=== PATIENT | female | born 1990 | race Caucasian/White ===

== ENCOUNTER 2017-09-06 12:17 | Emergency (ER) | payer BC, OTHER ==
[2017-09-06 14:03] LABS: ALT 28 U/L (9-52); AST 28 U/L (14-36); Albumin 3.8 g/dL (3.5-5.0); Alkaline Phosphatase 61 U/L (38-126); Anion Gap 12 mmol/L; Basophils % (A) 0 %; Blood Urea Nitrogen 11 mg/dL (7-17); Calcium 8.9 mg/dL (8.4-10.2); Carbon Dioxide 22 mmol/L (22-30); Chloride 101 mmol/L (98-107); Eosinophils # (A) 0.1 k/uL (0-0.7); Eosinophils % (A) 1 %; Glucose 89 mg/dL (74-99); HCT 37.1 % (34.0-46.0); Lymphocytes # (A) 0.7 k/uL (1.0-4.8); Lymphocytes % (A) 9 %; MCH 27.3 pg (25.0-35.0); MCHC 35.1 g/dL (31.0-37.0); Mean Platelet Volume 6.6; Monocytes # (A) 0.3 k/uL (0-1.0); Monocytes % (A) 4 %; Neutrophils # (A) 6.4 k/uL (1.3-7.7); Neutrophils % (A) 84 %; Platelet Count 345 k/uL (150-450); Potassium 3.8 mmol/L (3.5-5.1); RBC 4.77 m/uL (3.80-5.40); RDW 13.6 % (11.5-15.5); Sodium 135 mmol/L (137-145); Total Bilirubin 0.5 mg/dL (0.2-1.3); Total Protein 7.1 g/dL (6.3-8.2); WBC 7.6 k/uL (3.8-10.6)
[2017-09-06 14:04] LABS: MCV 77.9 fL (80.0-100.0)
[2017-09-06] MEDS ORDERED: SODIUM CHLORIDE 0.9% 1,000 ML IV ONE (14:11)
[2017-09-06] MEDS ORDERED: ACETAMINOPHEN TAB 500 MG TAB PO STA (14:16)
--- NOTE | 2017-09-06 14:19 | ED ---
General Adult HPI - General Chief complaint: Dizziness Stated complaint: Dizzy, Nauseated Time Seen by Provider: 09/06/17 13:38 Source: patient Mode of arrival: wheelchair Limitations: no limitations - History of Present Illness Initial comments: 27-year-old 9 week female presenting with generalized body aches and nausea. Patient states his symptoms began yesterday evening. She states that she had subjective fevers and was unable to sleep secondary to her symptoms. She denies getting her flu shot this year. She denies any sick contacts. Denies any vaginal bleeding or discharge or abdominal pain. She isn't taking anything for her symptoms. Denies cough, CP, or shortness of breath - Related Data Home Medications Medication Instructions Recorded Confirmed Vgt-Bnms-Yeohz Acid 1 cap PO DAILY 09/06/17 09/06/17 [-U Capsule (formulary)] Previous Rx's Medication Instructions Recorded Cephalexin [Keflex] 500 mg PO Q12HR 7 Days #14 cap 09/06/17 L.acidoph,Paracasei, B.lactis 1 each PO DAILY #20 capsule 09/06/17 [Probiotic] Allergies Allergy/AdvReac Type Severity Reaction Status Date / Time amoxicillin trihydrate AdvReac Abdominal Verified 09/06/17 14:16 [From Augmentin] Pain potassium clavulanate AdvReac Abdominal Verified 09/06/17 14:16 [From Augmentin] Pain tegaderm Allergy Rash/Hives Uncoded 09/06/17 13:07 Review of Systems ROS Statement: Those systems with pertinent positive or pertinent negative responses have been documented in the HPI. Review of Systems Constitutional: Positive fever, chills Eyes: Denies change in vision, Denies pain Ears, nose, mouth, throat: Denies headaches, Denies sore throat Cardiovascular: Denies chest pain. Denies palpitations Respiratory: Denies shortness of breath, Denies cough Gastrointestinal: Denies abdominal pain. Admits to nausea. Denies vomiting or diarrhea. Genitourinary: Denies hematuria, Denies infections Musculoskeletal: Denies pain, Denies swelling. Positive myalgias Integumentary: Denies rash Neurological: Denies headache, focal weakness, focal numbness Psychiatric: Denies anxiety, Denies depression Hematologic/Lymphatic: Denies easy bleeding or bruising ROS Other: All systems not noted in ROS Statement are negative. Past Medical History Past Medical History: Fibromyalgia, GERD/Reflux Additional Past Medical History / Comment(s): Fibromyalgia, chronic pain, 2015 pancreatitis. History of Any Multi-Drug Resistant Organisms: None Reported Past Surgical History: Cholecystectomy Additional Past Surgical History / Comment(s): Dilation and Currettage Past Anesthesia/Blood Transfusion Reactions: No Reported Reaction Past Psychological History: No Psychological Hx Reported Smoking Status: Former smoker Past Alcohol Use History: None Reported Past Drug Use History: None Reported - Past Family History Father Family Medical History: Coronary Artery Disease (CAD) Additional Family Medical History / Comment(s): Hx CABG Mother Family Medical History: No Reported History General Exam - General Exam Comments Initial Comments: General: Awake, alert, No acute Distress HENT: Normocephalic. Atraumatic Eyes: PERRL. EOMI. No scleral icterus. No injected conjunctiva Neck: Full ROM Chest/Lungs: Clear to auscultation bilaterally. No wheezing, rhonchi, or rales Cardiac: Regular rate, rhythm. No murmurs or rubs Abdomen/GI: [Soft, nontender, nondistended. No rebound, guarding, or rigidity. Musculoskeletal: Full ROM Skin: Warm, dry, intact Neurologic: A/Ox3, no weakness, no sensory deficit, no abdnormal gait, no coordination deficit Limitations: no limitations Course Vital Signs 09/06/17 09/06/17 09/06/17 13:04 14:36 15:29 Temperature 100.3 F H 101.1 F H 99.0 F Pulse Rate 118 H 76 Respiratory 20 20 Rate Blood Pressure 96/57 93/46 O2 Sat by Pulse 100 99 Oximetry 09/06/17 15:39 Temperature Pulse Rate 98 Respiratory 20 Rate Blood Pressure 107/59 O2 Sat by Pulse Oximetry Medical Decision Making - Medical Decision Making 27-year-old 9 week female presenting with myalgias, subjective fever, nausea. Initial exam patient is awake, alert, no acute distress. She is tachycardic without hypotensive. She is febrile as well. Nontoxic-appearing on exam. Patient found to have UTI. She states her allergy to amoxicillin is abdominal cramping. Discussed taking Keflex with probiotics. She has no allergic reaction or anaphylactic reaction to the medication. Patient's tachycardia and fever have resolved. Her BP is 107/59. She feels improved. Unlikely sepsis at this time as patient has no leukocytosis and is nontoxic appearing. No further emergent workup indicated. The patient was given return to ED instructions. They were instructed to follow up with their primary care provider. Stable for discharge at this time. - Lab Data Result diagrams: 09/06/17 13:27 09/06/17 13:27 Lab Results 09/06/17 09/06/17 09/06/17 Range/Units 13: 13: 14:25 WBC 7.6 (3.8-10.6) k/uL RBC 4.77 (3.80-5.40) m/uL Hgb 13.0 (11.4-16.0) gm/dL Hct 37.1 (34.0-46.0) % MCV 77.9 L D (80.0-100.0) fL MCH 27.3 (25.0-35.0) pg MCHC 35.1 (31.0-37.0) g/dL RDW 13.6 (11.5-15.5) % Plt Count 345 (150-450) k/uL Neutrophils % 84 % Lymphocytes % 9 % Monocytes % 4 % Eosinophils % 1 % Basophils % 0 % Neutrophils # 6.4 (1.3-7.7) k/uL Lymphocytes # 0.7 L (1.0-4.8) k/uL Monocytes # 0.3 (0-1.0) k/uL Eosinophils # 0.1 (0-0.7) k/uL Basophils # 0.0 (0-0.2) k/uL Sodium 135 L (137-145) mmol/L Potassium 3.8 (3.5-5.1) mmol/L Chloride 101 (98-107) mmol/L Carbon Dioxide 22 (22-30) mmol/L Anion Gap 12 mmol/L BUN 11 (7-17) mg/dL Creatinine 0.45 L (0.52-1.04) mg/dL Est GFR (CKD-EPI)AfAm >90 (>60 ml/min/1.73 sqM) Est GFR (CKD-EPI)NonAf >90 (>60 ml/min/1.73 sqM) Glucose 89 (74-99) mg/dL Calcium 8.9 (8.4-10.2) mg/dL Total Bilirubin 0.5 (0.2-1.3) mg/dL AST 28 (14-36) U/L ALT 28 (9-52) U/L Alkaline Phosphatase 61 (38-126) U/L Total Protein 7.1 (6.3-8.2) g/dL Albumin 3.8 (3.5-5.0) g/dL Urine Color Yellow Urine Appearance Clear (Clear) Urine pH 6.0 (5.0-8.0) Ur Specific [place] 1.027 (1.001-1.035) Urine Protein Trace H (Negative) Urine Glucose (UA) Negative (Negative) Urine Ketones 2+ H (Negative) Urine Blood Negative (Negative) Urine Nitrite Negative (Negative) Urine Bilirubin Negative (Negative) Urine Urobilinogen <2.0 (<2.0) mg/dL Ur Leukocyte Esterase Moderate H (Negative) Urine RBC 1 (0-5) /hpf Urine WBC 23 H (0-5) /hpf Ur Squamous Epith Cells 6 H (0-4) /hpf Amorphous Sediment Occasional H (None) /hpf Urine Bacteria Rare H (None) /hpf Urine Mucus Few H (None) /hpf Influenza Type A RNA (Not Detectd) Influenza Type B (PCR) (Not Detectd) 09/06/17 Range/Units 14:25 WBC (3.8-10.6) k/uL RBC (3.80-5.40) m/uL Hgb (11.4-16.0) gm/dL Hct (34.0-46.0) % MCV (80.0-100.0) fL MCH (25.0-35.0) pg MCHC (31.0-37.0) g/dL RDW (11.5-15.5) % Plt Count (150-450) k/uL Neutrophils % % Lymphocytes % % Monocytes % % Eosinophils % % Basophils % % Neutrophils # (1.3-7.7) k/uL Lymphocytes # (1.0-4.8) k/uL Monocytes # (0-1.0) k/uL Eosinophils # (0-0.7) k/uL Basophils # (0-0.2) k/uL Sodium (137-145) mmol/L Potassium (3.5-5.1) mmol/L Chloride (98-107) mmol/L Carbon Dioxide (22-30) mmol/L Anion Gap mmol/L BUN (7-17) mg/dL Creatinine (0.52-1.04) mg/dL Est GFR (CKD-EPI)AfAm (>60 ml/min/1.73 sqM) Est GFR (CKD-EPI)NonAf (>60 ml/min/1.73 sqM) Glucose (74-99) mg/dL Calcium (8.4-10.2) mg/dL Total Bilirubin (0.2-1.3) mg/dL AST (14-36) U/L ALT (9-52) U/L Alkaline Phosphatase (38-126) U/L Total Protein (6.3-8.2) g/dL Albumin (3.5-5.0) g/dL Urine Color Urine Appearance (Clear) Urine pH (5.0-8.0) Ur Specific [place] (1.001-1.035) Urine Protein (Negative) Urine Glucose (UA) (Negative) Urine Ketones (Negative) Urine Blood (Negative) Urine Nitrite (Negative) Urine Bilirubin (Negative) Urine Urobilinogen (<2.0) mg/dL Ur Leukocyte Esterase (Negative) Urine RBC (0-5) /hpf Urine WBC (0-5) /hpf Ur Squamous Epith Cells (0-4) /hpf Amorphous Sediment (None) /hpf Urine Bacteria (None) /hpf Urine Mucus (None) /hpf Influenza Type A RNA Not Detected (Not Detectd) Influenza Type B (PCR) Not Detected (Not Detectd) Disposition Clinical Impression: UTI (urinary tract infection), Nausea, Febrile illness, acute Disposition: HOME SELF-CARE Condition: Good Instructions: Urinary Tract Infection in (ED), Nausea and Vomiting in (ED) Additional Instructions: Return to emergency department if unable to control fever with Tylenol at home, unable to tolerate foods and liquids, if you develop lower abdominal pain, vaginal bleeding, vaginal discharge. Use Benadryl 25 mg-50 mg every 8 hours as needed for nausea and vomiting. Prescriptions: Cephalexin [Keflex] 500 mg PO Q12HR 7 Days #14 cap L.acidoph,Paracasei, B.lactis [Probiotic] 1 each PO DAILY #20 capsule Referrals: Reuben Lobato DO [Primary Care Provider] - 1-2 days
[2017-09-06 14:53] LABS: Amorphous Sediment,Urine Occasional /hpf; Appearance,Urine Clear (Clear); Bacteria,Urine Rare /hpf; Bilirubin,Urine Negative (Negative); Blood,Urine Negative (Negative); Color,Urine Yellow; Glucose,Urine (UA) Negative (Negative); Ketones,Urine 2+ (Negative); Leukocyte Esterase,Urine Moderate (Negative); Mucus,Urine Few /hpf; Nitrite,Urine Negative (Negative); Protein,Urine Trace (Negative); RBC,Urine 1 /hpf (0-5); Specific Gravity,Urine 1.027 (1.001-1.035); Squamous Epithelial Cell,Urine 6 /hpf (0-4); Urobilinogen,Urine <2.0 mg/dL (<2.0); WBC,Urine 23 /hpf (0-5)
[2017-09-06] MEDS ORDERED: METOCLOPRAMIDE 5 MG/ML 2 ML VIAL IVP STA (15:12)
[2017-09-06] MEDS ORDERED: diphenhydrAMINE 50 MG/ML 1 ML VIAL IVP STA (15:12)
[2017-09-06 16:54] VITALS: BP 100/63; PULSE 92; RESP 18; TEMP 98.9
== END 2017-09-06 16:20 | disposition home or self-care (01) ==
LOC: EC 12:17
DX: O23.41 Unspecified infection of urinary tract in pregnancy, first trimester (principal); O99.89 Other specified diseases and conditions complicating pregnancy, childbirth and the puerperium; R50.9 Fever, unspecified; R11.0 Nausea; R00.0 Tachycardia, unspecified; Z3A.09 9 weeks gestation of pregnancy; Z87.891 Personal history of nicotine dependence; Z88.0 Allergy status to penicillin; Z88.8 Allergy status to other drugs, medicaments and biological substances
CPT/HCPCS: 36415; 80053; 85025; 81001; 87502; 99284; 96374; 96375; 96361 ×2; J1200; J2765

== ENCOUNTER → 2017-09-27 | Outpatient (CLI) | payer OTHER ==
[2017-09-27 15:12] LABS: HGB 11.6 gm/dL (11.4-16.0); MCH 26.2 pg (25.0-35.0); MCV 79.5 fL (80.0-100.0); Platelet Count 386 k/uL (150-450); RDW 14.1 % (11.5-15.5); WBC 7.6 k/uL (3.8-10.6)
[2017-09-27 15:22] LABS: Glucose 86 mg/dL (74-99)
--- NOTE | 2017-09-27 15:51 | US ---
EXAMINATION TYPE: Transabdominal DATE OF EXAM: 09/13/17 COMPARISON: NONE CLINICAL HISTORY: Z36 CONFIRM DD. Confirm dates, 6, para 5 EXAM PERFORMED: Transabdominal (TA) EXAM MEASUREMENTS: GESTATIONAL AGE / DATING Physician Established: (11 weeks/3 days) EDC: 04/15/2018 Dates by LMP: (11 weeks/3 days) EDC: 04/15/2018 Dates by First Scan: This is 1st scan Dates by Current Scan for: ( 8 weeks/1 days) EDC: 05/08/2018 MATERNAL ANATOMY Uterus: 13.3 x 5.5 x 6.1cm, anteverted Right Ovary: 2.9 x 1.7 x 1.4cm Left Ovary: 2.5 x 1.5 x 2.4cm Post CDS / Adnexa: wnl Presence of free fluid: no Presence of corpus luteal cyst: not seen at this time Presence of subchorionic bleed: no GESTATION / SURVEY CRL: 1.74cm (8 weeks/1 days) Yolk Sac (normal less than 6mm): not seen at this time IUP: Demise Date of LMP: 07/09/2017 Beta HcG (if available): Not available at time of exam Intrauterine gestation is seen as there is pole and gestational sac identified. No yolk sac is present. Gestational sac is noted irregular in appearance with lobulation and lack of surrounding dec idual reaction. pole is irregularly shaped measuring 17 mm on long axis. heart tones clementine ot be detected at this time. No free fluid is seen in pelvic cul-de-sac. Both ovaries are identified. No suspicious extraovarian adnexal lesion is seen. IMPRESSION: Findings strongly support diagnosis of intrauterine demise especially given physician establish ed date of conception.
[2017-09-27 16:15] LABS: Amorphous Sediment,Urine Rare /hpf; Appearance,Urine Cloudy (Clear); Bacteria,Urine Moderate /hpf; Bilirubin,Urine Negative (Negative); Blood,Urine Negative (Negative); Color,Urine Light Yellow; Glucose,Urine (UA) Negative (Negative); Ketones,Urine Negative (Negative); Leukocyte Esterase,Urine Moderate (Negative); Mucus,Urine Rare /hpf; Nitrite,Urine Negative (Negative); PH, Urine 6.5 (5.0-8.0); Protein,Urine Negative (Negative); RBC,Urine 5 /hpf (0-5); Specific Gravity,Urine 1.007 (1.001-1.035); Squamous Epithelial Cell,Urine 14 /hpf (0-4); Urobilinogen,Urine <2.0 mg/dL (<2.0); WBC,Urine 3 /hpf (0-5)
[2017-09-27 20:39] LABS: HIV AB P24 Non-Reactive (Non-Reactive); HIV P24 AG Non-Reactive (Non-Reactive)
[2017-09-28 16:07] LABS: C. trachomatis,PCR Negative (Neg,Equiv); Chlamydia trachomatis Source Urine; N. gonorrhoeae,PCR Negative (Neg,Equiv); Neisseria Source Urine
== END | disposition home or self-care (01) ==
LOC: RADUSWWP 14:39
PROVIDERS: ATTEND Obstetrics & Gynecology
DX: O36.4XX0 Maternal care for intrauterine death, not applicable or unspecified (principal); O26.811 Pregnancy related exhaustion and fatigue, first trimester
CPT/HCPCS: 36415; 76801; 81001; 82565; 82947; 85027; 86762; 86780; 86850; 86900; 86901; 87086; 87340; 87390; 87491; 87591

== ENCOUNTER 2017-10-05 00:37 | Emergency (ER) | payer OTHER ==
[2017-10-05 01:06] LABS: Basophils % (A) 0 %; Eosinophils # (A) 0.3 k/uL (0-0.7); Eosinophils % (A) 1 %; HCT 33.1 % (34.0-46.0); HGB 10.6 gm/dL (11.4-16.0); Lymphocytes % (A) 16 %; MCH 25.7 pg (25.0-35.0); MCHC 32.1 g/dL (31.0-37.0); Mean Platelet Volume 7.1; Monocytes # (A) 0.5 k/uL (0-1.0); Monocytes % (A) 3 %; Neutrophils # (A) 14.7 k/uL (1.3-7.7); Neutrophils % (A) 79 %; Platelet Count 278 k/uL (150-450); RBC 4.13 m/uL (3.80-5.40); RDW 14.2 % (11.5-15.5); WBC 18.6 k/uL (3.8-10.6)
[2017-10-05 01:14] LABS: INR 1.2 (<1.2); Partial Thromboplastin Time 24.6 sec (22.0-30.0); Prothrombin Time 11.6 sec (9.0-12.0)
--- NOTE | 2017-10-05 01:14 | ED ---
General Adult HPI - General Chief complaint: Vaginal Bleeding Stated complaint: POSS MISCARRIAGE Time Seen by Provider: 10/05/17 00:41 Source: patient, EMS, RN notes reviewed, old records reviewed Mode of arrival: EMS Limitations: no limitations - History of Present Illness Initial comments: 27-year-old female presenting with vaginal bleeding. Patient is . She has 11 weeks by LMP. She states that for the past 3 days she has had vaginal bleeding, just prior to arrival patient had increase in vaginal bleeding and passing large clots. Patient has had vaginal bleeding issues with previous pregnancies including retained placenta requiring D&C. Patient was told that her fetus was at 8 weeks gestation, she is 11 weeks by LMP. She has been having some mild lower abdominal cramping in addition to her bleeding. - Related Data Home Medications Medication Instructions Recorded Confirmed Vfp-Ezer-Aycie Acid 1 cap PO DAILY 09/06/17 09/06/17 [-U Capsule (formulary)] Previous Rx's Medication Instructions Recorded Cephalexin [Keflex] 500 mg PO Q12HR 7 Days #14 cap 09/06/17 L.acidoph,Paracasei, B.lactis 1 each PO DAILY #20 capsule 09/06/17 [Probiotic] Doxycycline Monohydrate [Monodox] 100 mg PO Q12HR #28 cap 10/05/17 metroNIDAZOLE [Flagyl] 500 mg PO TID #42 tab 10/05/17 Allergies Allergy/AdvReac Type Severity Reaction Status Date / Time amoxicillin trihydrate AdvReac Abdominal Verified 10/05/17 00:39 [From Augmentin] Pain potassium clavulanate AdvReac Abdominal Verified 10/05/17 00:39 [From Augmentin] Pain tegaderm Allergy Rash/Hives Uncoded 10/05/17 00:39 Review of Systems ROS Statement: Those systems with pertinent positive or pertinent negative responses have been documented in the HPI. ROS Other: All systems not noted in ROS Statement are negative. Past Medical History Past Medical History: Fibromyalgia, GERD/Reflux Additional Past Medical History / Comment(s): Fibromyalgia, chronic pain, 2015 pancreatitis. History of Any Multi-Drug Resistant Organisms: None Reported Past Surgical History: Cholecystectomy Additional Past Surgical History / Comment(s): Dilation and Currettage Past Anesthesia/Blood Transfusion Reactions: No Reported Reaction Past Psychological History: Anxiety Smoking Status: Former smoker Past Alcohol Use History: None Reported Past Drug Use History: None Reported - Past Family History Father Family Medical History: Coronary Artery Disease (CAD) Additional Family Medical History / Comment(s): Hx CABG Mother Family Medical History: No Reported History General Exam Limitations: no limitations General appearance: alert, in no apparent distress Head exam: Present: atraumatic, normocephalic Eye exam: Present: normal appearance, PERRL ENT exam: Present: normal exam Neck exam: Present: normal inspection. Absent: tenderness, meningismus Respiratory exam: Present: normal lung sounds bilaterally. Absent: respiratory distress, wheezes Cardiovascular Exam: Present: regular rate, normal rhythm GI/Abdominal exam: Present: soft, tenderness (Mild suprapubic tenderness). Absent: distended External exam: Present: normal external exam Speculum exam: Present: vaginal bleeding, tissue By manual exam: Present: cervical motion tenderness Extremities exam: Present: normal inspection, full ROM, normal capillary refill. Absent: pedal edema Neurological exam: Present: alert, oriented X3 Psychiatric exam: Present: normal affect, normal mood Skin exam: Present: warm, dry, intact. Absent: cyanosis, diaphoretic, pallor Course Vital Signs 10/05/17 10/05/17 10/05/17 00:39 01:25 02:25 Temperature 100.0 F H Pulse Rate 79 80 72 Respiratory 18 19 19 Rate Blood Pressure 114/62 110/59 99/57 O2 Sat by Pulse 99 100 99 Oximetry 10/05/17 02:49 Temperature 98.5 F Pulse Rate 82 Respiratory 16 Rate Blood Pressure 108/63 O2 Sat by Pulse Oximetry - Reevaluation(s) Reevaluation #1: 10/05/17 04:33 On reevaluation, patient's vaginal bleeding has significantly slowed. Medical Decision Making - Medical Decision Making 27-year-old female presenting with vaginal bleeding and miscarriage. Patient does pass products of conception during pelvic exam. Bleeding diminishes over the course of her ER stay. She is O+ blood type. Hemoglobin 10.6 from recent of 11.6. This is relatively stable hemoglobin. Laboratory studies reveal down trending hCG 330. White blood cell count significantly elevated at 18.6. Ultrasound is obtained, there is endometrial thickening and concern for retained blood clot and debris. Case is discussed with Dr. Arteaga due to the concern for endometritis and infection. She recommends outpatient antibiotics. Patient will be started on doxycycline and metronidazole. She will follow-up with [facility] in the next 1-2 days. - Lab Data Result diagrams: 10/05/17 00:45 10/05/17 00:45 Lab Results 10/05/17 10/05/17 10/05/17 Range/Units 00:45 00:45 00:45 WBC 18.6 H (3.8-10.6) k/uL RBC 4.13 (3.80-5.40) m/uL Hgb 10.6 L (11.4-16.0) gm/dL Hct 33.1 L (34.0-46.0) % MCV 80.0 (80.0-100.0) fL MCH 25.7 (25.0-35.0) pg MCHC 32.1 (31.0-37.0) g/dL RDW 14.2 (11.5-15.5) % Plt Count 278 (150-450) k/uL Neutrophils % 79 % Lymphocytes % 16 % Monocytes % 3 % Eosinophils % 1 % Basophils % 0 % Neutrophils # 14.7 H (1.3-7.7) k/uL Lymphocytes # 3.0 (1.0-4.8) k/uL Monocytes # 0.5 (0-1.0) k/uL Eosinophils # 0.3 (0-0.7) k/uL Basophils # 0.0 (0-0.2) k/uL PT 11.6 (9.0-12.0) sec INR 1.2 H (<1.2) APTT 24.6 (22.0-30.0) sec Sodium 143 (137-145) mmol/L Potassium 4.2 (3.5-5.1) mmol/L Chloride 108 H (98-107) mmol/L Carbon Dioxide 23 (22-30) mmol/L Anion Gap 12 mmol/L BUN 10 (7-17) mg/dL Creatinine 0.50 L (0.52-1.04) mg/dL Est GFR (CKD-EPI)AfAm >90 (>60 ml/min/1.73 sqM) Est GFR (CKD-EPI)NonAf >90 (>60 ml/min/1.73 sqM) Glucose 108 H (74-99) mg/dL Calcium 8.6 (8.4-10.2) mg/dL Total Bilirubin <0.1 L (0.2-1.3) mg/dL AST 12 L (14-36) U/L ALT 17 (9-52) U/L Alkaline Phosphatase 75 (38-126) U/L Total Protein 5.8 L (6.3-8.2) g/dL Albumin 3.3 L (3.5-5.0) g/dL HCG, Quant 330.4 mIU/mL Urine Color Urine Appearance (Clear) Urine pH (5.0-8.0) Ur Specific [place] (1.001-1.035) Urine Protein (Negative) Urine Glucose (UA) (Negative) Urine Ketones (Negative) Urine Blood (Negative) Urine Nitrite (Negative) Urine Bilirubin (Negative) Urine Urobilinogen (<2.0) mg/dL Ur Leukocyte Esterase (Negative) Blood Type Blood Type Recheck Antibody Screen Spec Expiration Date 10/05/17 10/05/17 Range/Units 00:45 04:00 WBC (3.8-10.6) k/uL RBC (3.80-5.40) m/uL Hgb (11.4-16.0) gm/dL Hct (34.0-46.0) % MCV (80.0-100.0) fL MCH (25.0-35.0) pg MCHC (31.0-37.0) g/dL RDW (11.5-15.5) % Plt Count (150-450) k/uL Neutrophils % % Lymphocytes % % Monocytes % % Eosinophils % % Basophils % % Neutrophils # (1.3-7.7) k/uL Lymphocytes # (1.0-4.8) k/uL Monocytes # (0-1.0) k/uL Eosinophils # (0-0.7) k/uL Basophils # (0-0.2) k/uL PT (9.0-12.0) sec INR (<1.2) APTT (22.0-30.0) sec Sodium (137-145) mmol/L Potassium (3.5-5.1) mmol/L Chloride (98-107) mmol/L Carbon Dioxide (22-30) mmol/L Anion Gap mmol/L BUN (7-17) mg/dL Creatinine (0.52-1.04) mg/dL Est GFR (CKD-EPI)AfAm (>60 ml/min/1.73 sqM) Est GFR (CKD-EPI)NonAf (>60 ml/min/1.73 sqM) Glucose (74-99) mg/dL Calcium (8.4-10.2) mg/dL Total Bilirubin (0.2-1.3) mg/dL AST (14-36) U/L ALT (9-52) U/L Alkaline Phosphatase (38-126) U/L Total Protein (6.3-8.2) g/dL Albumin (3.5-5.0) g/dL HCG, Quant mIU/mL Urine Color Light Yellow Urine Appearance Clear (Clear) Urine pH 6.0 (5.0-8.0) Ur Specific [place] 1.015 (1.001-1.035) Urine Protein Negative (Negative) Urine Glucose (UA) Negative (Negative) Urine Ketones Negative (Negative) Urine Blood Negative (Negative) Urine Nitrite Negative (Negative) Urine Bilirubin Negative (Negative) Urine Urobilinogen <2.0 (<2.0) mg/dL Ur Leukocyte Esterase Negative (Negative) Blood Type O Positive Blood Type Recheck No Antibody Screen NEGATIVE Spec Expiration Date 10/08/20172344 Disposition Clinical Impression: Miscarriage, Endometritis Disposition: HOME SELF-CARE Condition: Fair Instructions: Endometritis (ED), Miscarriage (ED) Prescriptions: Doxycycline Monohydrate [Monodox] 100 mg PO Q12HR #28 cap metroNIDAZOLE [Flagyl] 500 mg PO TID #42 tab Is patient prescribed a controlled substance at d/c from ED?: No Referrals: Reuben Lobato DO [Primary Care Provider] - 1-2 days Jim Osborn DO [Doctor of Osteopathic Medicine] - 1-2 days Time of Disposition: 04:36
[2017-10-05 01:16] LABS: ALT 17 U/L (9-52); AST 12 U/L (14-36); Albumin 3.3 g/dL (3.5-5.0); Alkaline Phosphatase 75 U/L (38-126); Anion Gap 12 mmol/L; Blood Urea Nitrogen 10 mg/dL (7-17); Calcium 8.6 mg/dL (8.4-10.2); Carbon Dioxide 23 mmol/L (22-30); Chloride 108 mmol/L (98-107); Glucose 108 mg/dL (74-99); Potassium 4.2 mmol/L (3.5-5.1); Sodium 143 mmol/L (137-145); Total Bilirubin <0.1 mg/dL (0.2-1.3); Total Protein 5.8 g/dL (6.3-8.2)
[2017-10-05 01:32] LABS: HCG,Quantitative Serum 330.4 mIU/mL
--- NOTE | 2017-10-05 02:30 | US ---
EXAMINATION TYPE: US transvaginal DATE OF EXAM: 10/05/2017 COMPARISON: NONE CLINICAL HISTORY: Pain. Bleeding mis carriage r/o retained products TECHNIQUE: Transvaginal (TV). EXAM MEASUREMENTS: Uterus: 10.7 x 5.1 x 5.9 cm 1. Uterus: Anteverted 2. Endometrium: Heterogenous in appearance ill defined borders. 3. Right Ovary: Obscured by overlying bowel gas 4. Left Ovary: Obscured by overlying bowel gas 5. Bilateral Adnexa: wnl 6. Posterior cul-de-sac: wnl IMPRESSION: No adnexal mass. There is heterogeneity in the endometrium that is consistent with retain ed blood clot and debris. Margins are indistinct. This could measure up to 2 cm in thickness.
[2017-10-05] MEDS ORDERED: SODIUM CHLORIDE 0.9% 1,000 ML IV ONE (02:56)
[2017-10-05 04:10] LABS: Appearance,Urine Clear (Clear); Bilirubin,Urine Negative (Negative); Blood,Urine Negative (Negative); Color,Urine Light Yellow; Glucose,Urine (UA) Negative (Negative); Ketones,Urine Negative (Negative); Leukocyte Esterase,Urine Negative (Negative); Nitrite,Urine Negative (Negative); Protein,Urine Negative (Negative); Specific Gravity,Urine 1.015 (1.001-1.035); Urobilinogen,Urine <2.0 mg/dL (<2.0)
[2017-10-05] MEDS ORDERED: cefTRIAXone IN SWFI 1,000 MG/10 ML SYRINGE IVP STA (04:33)
[2017-10-05] MEDS ORDERED: metroNIDAZOLE 500 MG TAB PO STA (04:39)
[2017-10-05] MEDS ORDERED: DOXYCYCLINE MONOHYDRATE 100 MG CAPSULE PO STA (04:39)
[2017-10-05 05:25] VITALS: BP 102/62; PULSE 72; RESP 18; TEMP 98
== END 2017-10-05 05:24 | disposition home or self-care (01) ==
LOC: EC 00:37
DX: O03.9 Complete or unspecified spontaneous abortion without complication (principal); O23.591 Infection of other part of genital tract in pregnancy, first trimester; O99.111 Other diseases of the blood and blood-forming organs and certain disorders involving the immune mechanism complicating pregnancy, first trimester; D72.829 Elevated white blood cell count, unspecified; Z87.891 Personal history of nicotine dependence; Z3A.11 11 weeks gestation of pregnancy; Z90.49 Acquired absence of other specified parts of digestive tract; Z88.0 Allergy status to penicillin; Z91.09 Other allergy status, other than to drugs and biological substances; Z79.899 Other long term (current) drug therapy
CPT/HCPCS: 99285; 96374; 96361; 36415; 93005; 86900; 86901; 88305; 80053; 85025; 85610; 85730; 86850; 81003; 84702; 87086; 76830; J0696

== ENCOUNTER → 2017-11-09 | Outpatient (CLI) | payer OTHER | END | disposition home or self-care (01) | LOC: LABWHC1 10:51 | PROVIDERS: ATTEND Obstetrics & Gynecology | DX: Z34.80 Encounter for supervision of other normal pregnancy, unspecified trimester (principal); Z3A.00 Weeks of gestation of pregnancy not specified | CPT/HCPCS: 36415; 84702 ==

== ENCOUNTER 2018-02-09 13:19 | Emergency (ER) | payer OTHER ==
[2018-02-09 13:42] VITALS: BP 100/63; PULSE 90; RESP 18; TEMP 98.1
--- NOTE | 2018-02-09 13:53 | ED ---
General Adult HPI - General Chief complaint: Extremity Injury, Lower Stated complaint: ankle injury Time Seen by Provider: 02/09/18 13:44 Source: patient, RN notes reviewed Mode of arrival: wheelchair Limitations: no limitations - History of Present Illness Initial comments: Patient is a 28-year-old female presenting to the emergency room today with chief complaint of an injury to the left ankle that occurred approximate half an hour ago. She states that she was trying to get into her car when she rolled her left ankle. Does admit to pain over the lateral aspect. Patient denies any other injury or trauma. Patient denies any recent fever, chills, shortness of breath, chest pain, back pain, abdominal pain, nausea or vomiting, headaches or visual changes, or any other complaints. - Related Data Home Medications Medication Instructions Recorded Confirmed Ygr-Bgmj-Sibsi Acid 1 cap PO DAILY 09/06/17 02/09/18 [-U Capsule (formulary)] Previous Rx's Medication Instructions Recorded L.acidoph,Paracasei, B.lactis 1 each PO DAILY #20 capsule 09/06/17 [Probiotic] Doxycycline Monohydrate [Monodox] 100 mg PO Q12HR #28 cap 10/05/17 Ibuprofen [Motrin] 600 mg PO Q6HR PRN #40 day 02/09/18 Allergies Allergy/AdvReac Type Severity Reaction Status Date / Time amoxicillin trihydrate AdvReac Abdominal Verified 02/09/18 13:42 [From Augmentin] Pain potassium clavulanate AdvReac Abdominal Verified 02/09/18 13:42 [From Augmentin] Pain tegaderm Allergy Rash/Hives Uncoded 02/09/18 13:42 Review of Systems ROS Statement: Those systems with pertinent positive or pertinent negative responses have been documented in the HPI. ROS Other: All systems not noted in ROS Statement are negative. Past Medical History Past Medical History: Fibromyalgia, GERD/Reflux Additional Past Medical History / Comment(s): Fibromyalgia, chronic pain, 2015 pancreatitis. History of Any Multi-Drug Resistant Organisms: None Reported Past Surgical History: Cholecystectomy Additional Past Surgical History / Comment(s): Dilation and Currettage Past Anesthesia/Blood Transfusion Reactions: No Reported Reaction Past Psychological History: Anxiety Smoking Status: Former smoker Past Alcohol Use History: None Reported Past Drug Use History: None Reported - Past Family History Father Family Medical History: Coronary Artery Disease (CAD) Additional Family Medical History / Comment(s): Hx CABG Mother Family Medical History: No Reported History General Exam - General Exam Comments Initial Comments: General: The patient is awake and alert, in no distress, and does not appear acutely ill. Neck: The neck is supple, there is no tenderness or JVD. Musculoskeletal: Patient does have moderate swelling to the lateral aspect of left ankle. Shows limited range of motion with both plantar and dorsiflexion. Patient mild tenderness over the third and fourth proximal metatarsals. Mildly tender over the left fibular head. Sensation is intact. Pedal pulse 2+. Neurological: A&O x 3. CN II-XII intact, There are no obvious motor or sensory deficits. Coordination appears grossly intact. Speech is normal. Skin: Skin is warm and dry and no rashes or lesions are noted. Psychiatric: Normal mood and affect. Limitations: no limitations Course Vital Signs 02/09/18 13:40 Temperature 98.1 F Pulse Rate 90 Respiratory 18 Rate Blood Pressure 100/63 O2 Sat by Pulse 100 Oximetry Medical Decision Making - Medical Decision Making Patient's x-rays reviewed and are negative for any acute fracture dislocation. Patient given Aircast splint here in the emergency room. Will be given crutches to use with weightbearing as tolerated. Patient advised to continue to ice elevate the affected area use ibuprofen for pain. Advised follow-up in 7 -10 days if symptoms persist for repeat x-ray. Disposition Clinical Impression: Ankle sprain Disposition: HOME SELF-CARE Instructions: Ankle Sprain (ED) Additional Instructions: Please continue to ice elevate the affected area at least 4 times a day for 20 minutes at a time. Please use Tylenol/ibuprofen for pain. Please follow-up in 7-10 days for repeat x-rays if symptoms persist. Please return to emergency room for any other concerns. Prescriptions: Ibuprofen [Motrin] 600 mg PO Q6HR PRN #40 day PRN Reason: Pain Is patient prescribed a controlled substance at d/c from ED?: No Referrals: Reuben Lobato DO [Primary Care Provider] - 1-2 days Destin Diaz MD [Medical Doctor] - 1-2 days Time of Disposition: 14:41
--- NOTE | 2018-02-09 14:27 | XR ---
EXAMINATION TYPE: XR ankle complete LT DATE OF EXAM: 02/09/2018 COMPARISON: NONE HISTORY: Pain TECHNIQUE: 3 views of the left ankle are submitted for evaluation. FINDINGS: There is no evidence for fracture or dislocation. Ankle mortise is intact. Soft tissues swe lling noted. IMPRESSION: 1. No evidence for acute fracture.
--- NOTE | 2018-02-09 14:32 | XR ---
EXAMINATION TYPE: XR foot complete LT DATE OF EXAM: 02/09/2018 CLINICAL HISTORY: pain TECHNIQUE: Frontal, lateral and oblique images of the left foot are obtained. COMPARISON: None. FINDINGS: There is no acute fracture/dislocation evident. The joint spaces appear within normal juares its. Lateral soft tissue swelling noted. Radiopaque density overlies the soft tissues at the level of the metatarsal phalangeal joint. Correlate for foreign body. IMPRESSION: There is no acute fracture or dislocation. Soft tissue injury. See above. ICD 10 NO FRACTURE, INITIAL EVALUATION
--- NOTE | 2018-02-09 14:32 | XR ---
EXAMINATION TYPE: XR tibia fibula LT DATE OF EXAM: 02/09/2018 CLINICAL HISTORY: pain TECHNIQUE: AP and lateral images of the left tibia and fibula are obtained. COMPARISON: None. FINDINGS: There is no acute fracture/dislocation evident. The joint spaces appear within normal juares its. The overlying soft tissue appears unremarkable. IMPRESSION: There is no acute fracture or dislocation seen. ICD 10 NO FRACTURE, INITIAL EVALUATION
== END 2018-02-09 14:52 | disposition home or self-care (01) ==
LOC: EC 13:19
DX: S93.402A Sprain of unspecified ligament of left ankle, initial encounter (principal); Z87.891 Personal history of nicotine dependence; Z88.0 Allergy status to penicillin; Z91.048 Other nonmedicinal substance allergy status; X50.1XXA Overexertion from prolonged static or awkward postures, initial encounter; Y93.89 Activity, other specified
CPT/HCPCS: 73590; 73610; 73630; 99283; 29515; L4350

== ENCOUNTER 2018-06-04 23:50 | Emergency (ER) | payer OTHER ==
[2018-06-04 23:56] VITALS: BP 119/78; PULSE 98; RESP 16; TEMP 98.5
--- NOTE | 2018-06-05 01:51 | XR ---
EXAMINATION TYPE: XR foot complete RT DATE OF EXAM: 06/05/2018 COMPARISON: NONE HISTORY: Laceration TECHNIQUE: 3 views FINDINGS: I see no fracture nor dislocation. Joint spaces are normal. There is no sign of foreign bod y. Metatarsals are intact. There is 1 mm calcification adjacent to the base of the proximal phalanx o f the little toe that could be from old injury. IMPRESSION: Negative right foot exam.
[2018-06-05] MEDS ORDERED: DIPH,PERTUS(ACELL)TETVAC-LF 0.5 ML VIAL IM ONE (02:07)
--- NOTE | 2018-06-05 02:20 | ED ---
General Adult HPI - General Chief complaint: Wound/Laceration Stated complaint: R foot laceration Time Seen by Provider: 06/05/18 01:29 Source: patient, RN notes reviewed Mode of arrival: ambulatory Limitations: no limitations - History of Present Illness Initial comments: 28-year-old female presents to the emergency department for a chief complaint of laceration to the bottom of the right foot occurring about one hour prior to arrival. Patient states the cookie cutter was plastic. Patient denies wearing shoes at the time of this incident. Patient did not walk on the foot after this occurred. She denies any other injuries. Patient is not up-to-date on tetanus. Patient has no other complaints at this time including shortness of breath, chest pain, abdominal pain, nausea or vomiting, headache, or visual changes. - Related Data Home Medications Medication Instructions Recorded Confirmed Mrs-Bnew-Ajdyn Acid 1 cap PO DAILY 09/06/17 02/09/18 [-U Capsule (formulary)] Previous Rx's Medication Instructions Recorded L.acidoph,Paracasei, B.lactis 1 each PO DAILY #20 capsule 09/06/17 [Probiotic] Doxycycline Monohydrate [Monodox] 100 mg PO Q12HR #28 cap 10/05/17 Ibuprofen [Motrin] 600 mg PO Q6HR PRN #40 day 02/09/18 Allergies Allergy/AdvReac Type Severity Reaction Status Date / Time amoxicillin trihydrate AdvReac Abdominal Verified 06/04/18 23:56 [From Augmentin] Pain potassium clavulanate AdvReac Abdominal Verified 06/04/18 23:56 [From Augmentin] Pain tegaderm Allergy Rash/Hives Uncoded 06/04/18 23:56 Review of Systems ROS Statement: Those systems with pertinent positive or pertinent negative responses have been documented in the HPI. ROS Other: All systems not noted in ROS Statement are negative. Past Medical History Past Medical History: Fibromyalgia, GERD/Reflux Additional Past Medical History / Comment(s): Fibromyalgia, chronic pain, 2015 pancreatitis. History of Any Multi-Drug Resistant Organisms: None Reported Past Surgical History: Cholecystectomy Additional Past Surgical History / Comment(s): Dilation and Currettage Past Anesthesia/Blood Transfusion Reactions: No Reported Reaction Past Psychological History: Anxiety Smoking Status: Former smoker Past Alcohol Use History: None Reported Past Drug Use History: None Reported - Past Family History Father Family Medical History: Coronary Artery Disease (CAD) Additional Family Medical History / Comment(s): Hx CABG Mother Family Medical History: No Reported History General Exam Limitations: no limitations General appearance: alert, in no apparent distress Head exam: Present: atraumatic, normocephalic, normal inspection Eye exam: Present: normal appearance, PERRL, EOMI. Absent: scleral icterus, conjunctival injection, periorbital swelling ENT exam: Present: normal exam, mucous membranes moist Neck exam: Present: normal inspection, full ROM. Absent: tenderness, meningismus, lymphadenopathy Respiratory exam: Present: normal lung sounds bilaterally. Absent: respiratory distress, wheezes, rales, rhonchi, stridor Cardiovascular Exam: Present: regular rate, normal rhythm, normal heart sounds. Absent: systolic murmur, diastolic murmur, rubs, gallop, clicks Extremities exam: Present: full ROM (Full range of motion of all digits in the right lower extremity), normal capillary refill (Capillary refill less than 2 seconds and DP pulse 2+ in the right lower extremity), other (Patient does have a 3 cm flap-like laceration noted to the plantar aspect of the right foot over the fourth and fifth metacarpal heads. No foreign bodies evident. No evidence of infection.) Course Vital Signs 06/04/18 23:53 Temperature 98.5 F Pulse Rate 98 Respiratory 16 Rate Blood Pressure 119/78 O2 Sat by Pulse 100 Oximetry Procedures - Laceration Laceration #1 Consent Obtained: verbal consent Indication: laceration Site: foot Size (cm): 3 Description: flap Depth: simple, single layer Anesthetic Used: lidocaine 1% Anesthesia Technique: local infiltration Amount (mls): 5 Pre-repair: wound explored, irrigated extensively (Irrigated extensively with pressure saline irrigation), deep structures intact Type of Sutures: other (Ethilon) Size of Sutures: 5-0 Number of Sutures: 8 Technique: simple, interrupted Patient Tolerated Procedure: well, no complications Medical Decision Making - Medical Decision Making 28-year-old female presents for laceration on the plantar aspect of the right foot. Patient stepped on a [employer] cutter. Patient was given tetanus while in the emergency department. X-ray shows a negative right foot exam. 1 mm calcification adjacent to the base of the proximal phalanx of the little toe that could be from old injury. No tenderness in this area at this time. Laceration is 3 cm and flap-like in nature. This was irrigated thoroughly and sutured with 8 simple interrupted sutures. No foreign bodies or signs of infection noted. Patient was not wearing shoes, no puncture wound, no need for antibiotic at this time. Discussed follow-up with primary care in 1-2 days for wound recheck. Discussed returning to the emergency Department if she has any signs of infection or worsening symptoms. Discussed returning in 7-10 days to have sutures removed. Patient aware to monitor for healing as this is a flap- like wound. Disposition Clinical Impression: Laceration Disposition: HOME SELF-CARE Condition: Good Instructions: Care For Your Stitches (ED), Laceration (ED) Additional Instructions: Please follow up with primary care in 1-2 days. Monitor for signs of infection such as burning or streaking redness and return if these occur. Keep the area clean. Take Motrin or Tylenol for pain. Return to the emergency department if you have any worsening symptoms. Return in 7-10 days to have sutures removed. Is patient prescribed a controlled substance at d/c from ED?: No Referrals: Reuben Lobato DO [Primary Care Provider] - 1-2 days Time of Disposition: 02:20
== END 2018-06-05 03:05 | disposition home or self-care (01) ==
LOC: EC 23:50
DX: S91.311A Laceration without foreign body, right foot, initial encounter (principal); Z87.891 Personal history of nicotine dependence; Z88.0 Allergy status to penicillin; Z88.8 Allergy status to other drugs, medicaments and biological substances; Z23 Encounter for immunization; W22.8XXA Striking against or struck by other objects, initial encounter
CPT/HCPCS: 12002; 90471; 90715; 99283

== ENCOUNTER → 2018-08-15 | Outpatient (CLI) | payer OTHER ==
[2018-08-15 14:05] LABS: HCT 36.4 % (34.0-46.0); HGB 11.7 gm/dL (11.4-16.0); MCH 25.8 pg (25.0-35.0); MCHC 32.2 g/dL (31.0-37.0); MCV 80.2 fL (80.0-100.0); Mean Platelet Volume 6.4; Platelet Count 381 k/uL (150-450); RBC 4.54 m/uL (3.80-5.40); RDW 15.5 % (11.5-15.5); WBC 11.5 k/uL (3.8-10.6)
[2018-08-15 14:17] LABS: Glucose 89 mg/dL (74-99)
--- NOTE | 2018-08-16 03:25 | US ---
EXAMINATION TYPE: Ultrasound OB <= 14 week fetus DATE OF EXAM: 08/15/2018 1:18 PM COMPARISON: NONE CLINICAL HISTORY: 28-year-old female [id number] Comfirm dates. EXAM PERFORMED: Transabdominal (TA) FINDINGS: EXAM MEASUREMENTS: GESTATIONAL AGE / DATING Physician Established: Not yet established Dates by LMP: (9 weeks/2 days) EDC: 03/18/19 Dates by First Scan: No previous this is first scan Dates by Current Scan for: (9 weeks/1 days) EDC: 03/19/19 MATERNAL ANATOMY Uterus: 9.6 x 6.4 x 6.4cm Right Ovary: 2.9 x 2.8 x 2.0cm Left Ovary: 2.8 x 1.4 x 1.5cm Post CDS / Adnexa: wnl Presence of free fluid: no Presence of corpus luteal cyst: yes, right ovary = 1.6 x 1.9 x 1.8cm GESTATION / SURVEY CRL: 2.5cm (9 weeks/1 days) Yolk Sac (normal less than 6mm): 0.4cm Heart Rate: 175 bpm Rhythm: Normal IUP: Viable IUP Date of LMP: 06/11/18 Beta HcG (if available): Not available at this time Chlorobutadiene Scrubber Operator notes: Single viable IUP 9wks/1day with BALDEMAR of 03/19/19. Corpus luteum right ovary IMPRESSION: 1. Single live intrauterine with estimated gestational age of 9 weeks 2 days by LMP. Curren t ultrasound biometry is concordant (9 weeks 1 day by crown-rump length). 2. heart rate at the upper limits of normal (175 BPM). Follow-up as indicated. 3. Otherwise, complete survey recommended at 18-20 weeks.
== END | disposition home or self-care (01) ==
LOC: RADUSWWP 13:00
PROVIDERS: ATTEND Obstetrics & Gynecology
DX: Z36.89 Encounter for other specified antenatal screening (principal); Z3A.09 9 weeks gestation of pregnancy; Z34.81 Encounter for supervision of other normal pregnancy, first trimester
CPT/HCPCS: 36415; 76801; 82565; 82947; 85027; 86762; 86780; 86850; 86900; 86901; 87340

== ENCOUNTER 2019-01-29 14:18 | Outpatient (CLI) | payer OTHER ==
[2019-01-29 14:25] LABS: Glucose,Whole Blood 79 mg/dL (75-99)
[2019-01-29 14:49] LABS: Appearance,Urine Clear (Clear); Bacteria,Urine Occasional /hpf; Bilirubin,Urine Negative (Negative); Blood,Urine Negative (Negative); Color,Urine Yellow; Glucose,Urine (UA) Negative (Negative); Ketones,Urine 1+ (Negative); Leukocyte Esterase,Urine Small (Negative); Mucus,Urine Occasional /hpf; Nitrite,Urine Negative (Negative); Protein,Urine Negative (Negative); RBC,Urine 1 /hpf (0-5); Specific Gravity,Urine 1.013 (1.001-1.035); Squamous Epithelial Cell,Urine 2 /hpf (0-4); Urobilinogen,Urine <2.0 mg/dL (<2.0); WBC,Urine 2 /hpf (0-5)
[2019-01-29 15:16] LABS: Anisocytosis Slight; HCT 32.5 % (34.0-46.0); HGB 10.9 gm/dL (11.4-16.0); MCH 27.7 pg (25.0-35.0); MCHC 33.5 g/dL (31.0-37.0); MCV 82.5 fL (80.0-100.0); Mean Platelet Volume 7.2; Platelet Count 287 k/uL (150-450); RBC 3.94 m/uL (3.80-5.40); RDW 16.4 % (11.5-15.5); WBC 6.2 k/uL (3.8-10.6)
[2019-01-29 15:32] LABS: ALT 115 U/L (9-52); AST 73 U/L (14-36); African American GFR (CKD) >90 (>60 ml/min/1.73 sqM); Albumin 3.1 g/dL (3.5-5.0); Alkaline Phosphatase 134 U/L (38-126); Anion Gap 9 mmol/L; Blood Urea Nitrogen 7 mg/dL (7-17); Calcium 8.8 mg/dL (8.4-10.2); Carbon Dioxide 22 mmol/L (22-30); Chloride 104 mmol/L (98-107); Glucose 75 mg/dL (74-99); Magnesium 1.4 mg/dL (1.6-2.3); Phosphorus 3.5 mg/dL (2.5-4.5); Potassium 3.7 mmol/L (3.5-5.1); Sodium 135 mmol/L (137-145); Total Bilirubin 0.7 mg/dL (0.2-1.3); Total Protein 6.1 g/dL (6.3-8.2)
[2019-01-29 15:40] LABS: Band Neutrophils % 1 %; Eosinophils # (M) 0.06 k/uL (0-0.7); Lymphocytes # (M) 2.48 k/uL (1.0-4.8); Monocytes # (M) 0.37 k/uL (0-1.0); Neutrophils % (M) 52 %; Nucleated Red Blood Cells 0 /100 WBC (0-0); Total Cells Counted 100
[2019-01-29 15:41] LABS: Large Platelets Present; Polychromasia Present; Toxic Granulation Present
[2019-01-29 15:50] VITALS: BP 113/66; PULSE 101; RESP 16; TEMP 96.7
--- NOTE | 2019-02-07 08:44 | P.MSEPDOC ---
Presenting Problems - Arrival Data Date of Arrival on Unit: 01/29/19 Time of Arrival on Unit: 14:25 Mode of Transport: Ambulatory - Complaint Comment: labs, blood glucose check Medical History - Information : 7 Para: 5 Number of Living Children: 5 - Gestational Age Gestational Age by BALDEMAR (wks/days): 33 Weeks and 1 Days - History Complications: GDM Review of Systems - Review of Systems Constitutional: No problems Breast: No problems ENT: No problems Cardiovascular: No problems Respiratory: No problems Gastrointestinal: No problems Genitourinary: No problems Musculoskeletal: No problems Neurological: No problems Skin: No problems Vital Signs - Temperature Temperature: 96.7 F Temperature Source: Temporal Artery Scan - Pulse Right Sitting Brachial Pulse Rate: 101 Pulse Assessment Method: Automatic Cuff - Respirations Respiratory Rate: 16 Oxygen Delivery Method: Room Air - Blood Pressure Right Arm Sitting Blood Pressure: 113/66 Blood Pressure Mean: 81 Blood Pressure Source: Automatic Cuff Medical Screen Scoring (Pre) - Cervical Exam Dilation: Exam Deferred Effacement: Exam Deferred - Uterine Contractions Frequency: N/A Duration: N/A Intensity: N/A - Maternal Vital Signs Maternal Temperature: N/A Maternal Blood Pressure: N/A Signs of Preeclampsia: N/A Maternal Respirations: N/A - Maternal Trauma Maternal Trauma: N/A - Assessment - Baby A Baseline FHR: 135 Heart Rate - NICHD Category: Category I (Normal) = 0 NST: Reactive Position: N/A Station: N/A - Total Score - Baby A Total Score - Baby A: 0 - Total Score - Baby B Total Score - Baby B: 0 - Total Score - Baby C Total Score - Baby C: 0 - Level of Risk - Baby A Level of Risk - Baby A: Low (0-5) - Level of Risk - Baby B Level of Risk - Baby B: Low (0-5) - Level of Risk - Baby C Level of Risk - Baby C: Low (0-5) Physician Notification (Pre) - Physician Notified Physician Notified Date: 01/29/19 Physician Notified Time: 15:49 Physician/Practitioner Notifed:: dr phillips Spoke With: dr phillips New Order Received: Yes - Notification Comment Comment: dc home. pt to call to be seen in the office this week for NST and bp check Disposition - Disposition OB Disposition: Discharge to home Discharge Date: 01/29/19 Discharge Time: 15:49 I agree with the RN Medical Screening Exam: Yes Risk & Benefit of care provided described in d/c instruction: Yes Diagnosis: GESTATIONAL DIABETES IN , INSULIN CONTROLLED
== END 2019-01-29 15:51 | disposition home or self-care (01) ==
LOC: FBPOP 14:18
PROVIDERS: ATTEND Obstetrics & Gynecology
DX: O24.414 Gestational diabetes mellitus in pregnancy, insulin controlled (principal); Z3A.33 33 weeks gestation of pregnancy
CPT/HCPCS: 59025; 80053; 82009; 83735; 84100; 85025; 81001; G0463; 99215

== ENCOUNTER 2019-02-06 15:02 | Outpatient (CLI) | payer OTHER ==
[2019-02-06 16:06] LABS: Total Bilirubin 0.6 mg/dL (0.2-1.3)
== END 2019-02-06 16:30 | disposition home or self-care (01) ==
LOC: FBPOP 15:02
PROVIDERS: ATTEND Obstetrics & Gynecology
DX: O24.419 Gestational diabetes mellitus in pregnancy, unspecified control (principal); O26.619 Liver and biliary tract disorders in pregnancy, unspecified trimester; K83.1 Obstruction of bile duct; Z3A.00 Weeks of gestation of pregnancy not specified
CPT/HCPCS: 59025; 82239; 82247; 84450; 84460

== ENCOUNTER 2019-02-23 19:43 | Outpatient (CLI) | payer OTHER ==
[2019-02-23 21:57] VITALS: BP 111/69; PULSE 84; RESP 15; TEMP 97.3
--- NOTE | 2019-02-24 07:39 | P.MSEPDOC ---
Presenting Problems - Arrival Data Date of Arrival on Unit: 02/23/19 Time of Arrival on Unit: 19:43 Mode of Transport: Ambulatory - Complaint OB-Reason for Admission/Chief Complaint: Possible Onset of Labor Comment: Pt states contractions started at 1700 but they are irregular Medical History - Information : 7 Para: 5 Term: 5 Number of Living Children: 5 - Gestational Age Gestational Age by BALDEMAR (wks/days): 36 Weeks and 5 Days - History Complications: GDM Review of Systems - Review of Systems Constitutional: No problems Breast: No problems ENT: No problems Cardiovascular: No problems Respiratory: No problems Gastrointestinal: No problems Genitourinary: No problems Musculoskeletal: No problems Neurological: No problems Skin: No problems Vital Signs - Temperature Temperature: 97.3 F Temperature Source: Temporal Artery Scan - Pulse Pulse Oximetery Pulse Rate: 84 Pulse Assessment Method: Pulse Oximetry - Respirations Respiratory Rate: 15 Oxygen Delivery Method: Room Air O2 Sat by Pulse Oximetry: 99 - Blood Pressure Right Arm Blood Pressure: 111/69 Blood Pressure Mean: 83 Blood Pressure Source: Automatic Cuff Medical Screen Scoring (Pre) - Cervical Exam Dilation: 4-7 cm = 2 Membranes: Intact - Uterine Contractions Frequency: > 5 minutes apart = 1 Duration: N/A Intensity: N/A - Maternal Vital Signs Maternal Temperature: N/A Maternal Blood Pressure: N/A Signs of Preeclampsia: N/A Maternal Respirations: N/A - Maternal Trauma Maternal Trauma: N/A - Assessment - Baby A Baseline FHR: 135 Heart Rate - NICHD Category: Category I (Normal) = 0 NST: Reactive Position: N/A Station: N/A - Total Score - Baby A Total Score - Baby A: 3 - Total Score - Baby B Total Score - Baby B: 3 - Total Score - Baby C Total Score - Baby C: 3 - Level of Risk - Baby A Level of Risk - Baby A: Low (0-5) - Level of Risk - Baby B Level of Risk - Baby B: Low (0-5) - Level of Risk - Baby C Level of Risk - Baby C: Low (0-5) Physician Notification (Pre) - Physician Notified Physician Notified Date: 02/23/19 Physician Notified Time: 21:35 New Order Received: Yes Disposition - Disposition OB Disposition: Discharge to home Discharge Date: 02/23/19 Discharge Time: 21:45 I agree with the RN Medical Screening Exam: Yes Risk & Benefit of care provided described in d/c instruction: Yes Diagnosis: FALSE LABOR BEFORE 37 COMPLETED WEEKS OF GEST, THIRD TRI
== END 2019-02-23 21:45 | disposition home or self-care (01) ==
LOC: FBPOP 19:43
PROVIDERS: ATTEND Obstetrics & Gynecology
DX: O47.03 False labor before 37 completed weeks of gestation, third trimester (principal); Z3A.36 36 weeks gestation of pregnancy
CPT/HCPCS: 59025; G0463; 99213

== ENCOUNTER 2019-02-28 15:14 | Outpatient (CLI) | payer OTHER ==
[2019-02-28 15:51] LABS: Appearance,Urine Cloudy (Clear); Bacteria,Urine Rare /hpf; Bilirubin,Urine Negative (Negative); Blood,Urine Trace (Negative); Color,Urine Yellow; Glucose,Urine (UA) Negative (Negative); Ketones,Urine 1+ (Negative); Leukocyte Esterase,Urine Large (Negative); Mucus,Urine Few /hpf; Nitrite,Urine Negative (Negative); Protein,Urine Trace (Negative); RBC,Urine 1 /hpf (0-5); Specific Gravity,Urine 1.027 (1.001-1.035); Squamous Epithelial Cell,Urine 4 /hpf (0-4); WBC,Urine 32 /hpf (0-5)
[2019-02-28 15:53] LABS: Creatinine,Urine Random 196.3 mg/dL
[2019-02-28 16:03] LABS: Anisocytosis Slight; Basophils % (A) 0 %; Eosinophils # (A) 0.1 k/uL (0-0.7); Eosinophils % (A) 2 %; HCT 32.9 % (34.0-46.0); HGB 11.3 gm/dL (11.4-16.0); Lymphocytes # (A) 2.5 k/uL (1.0-4.8); Lymphocytes % (A) 36 %; MCH 27.9 pg (25.0-35.0); MCHC 34.2 g/dL (31.0-37.0); MCV 81.5 fL (80.0-100.0); Mean Platelet Volume 8.1; Monocytes # (A) 0.2 k/uL (0-1.0); Monocytes % (A) 3 %; Neutrophils # (A) 3.9 k/uL (1.3-7.7); Neutrophils % (A) 57 %; Platelet Count 273 k/uL (150-450); RBC 4.04 m/uL (3.80-5.40); RDW 16.8 % (11.5-15.5); WBC 6.8 k/uL (3.8-10.6)
[2019-02-28 16:11] LABS: ALT 185 U/L (9-52); AST 87 U/L (14-36); African American GFR (CKD) >90 (>60 ml/min/1.73 sqM); Blood Urea Nitrogen 8 mg/dL (7-17)
[2019-02-28 16:32] LABS: LDH 553 U/L (313-618)
[2019-02-28 16:53] VITALS: BP 109/60; PULSE 85; RESP 16; TEMP 97.2
--- NOTE | 2019-02-28 16:54 | US ---
EXAMINATION TYPE: US OB BPP wo non-stress DATE OF EXAM: 02/28/2019 COMPARISON: NONE CLINICAL HISTORY: Elevated Liver Enzymes. Gestational Diabetes; patient stated movement is note d regularly near patient's umbilicus EXAM PERFORMED: Transabdominal (TA) BPP PARAMETERS: PRESENTATION: cephalic LIE: Longitudinal?? HEART RATE: 154 bpm RHYTHM: Normal BERT: 14.1 DIAPHRAGM IMAGED: yes BPP SCORIN. Breathin (1 episode of breathing of 30 second duration in 30 minutes of scanning time) 2. Movement: 2 (at least 3 discrete body movements in 30 minutes) 3. Tone: 2 (1 episode of active flexion/extension of limb) 4. BERT: 2 (BERT index > 5cm) TOTAL SCORE: 8 / 8 Impression Biophysical profile score is normal.
--- NOTE | 2019-03-08 10:39 | P.MSEPDOC ---
Presenting Problems - Arrival Data Date of Arrival on Unit: 02/28/19 Time of Arrival on Unit: 15:14 Mode of Transport: Ambulatory - Complaint OB-Reason for Admission/Chief Complaint: PIH Comment: Pt sent for BPP and PIH work up Medical History - Information : 7 Para: 5 Term: 4 : 0 Abortions: Spontaneous or Elective: 0 Number of Living Children: 4 - Gestational Age Gestational Age by BALDEMAR (wks/days): 37 Weeks and 3 Days Review of Systems - Review of Systems Constitutional: No problems Breast: No problems ENT: No problems Cardiovascular: No problems Respiratory: No problems Gastrointestinal: No problems Genitourinary: No problems Musculoskeletal: No problems Neurological: No problems Skin: No problems Vital Signs - Temperature Temperature: 97.2 F Temperature Source: Temporal Artery Scan - Pulse Bilateral Sitting Brachial Pulse Rate: 85 - Respirations Respiratory Rate: 16 - Blood Pressure Right Arm Sitting Blood Pressure: 109/60 Blood Pressure Mean: 76 Blood Pressure Source: Automatic Cuff Medical Screen Scoring (Pre) - Cervical Exam Dilation: Exam Deferred Effacement: Exam Deferred Membranes: Intact - Uterine Contractions Frequency: N/A Duration: N/A Intensity: N/A - Maternal Vital Signs Maternal Temperature: N/A Maternal Blood Pressure: N/A Signs of Preeclampsia: N/A Maternal Respirations: N/A - Maternal Trauma Maternal Trauma: N/A - Assessment - Baby A Baseline FHR: 130 Heart Rate - NICHD Category: Category I (Normal) = 0 NST: Reactive Position: N/A Station: N/A - Total Score - Baby A Total Score - Baby A: 0 - Total Score - Baby B Total Score - Baby B: 0 - Total Score - Baby C Total Score - Baby C: 0 - Level of Risk - Baby A Level of Risk - Baby A: Low (0-5) - Level of Risk - Baby B Level of Risk - Baby B: Low (0-5) - Level of Risk - Baby C Level of Risk - Baby C: Low (0-5) Physician Notification (Pre) - Physician Notified Physician Notified Date: 02/28/19 Physician Notified Time: 16:45 Physician/Practitioner Notifed:: Anurag Spoke With: Anurag - Notification Comment Comment: Spmichi c\Dr. Osborn, reviewed lab results, serial BP, report from Ab US pt had earlier today and BPP 01/18. States to d/c home; to follow up with him in the office on Tuesday and to return to [facility] triage on Tuesday for an NST. Disposition - Disposition OB Disposition: Discharge to home, Written follow up instructions reviewed Discharge Date: 02/28/19 Discharge Time: 16:50 I agree with the RN Medical Screening Exam: Yes Risk & Benefit of care provided described in d/c instruction: Yes Diagnosis: GESTATIONAL DIABETES IN , INSULIN CONTROLLED
== END 2019-02-28 16:50 | disposition home or self-care (01) ==
LOC: FBPOP 15:14
PROVIDERS: ATTEND Obstetrics & Gynecology
DX: O24.414 Gestational diabetes mellitus in pregnancy, insulin controlled (principal); Z3A.37 37 weeks gestation of pregnancy
CPT/HCPCS: 76819; 81001; 82565; 82570; 83615; 84156; 84450; 84460; 84520; 84550; 85025

== ENCOUNTER → 2019-02-28 | Outpatient (CLI) | payer OTHER ==
--- NOTE | 2019-02-28 15:25 | US ---
EXAMINATION TYPE: US abdomen complete DATE OF EXAM: 02/28/2019 COMPARISON: CT 07/12/2017 CLINICAL HISTORY: R10.84 Abd pain, R74.8 Elevated LFTS. EXAM MEASUREMENTS: Liver Length: 13.9 cm Gallbladder Wall: Surgically absent CBD: not seen Spleen: 11.7 cm Right Kidney: 11.3 x 5.6 x 4.8 cm Left Kidney: 11.7 x 5.6 x 4.7 cm Patient 37 weeks , technically difficult limited study. Fetus is not evaluated during this ex amination. Some portions were evident during the exam Pancreas: Obscured by bowel gas and uterine size Liver: Limited views due to obstetrical state. Hepatic size appears normal Gallbladder: Surgically absent Evidence for sonographic Seals's sign: no CBD: not visualized due to advanced Spleen: wnl Right Kidney: Minimal right hydronephrosis. No masses seen as visualized, limited views Left Kidney: No hydronephrosis or masses seen as visualized, limited views Upper IVC: wnl Abd Aorta: Obscured by overlying bowel gas IMPRESSION: 1. Minimal right hydronephrosis. 2. Examination limited due to patient's gravid state
== END | disposition home or self-care (01) ==
LOC: RADUSWWP 09:25
PROVIDERS: ATTEND Obstetrics & Gynecology
DX: N13.30 Unspecified hydronephrosis (principal); Z88.0 Allergy status to penicillin
CPT/HCPCS: 76700

== ENCOUNTER 2019-03-03 09:19 | Outpatient (CLI) | payer OTHER ==
[2019-03-03 10:50] VITALS: BP 111/58; PULSE 86; RESP 16; TEMP 98.1
== END 2019-03-03 09:50 | disposition home or self-care (01) ==
LOC: FBPOP 09:19
PROVIDERS: ATTEND Obstetrics & Gynecology
DX: O24.419 Gestational diabetes mellitus in pregnancy, unspecified control (principal)
CPT/HCPCS: 59025; G0463; 99213

== ENCOUNTER 2019-03-05 14:02 | Inpatient (IN) | payer OTHER ==
[2019-03-05 14:20] LABS: Glucose,Whole Blood 79 mg/dL (75-99)
[2019-03-05] MEDS: LACTATED RINGERS 1,000 ML IV SCH ×2 (14:22→21:26)
[2019-03-05] MEDS ORDERED: CITRIC ACID-SODIUM CITRATE 15 ML CUP PO ONE (14:25)
[2019-03-05] MEDS ORDERED: CLINDAMYCIN 600 MG in DEXTROSE 5% IN WATER 50 ML IVPB STA ×2 (14:35)
[2019-03-05 14:46] LABS: Basophils # (A) 0.1 k/uL (0-0.2); Basophils % (A) 1 %; Eosinophils # (A) 0.1 k/uL (0-0.7); Eosinophils % (A) 1 %; HCT 35.6 % (34.0-46.0); Lymphocytes # (A) 2.9 k/uL (1.0-4.8); Lymphocytes % (A) 32 %; MCH 28.5 pg (25.0-35.0); MCHC 33.7 g/dL (31.0-37.0); MCV 84.4 fL (80.0-100.0); Mean Platelet Volume 7.8; Monocytes # (A) 0.3 k/uL (0-1.0); Monocytes % (A) 3 %; Neutrophils # (A) 5.5 k/uL (1.3-7.7); Neutrophils % (A) 61 %; Platelet Count 274 k/uL (150-450); RBC 4.21 m/uL (3.80-5.40); RDW 15.6 % (11.5-15.5)
[2019-03-05 14:59] VITALS: BMI 33.1
[2019-03-05 16:08] LABS: INR 1.1 (<1.2); Partial Thromboplastin Time 27.8 sec (22.0-30.0); Prothrombin Time 11.6 sec (9.0-12.0)
[2019-03-05] MEDS ORDERED: fentaNYL (PF) 50 MCG/ML 2 ML AMP ONE (16:44)
[2019-03-05] MEDS ORDERED: OXYTOCIN 10 UNIT/ML 1 ML VIAL ONE (16:44)
[2019-03-05] MEDS ORDERED: PHENYLEPHRINE-0.9% NACL SYG 1 MG/10 ML SYRINGE ONE (16:44)
[2019-03-05] MEDS ORDERED: ONDANSETRON 4 MG/2 ML VIAL ONE (16:44)
[2019-03-05] MEDS ORDERED: KETOROLAC 30 MG/ML 1 ML VIAL ONE (16:44)
[2019-03-05] MEDS ORDERED: MORPHINE SULFATE (PF) 0.3 MG/0.3 ML SYR ONE (16:44)
[2019-03-05] MEDS ORDERED: DEXAMETHASONE SOD PHOS (MDV) 100 MG/10 ML VIAL ONE (16:44)
[2019-03-05] MEDS ORDERED: diphenhydrAMINE 50 MG/ML 1 ML VIAL IVP PRN ×2 (17:30)
[2019-03-05] MEDS ORDERED: NALOXONE 0.4 MG/ML 1 ML VIAL IV PRN ×2 (17:30→17:44)
[2019-03-05] MEDS ORDERED: diphenhydrAMINE 50 MG CAP PO PRN (17:30)
[2019-03-05] MEDS ORDERED: LACTATED RINGERS 1,000 ML IV SCH (17:30)
[2019-03-05] MEDS ORDERED: KETOROLAC 30 MG/ML 1 ML VIAL IVP PRN (17:30)
[2019-03-05] MEDS ORDERED: ACETAMINOPHEN TAB 325 MG TAB PO PRN (17:30)
[2019-03-05] MEDS ORDERED: METOCLOPRAMIDE 5 MG/ML 2 ML VIAL IVP PRN (17:30)
[2019-03-05] MEDS ORDERED: ONDANSETRON 4 MG/2 ML VIAL IVP PRN (17:30)
[2019-03-05] MEDS ORDERED: diphenhydrAMINE 25 MG CAP PO PRN (17:30)
[2019-03-05] MEDS ORDERED: ZOLPIDEM 5 MG TAB PO PRN (17:30)
--- NOTE | 2019-03-05 17:36 | P.HPOB ---
History of Present Illness H&P Date: 03/05/19 Chief Complaint: Intrauterine at term: Elevated liver labs: Gestat ional diabetes Nohemi is a 29-year-old female who's Precis course has been, complicated by gestational diabetes as well as unknown elevation of liver enzymes. This is been going on now for several weeks and she was seen in conjunction with maternal- medicine for both her gestational diabetes and elevated liver enzymes. We were unable to find a cause for her elevated liver enzymes will consult medicine and general surgery she saw a general surgeon for cholecystectomy while she's in hospital I did discuss with her a gastric neurologist she would prefer to see her general surgeon and if he would like to defer this out and that that spine. Her liver enzymes have been slowly rising and she relates that today the pain is significantly worse in her epigastrium. Blood pressures were all find there is no other signs or symptoms of preeclampsia. Her preeclamptic labs have been normal including some run less than week ago. She does have a history of shoulder dystocia was relatively si gnificant last time as well as multiple pregnancies with retained placenta. She is therefore opting for section for same. She is also having family planning done at the same time. Risks/benefits/alternatives to this procedure were reviewed in. Good detail and all questions were answered for both she and her prior to proceeding to the operating room. A category 1 tracing is noted prior to proceeding to the operating room Past Medical History Past Medical History: Fibromyalgia, GERD/Reflux Additional Past Medical History / Comment(s): Fibromyalgia, chronic pain, 2015 pancreatitis. History of Any Multi-Drug Resistant Organisms: None Reported Past Surgical History: Cholecystectomy Additional Past Surgical History / Comment(s): Dilation and Currettage Past Anesthesia/Blood Transfusion Reactions: No Reported Reaction Past Psychological History: Anxiety Additional Psychological History / Comment(s): Pt resides with her spouse and 5 children under the age of 12 yrs. Pt does not drive, family takes her to [place]. Smoking Status: Former smoker Past Alcohol Use History: None Reported Additional Past Alcohol Use History / Comment(s): Pt started smoking in 2003 and quit in 2014. Past Drug Use History: None Reported - Past Family History Father Family Medical History: Coronary Artery Disease (CAD) Additional Family Medical History / Comment(s): Hx CABG, father 2016 Mother Family Medical History: No Reported History Medications and Allergies Home Medications Medication Instructions Recorded Confirmed Type Pvc-Rnrh-Hbvok Acid 1 cap PO DAILY 09/06/17 03/05/19 History [-U Capsule (formulary)] Insulin NPH [HumuLIN N] 12 unit SQ HS 02/06/19 03/05/19 History RX: metFORMIN HCL 1,000 mg PO BID 02/06/19 03/05/19 History Allergies Allergy/AdvReac Type Severity Reaction Status Date / Time amoxicillin trihydrate AdvReac Abdominal Verified 02/28/19 15:25 [From Augmentin] Pain potassium clavulanate AdvReac Abdominal Verified 02/28/19 15:25 [From Augmentin] Pain tegaderm AdvReac Rash/Hives Uncoded 02/28/19 15:25 Exam Osteopathic Statement: *. No significant issues noted on an osteopathic structural exam other than those noted in the History and Physical/Consult. Vital Signs Temp Pulse Resp BP Pulse Ox 03/05/19 14:53 97.7 F 97 17 121/77 100 Intake and Output 03/05/19 03/05/19 03/05/19 06:59 14:59 22:59 Other: Weight 74.389 kg - OBG Physical Exam Breast: both: normal (no masses) Abdomen: bowel sounds normal, no diffuse tenderness, no bruit present, no guarding noted, no hepatomegaly, no splenomegaly, no mass Vulva: both: normal Vagina: normal moisture, no discharge Cervix: no lesion, no discharge Uterus: normal size, normal contour Adnexa: both: normal Anus/Rectum: normal perianal skin, no rectal mass, no hemorrhoids, heme negative Results Result Diagrams: 03/05/19 14:31 Abnormal Lab Results - Last 24 Hours (Table) 03/05/19 Range/Units 14:31 RDW 15.6 H (11.5-15.5) %
--- NOTE | 2019-03-05 17:39 | P.OP ---
Date of Procedure: 03/05/19 Preoperative Diagnosis: Intrauterine at term: Gestational diabetes: Elevated liver enzymes: Family planning: History of shoulder dystocia Postoperative Diagnosis: Same Procedure(s) Performed: Primary low transverse section with bilateral tubal occlusion Fililya quintanilla Anesthesia: spinal Surgeon: Jim Osborn Seo Consultant #1: Aileen Mg Estimated Blood Loss (ml): 500 IV fluids (ml): 600 Urine output (ml): 75 Pathology: other (Placenta) Condition: stable Disposition: floor Operative Findings: Male scores of 8 and 9 at one and 5 respectively and weight of 6 lbs. 15 oz. Description of Procedure: Nohemi was taken to the operating suite where a spinal anesthetic was found be adequate. She was prepped and draped in normal sterile fashion placed in the dorsal supine position with position with leftward tilt. Initially a Pfannenstiel skin incision was made and this incision was then carried through to underlying layer of the fascia was second knife. Fascia was then nicked in the midline and this opening was extended laterally with Car scissors. Superior and inferior aspect of this incision were then grasped tented up and bluntly and sharply dissected off the rectus muscles. Rectus muscles were then divided the midline and sharp dissection through the peritoneum was done. Once this was accomplished the opening was extended superiorly and inferiorly with good visualization of both bowel bladder. Bladder blade was then placed and vesicouterine peritoneum identified. It was entered sharply with Metzenbaum scissors and this opening was extended across face uterus with Metzenbaum scissors and bladder was only dissected out of the operative field. Knife was then used to incise uterus. This opening was fully developed with hemostat and then extended bluntly. Head was then atraumatically delivered and mouth and nares were bulb suctioned. Shoulders were then delivered without difficulty followed by the remainder the baby. Umbilical cord was clamped cut usual fashion an nursery personnel was present to assume care. Placenta was then delivered intact and Pitocin was added to the IV. Uterus was then exteriorized cleared of clots and debris and closed in 2 layers with 0 Vicryl suture. Once excellent hemostasis was obtained blood and debris was suctioned from the posterior cul-de-sac and uterus was reinserted into the abdomen. Peritoneal layer was then closed with 3-0 Vicryl and the fascia was then closed with 0 Vicryl suture. One layer of 3-0 Vicryl placed in deep subcuticular tissues to reapproximate the skin and close space. Skin was then closed with 3-0 Vicryl subcuticularly. Sponge, lap, needle counts all correct 2. Patient was then taken to the recovery room in stable and satisfactory condition.
[2019-03-05] MEDS ORDERED: MORPHINE SULFATE 2 MG/ML SYRINGE IVP PRN (17:44)
[2019-03-06 01:01] LABS: Hemoglobin A1C 4.8 % (4.0-6.0)
[2019-03-06] MEDS: SENNOSIDES-DOCUSATE SODIUM 1 EACH TAB PO SCH ×3 (01:48→19:37)
[2019-03-06 07:56] LABS: ALT 145 U/L (9-52); AST 78 U/L (14-36)
[2019-03-06 08:22] LABS: Anisocytosis Slight; Basophils # (A) 0.1 k/uL (0-0.2); Basophils % (A) 0 %; Eosinophils % (A) 0 %; HGB 10.4 gm/dL (11.4-16.0); Lymphocytes # (A) 2.7 k/uL (1.0-4.8); Lymphocytes % (A) 19 %; MCH 28.2 pg (25.0-35.0); MCHC 34.6 g/dL (31.0-37.0); MCV 81.4 fL (80.0-100.0); Mean Platelet Volume 7.9; Monocytes # (A) 0.5 k/uL (0-1.0); Monocytes % (A) 4 %; Neutrophils # (A) 10.6 k/uL (1.3-7.7); Neutrophils % (A) 76 %; Platelet Count 288 k/uL (150-450); RBC 3.69 m/uL (3.80-5.40); RDW 16.7 % (11.5-15.5)
--- NOTE | 2019-03-06 09:02 | P.PNOBGPC ---
Subjective - Subjective Principal diagnosis: Post op day 1 Interval history: Nohemi is doing very well this morning. Vital signs are stable and afebrile. Heart regular, lungs clear, extremities without pain. Abdomen soft incision is intact. We'll plan increased ambulation today and showering if she desires. Review of labs reveals a decrease in her liver enzymes. Continue current care Patient reports: Reports appetite normal, Reports voiding normally, Reports pain well controlled, Reports ambulating normally Sims: doing well Objective - Vital Signs Latest vital signs: Vital Signs Temp Pulse Resp BP Pulse Ox 03/06/19 08:15 98.4 F 72 18 132/74 96 03/06/19 06:00 16 97 03/06/19 04:00 98.8 F 107 H 16 115/60 96 03/06/19 02:00 97 03/06/19 00:00 98.7 F 107 H 14 113/66 97 03/05/19 22:44 97 03/05/19 22:00 16 03/05/19 20:44 16 03/05/19 19:40 97.9 F 69 16 117/69 98 03/05/19 19:11 96.8 F L 80 16 117/72 100 03/05/19 18:41 81 16 109/66 98 03/05/19 18:25 73 16 98/62 99 03/05/19 18:11 80 16 127/56 96 03/05/19 17:55 84 16 127/72 96 03/05/19 17:41 98.3 F 83 16 108/66 98 03/05/19 14:53 97.7 F 97 17 121/77 100 Intake and Output 03/05/19 03/06/19 03/06/19 22:59 06:59 14:59 Output Total 600 Balance -600 Output: Urine 600 Uretheral (Merritt) 200 Other: Voiding Method Indwelling Catheter # Voids 0 - Exam Lungs: bilateral: normal Chest: Normal S1, Normal S2 Extremities: Present: normal Abdomen: Present: normal appearance, soft. Absent: distention, tenderness Incision: Present: normal, dry, intact Uterus: Present: normal, firm - Labs Labs: Abnormal Lab Results - Last 24 Hours (Table) 03/05/19 03/06/19 03/06/19 Range/Units 14:31 06:48 06:48 WBC 14.0 H (3.8-10.6) k/uL RBC 3.69 L (3.80-5.40) m/uL Hgb 10.4 L (11.4-16.0) gm/dL Hct 30.0 L (34.0-46.0) % RDW 15.6 H 16.7 H (11.5-15.5) % Neutrophils # 10.6 H (1.3-7.7) k/uL AST 78 H (14-36) U/L ALT 145 H (9-52) U/L
--- NOTE | 2019-03-06 13:27 | P.PN ---
Progress Note - Text 03/06 630 29-year-old female status post with spinal Duramorph for postop pain control. Patient was seen and evaluated this morning for pain control, she has a VAS of1, minimal complaints of nausea vomiting and pruritus. Patient to follow-up with her regular doctor for postop pain management
[2019-03-06] MEDS: IBUPROFEN 600 MG TAB PO PRN ×2 (14:20→19:37)
--- NOTE | 2019-03-06 22:54 | P.CONS ---
History of Present Illness - Reason for Consult Consult date: 03/06/19 Elevated liver enzymes Requesting physician: Jim Osborn - Chief Complaint with tubal ligation - History of Present Illness 29-year-old female with a medical history significant for gestational diabetes who is postop day one after with tubal ligation. Was placed to gastroenterology for elevated liver enzymes. The patient reports elevated liver enzymes for approximately one month. She states that ultrasound of the liver was ordered for evaluation, for was inconclusive secondary to . Patient denies any change in medications and was on metformin and insulin for gestational diabetes. She reports to prior blood transfusions in 2013 after delivery and 2008 after T intensity. No history of elevated liver enzymes or liver disease. No family history of intrinsic liver disease. No history of drinking or alcohol history and . No history of IV drug use. Denies any use of Tylenol. Patient does report right upper quadrant abdominal pain during her which would occur for hours at a time described as dull and achy. The pain would occur after eating or with her up from her sleep. Review of Systems REVIEW OF SYSTEMS: CONSTITUTIONAL: Denies any fevers, chills, weight change or fatigue. CARDIOVASCULAR: Denies any chest pain, palpitations high or low blood pressures RESPIRATORY: Denies any shortness of breath, hemoptysis or cough. GENITOURINARY: No dysuria or hematuria. MUSCULOSKELETAL: No weakness reported. SKIN: Denies any new rashes or lesions, jaundice or pallor. PSYCHIATRIC: Denies any depression or anxiety. NEUROLOGY: Denies headache, denies any new focal deficits. EARS/NOSE/THROAT: No recent hearing change, congestion, nasal discharge or sore throat. EYES: No pain in eyes, discharge or change in vision. GASTROINTESTINAL: As per HPI. Past Medical History Past Medical History: Fibromyalgia, GERD/Reflux Additional Past Medical History / Comment(s): Fibromyalgia, chronic pain, 2015 pancreatitis. History of Any Multi-Drug Resistant Organisms: None Reported Past Surgical History: Cholecystectomy Additional Past Surgical History / Comment(s): Dilation and [place] Past Anesthesia/Blood Transfusion Reactions: No Reported Reaction Past Psychological History: Anxiety Additional Psychological History / Comment(s): Pt resides with her spouse and 5 children under the age of 12 yrs. Pt does not drive, family takes her to [employer]. Smoking Status: Former smoker Past Alcohol Use History: None Reported Additional Past Alcohol Use History / Comment(s): Pt started smoking in 2003 and quit in 2014. Past Drug Use History: None Reported - Past Family History Father Family Medical History: Coronary Artery Disease (CAD) Additional Family Medical History / Comment(s): Hx CABG, father 2016 Mother Family Medical History: No Reported History Medications and Allergies Home Medications Medication Instructions Recorded Confirmed Type Gxq-Ciwi-Rdenw Acid 1 cap PO DAILY 09/06/17 03/05/19 History [-U Capsule (formulary)] Insulin NPH [HumuLIN N] 12 unit SQ HS 02/06/19 03/05/19 History metFORMIN HCL 1,000 mg PO BID 02/06/19 03/05/19 History Allergies Allergy/AdvReac Type Severity Reaction Status Date / Time amoxicillin trihydrate AdvReac Abdominal Verified 02/28/19 15:25 [From Augmentin] Pain potassium clavulanate AdvReac Abdominal Verified 02/28/19 15:25 [From Augmentin] Pain tegaderm AdvReac Rash/Hives Uncoded 02/28/19 15:25 Physical Exam Vitals: Vital Signs Temp Pulse Resp BP Pulse Ox 03/06/19 16:00 98.5 F 72 18 97/63 98 03/06/19 14:00 16 98 03/06/19 12:00 16 03/06/19 10:00 16 99 03/06/19 08:15 98.4 F 72 18 132/74 96 03/06/19 06:00 16 97 03/06/19 04:00 98.8 F 107 H 16 115/60 96 03/06/19 02:00 97 03/06/19 00:00 98.7 F 107 H 14 113/66 97 03/05/19 22:44 97 Intake and Output 03/06/19 03/06/19 03/06/19 06:59 14:59 22:59 Output Total 600 450 350 Balance -600 -450 -350 Output: Urine 600 450 350 Uretheral (Merritt) 200 Other: Voiding Method Indwelling Catheter # Voids 1 1 On physical examination, patient appears comfortable in no apparent distress. HEAD: Normocephalic, atraumatic. EYES: No scleral icterus. No conjunctival injection. MOUTH: No lesions, tongue midline. NECK: Trachea midline, no gross abnormalities. CHEST: Clear to auscultation with no wheezing or rhonchi appreciated. HEART: Regular rate and rhythm. ABDOMEN: Soft, appropriately tender. Bowel sounds are positive. No organomegaly. No guarding or rigidity. EXTREMITIES: No pedal edema. SKIN: No rashes, no jaundice. NEUROLOGIC: Alert and oriented x3. No focal deficits. Results CBC & Chem 7: 03/06/19 06:48 Labs: Abnormal Lab Results - Last 24 Hours (Table) 03/06/19 03/06/19 Range/Units 06:48 06:48 WBC 14.0 H (3.8-10.6) k/uL RBC 3.69 L (3.80-5.40) m/uL Hgb 10.4 L (11.4-16.0) gm/dL Hct 30.0 L (34.0-46.0) % RDW 16.7 H (11.5-15.5) % Neutrophils # 10.6 H (1.3-7.7) k/uL AST 78 H (14-36) U/L ALT 145 H (9-52) U/L Assessment and Plan (1) Elevated liver enzymes Narrative/Plan: 29-year-old female who is after with tubal ligation yesterday. Consult placed for elevated liver enzymes. Patient significant risk factors, history of liver disease, or family history of intrinsic liver disease. Unknown etiology, with pattern predominantly hepatocellular with total bilirubin 0.6, alkaline phosphatase 134, AST 78 and MALT 145. Full serology will be ordered to rule out intrinsic liver disease, with suspicion for fatty liver in the setting of metabolic syndrome. Current Visit: Yes Status: Acute Code(s): R74.8 - ABNORMAL LEVELS OF OTHER SERUM ENZYMES SNOMED Code(s): 230347461 Plan: Supportive care Okay for diet Avoid hepatotoxic drugs Full liver serologies ordered Ultrasound abdomen ordered Okay for discharge from gastroenterology, with follow-up in the GI clinic in 2-3 weeks with repeat liver enzymes at that time Thank you for allowing us to speak in the care of the patient
[2019-03-07] MEDS: IBUPROFEN 600 MG TAB PO PRN ×3 (04:43→16:58)
[2019-03-07 06:38] LABS: Albumin 2.5 g/dL (3.5-5.0); Bilirubin, Delta 0.2 mg/dL (0.0-0.2); Bilirubin,Unconjugated 0.1 mg/dL (0.0-1.1); Total Bilirubin 0.3 mg/dL (0.2-1.3); Total Protein 5.2 g/dL (6.3-8.2)
--- NOTE | 2019-03-07 08:13 | P.DS ---
Providers Date of admission: 03/05/19 14:02 Expected date of discharge: 03/07/19 Attending physician: Jim Osborn Primary care physician: Stated None Hospital Course: Nohemi is doing very well postop day 2. She is involuting, voiding tolerating her diet. She voices no complaints. Ultrasound of her liver has been ordered and is pending. Liver enzymes have again declined. We'll await any further GI recommendation, but at this time she seems stable for discharge and the risk is requesting same. Discharge instructions were thoroughly reviewed and all questions were answered prior to her discharge. She is where to have no heavy lifting, limit stairs and driving, and pelvic rest. If prescribed for Vicoprofen was provided as that is left less liver toxicity then [place] should be and will therefore have her take one of these tablets every 6 hours as needed for pain for the next few days. Prescription for a breast pump was also provided. All the questions were answered for her. On physical exam heart was regular, lungs clear, extremities without pain. Abdomen is soft incision is clean dry and intact and she does have positive bowel sounds. Assessment postop day 2. Plan discharged home follow up with me in 1 week. She is aware and is reminded that at 6 weeks she should have a 2 her Glucola screening due to her history of gestational diabetes and risk for diabetes in the future Patient Condition at Discharge: Good Plan - Discharge Summary New Discharge Prescriptions: New HYDROcodone/IBUPROFEN 7.5-200 [Vicoprofen 7.5-200 mg] 1 tab PO Q6HR PRN 3 Days #12 tab PRN Reason: Pain No Action Coa-Znet-Cjhui Acid [-U Capsule (formulary)] 1 cap PO DAILY metFORMIN HCL 1,000 mg PO BID Insulin NPH [HumuLIN N] 12 unit SQ HS Discharge Medication List Gnw-Asqj-Bkmnm Acid [-U Capsule (formulary)] 1 cap PO DAILY 09/06/17 [History] Insulin NPH [HumuLIN N] 12 unit SQ HS 02/06/19 [History] metFORMIN HCL 1,000 mg PO BID 02/06/19 [History] HYDROcodone/IBUPROFEN 7.5-200 [Vicoprofen 7.5-200 mg] 1 tab PO Q6HR PRN 3 Days #12 tab 03/07/19 [Rx] Follow up Appointment(s)/Referral(s): Jim Osborn DO [Doctor of Osteopathic Medicine] - 1 Week Activity/Diet/Wound Care/Special Instructions: No heavy lifting, limit stairs and driving, and pelvic rest if any high temperatures, heavy bleeding, or severe pain call my office. She is not to take any extra Motrin with her Vicoprofen as they contain the same medication Discharge Disposition: HOME SELF-CARE
[2019-03-07] MEDS: SENNOSIDES-DOCUSATE SODIUM 1 EACH TAB PO SCH (10:18)
[2019-03-07 11:55] LABS: Ferritin 11.7 ng/mL (10.0-291.0); Iron Saturation 4.64 (12.00-45.00)
[2019-03-07 12:02] LABS: Hepatitis A Antibody IgM Non-Reactive (Non-Reactive); Hepatitis B Core IgM Non-Reactive (Non-Reactive); Hepatitis B Surface Antigen Non-Reactive (Non-Reactive); Hepatitis C IgG Antibody Non-Reactive (Non-Reactive)
[2019-03-07 12:07] LABS: Gliadin AB IgA, Deaminated NEGATIVE (NEGATIVE); Gliadin AB IgA, Unit 1.2 U/mL; Gliadin AB IgG, Deaminated NEGATIVE (NEGATIVE)
[2019-03-07 12:21] LABS: Protein, Total 4.6 g/dL (6.2-8.2)
[2019-03-07 12:35] LABS: Ceruloplasmin 42.3 mg/dL (20.0-60.0)
--- NOTE | 2019-03-07 15:48 | US ---
EXAMINATION TYPE: US abdomen complete DATE OF EXAM: 03/07/2019 COMPARISON: Ultrasound abdomen 1 week prior CLINICAL HISTORY: Abdominal pain. Elevated liver enzymes, cholecystectomy EXAM MEASUREMENTS: Liver Length: 18.0 cm Gallbladder Wall: Surgically absent CBD: 0.4 cm Spleen: 12.8 cm Right Kidney: 9.9 x 3.5 x 4.4 cm Left Kidney: 11.0 x 5.0 x 5.0 cm Pancreas: appears wnl Liver: wnl Gallbladder: Surgically absent Evidence for sonographic Seals's sign: no CBD: appears wnl Spleen: wnl Right Kidney: no evidence of hydronephrosis Left Kidney: no evidence of hydronephrosis Upper IVC: wnl Abd Aorta: wnl There is no ascites. Cortical medullary differentiation is maintained within the kidneys. IMPRESSION: Postop change.
[2019-03-07 16:37] VITALS: BP 115/67; PULSE 87; RESP 18; TEMP 98.2
[2019-03-08 11:56] LABS: Liver/Kidney Microsome Antibod 1.3 UNITS (<=20)
[2019-03-08 12:22] LABS: Albumin 2.34 g/dL (3.80-4.90); Gamma Globulin 0.68 g/dL (0.70-1.50)
== END 2019-03-07 17:14 | disposition home or self-care (01) | DRG 785 ==
LOC: 4FBP 14:02
PROVIDERS: ADMIT Obstetrics & Gynecology; ATTEND Obstetrics & Gynecology
PROC: 0UL70CZ Occlusion of Bilateral Fallopian Tubes with Extraluminal Device, Open Approach (ICD-10-PCS; 2019-03-05)
PROC: 10D00Z1 Extraction of Products of Conception, Low, Open Approach (ICD-10-PCS; principal; 2019-03-05 16:30)
DX: O24.424 Gestational diabetes mellitus in childbirth, insulin controlled (principal); O99.344 Other mental disorders complicating childbirth; F41.9 Anxiety disorder, unspecified; O99.62 Diseases of the digestive system complicating childbirth; K21.9 Gastro-esophageal reflux disease without esophagitis; M79.7 Fibromyalgia; Z37.0 Single live birth; Z82.49 Family history of ischemic heart disease and other diseases of the circulatory system; Z87.891 Personal history of nicotine dependence; O09.293 Supervision of pregnancy with other poor reproductive or obstetric history, third trimester; G89.29 Other chronic pain; Z88.0 Allergy status to penicillin; Z88.8 Allergy status to other drugs, medicaments and biological substances; R94.5 Abnormal results of liver function studies; Z30.2 Encounter for sterilization
CPT/HCPCS: 76700; 80074; 80076; 82103; 82390; 82728; 83036; 83516; 83540; 83550; 84165; 84450; 84460; 85025; 85610; 85730; 86038; 86376; 86850; 86900; 86901; 88307

== ENCOUNTER → 2019-08-17 | Outpatient (CLI) | payer OTHER ==
--- NOTE | 2019-08-17 20:20 | CT ---
EXAMINATION TYPE: CT abdomen pelvis w con DATE OF EXAM: 08/17/2019 COMPARISON: 07/12/2017 INDICATION: stomach pain nausea diarrhea for 1 week DLP: 1245 mGycm, Automated exposure control for dose reduction was used. CONTRAST: 100 mL of Isovue 300. Study performed with Oral Contrast TECHNIQUE: Axial images were obtained from above the diaphragm to the pubic rami in the axial plane a t 5 mm thick sections. Reconstructed images are reviewed on the computer in the coronal plane. FINDINGS: Limited CT sections are obtained the lung bases. The lung bases are clear. CT ABDOMEN: Liver: Normal Spleen: Normal Pancreas: Normal Adrenal glands: The adrenal glands are normal. Gallbladder: Surgically absent Kidneys: No masses are evident. No hydronephrosis is present. No cysts are present. Delayed images were obtained through the kidneys, which remain unremarkable. Aorta: Normal Inferior vena cava: Normal. CT PELVIS: Loops of bowel within the abdomen and pelvis are normal. There are loops of bowel which are incom pletely distended or lack oral contrast limiting their evaluation. Oral contrast extends to the colon . Appendix: Not identified. No suspicious tubular structure or inflammatory changes evident. Urinary bladder: Normal. Genitourinary structures: Uterus is normal. Adnexal regions appear within normal limits. A cyst is pr esent on the left ovary measuring 1.3 cm. Osseous structures: No suspicious lytic or sclerotic lesions. IMPRESSIONS: 1. No obstruction evident. 2. Small left ovarian cyst
== END | disposition home or self-care (01) ==
LOC: RADCTMAIN 13:30
PROVIDERS: ATTEND Family Medicine
DX: N83.202 Unspecified ovarian cyst, left side (principal); Z74.8 Other problems related to care provider dependency
CPT/HCPCS: 74177; Q9967

== ENCOUNTER 2020-11-25 06:41 | Day surgery (SDC) | payer OTHER ==
[2020-10-30 12:02] VITALS: BMI 32.5
[~2020-11-25 06:41] MED LIST: LACTATED RINGERS 1,000 ML IV SCH; LIDOCAINE 1% (10MG/ML) FOR IV START INTRADERMA PRN
[2020-11-25 07:18] VITALS: TEMP 97.1
[2020-11-25 07:32] LABS: Glucose,Whole Blood 103 mg/dL (75-99)
[2020-11-25] MEDS ORDERED: fentaNYL (PF) 50 MCG/ML 2 ML AMP ONE (07:38)
[2020-11-25] MEDS ORDERED: MIDAZOLAM 2 MG/2 ML VIAL ONE (07:38)
[2020-11-25] MEDS ORDERED: PROPOFOL 10 MG/ML 20 ML VIAL IV ONE (07:38)
[2020-11-25] MEDS ORDERED: LIDOCAINE 1% INJ 10MG/ML (20 ML MDV) ONE (07:38)
--- NOTE | 2020-11-25 08:15 | P.PCN ---
Date of Procedure: 11/25/20 Description of Procedure: BRIEF HISTORY: Patient is a 30-year-old female presenting for evaluation of IBS with diarrhea, abdominal pain, change in bowel habits. Patient has long-standing history of altered bowel function. She reports intermittent diarrhea and constipation. She reports abdominal pain and cramping. No prior colonoscopy. No family history of colon cancer or IBD. PROCEDURE PERFORMED: Colonoscopy with biopsy. PREOPERATIVE DIAGNOSIS: IBS with diarrhea, abdominal pain, change in bowel habits, no prior colonoscopy. ESTIMATED BLOOD LOSS: Minimal. IV sedation per Anesthesia. PROCEDURE: After informed consent was obtained, the patient, was brought into the endoscopy unit. IV sedation was administered by Anesthesia under continuous monitoring. Digital rectal examination was normal. Initially the Olympus CF-190 flexible video colonoscope was then inserted in the rectum, gradually advanced into the cecum without any difficulty. Careful examination was performed as the scope was gradually being withdrawn. Ileocecal valve and the appendiceal orifice were visualized and appeared normal. Prep was excellent. Mucosa of the cecum, ascending colon, transverse colon, descending colon, sigmoid colon, and rectum appeared normal and biopsies of the right left colon. The terminal ileum was intubated and appeared normal and biopsied. Retroflexion was performed in the rectum and no lesions were seen, low-grade internal hemorrhoids were noted. The patient tolerated the procedure well. IMPRESSION: Normal-appearing colon from rectum to cecum and normal-appearing terminal ileum with random biopsies taken of the right colon, left colon and terminal ileum. Internal hemorrhoids. RECOMMENDATIONS: Findings of this examination were discussed with the patient and her family. Okay to resume diet. Okay to resume medications. Await pathology from biopsies. Continue current medical regimen.
[2020-11-25 08:30] VITALS: BP 107/75; PULSE 67; RESP 16
== END 2020-11-25 09:14 | disposition home or self-care (01) ==
LOC: ORWHC2ENDO 06:41
PROVIDERS: ATTEND Internal Medicine
DX: K58.0 Irritable bowel syndrome with diarrhea (principal); R10.9 Unspecified abdominal pain; R73.03 Prediabetes; M79.7 Fibromyalgia; R19.4 Change in bowel habit; Z88.1 Allergy status to other antibiotic agents; Z88.0 Allergy status to penicillin; F31.9 Bipolar disorder, unspecified; Z88.8 Allergy status to other drugs, medicaments and biological substances; Z79.899 Other long term (current) drug therapy
CPT/HCPCS: 81025; 88305; 45380; J2250; J2001; J3010; J2704

== ENCOUNTER → 2020-12-15 | Outpatient (CLI) | payer OTHER ==
--- NOTE | 2020-12-15 14:14 | US ---
EXAMINATION TYPE: US pelvic complete DATE OF EXAM: 12/15/2020 COMPARISON: CT abdomen 08/17/2019 10/05/2024 ultrasound CLINICAL HISTORY: R10.2 pelvic pain, N93.8 Dysfunctional uterine ble. Pt states passing clots during menses TECHNIQUE: Transabdominal (TA). Transabdominal sonographic images of the pelvis were acquired. Date of LMP: 11/26/2020 EXAM MEASUREMENTS: Uterus: 9.0 x 4.3 x 5.3 cm Endometrial Stripe: 1.4 cm Right Ovary: 2.6 x 1.6 x 2.5 cm Left Ovary: 2.3 x 1.8 x 1.9 cm 1. Uterus: Anteverted Heterogeneous with visible scar 2. Endometrium: Upper limits of normal for cycle 3. Right Ovary: wnl 4. Left Ovary: wnl 5. Bilateral Adnexa: wnl 6. Posterior cul-de-sac: wnl IMPRESSION: 1. The endometrial stripe measures 1.4 cm, which is within normal limits for menstruating female.
== END | disposition home or self-care (01) ==
LOC: RADUSWWP 13:42
PROVIDERS: ATTEND Obstetrics & Gynecology
DX: N93.8 Other specified abnormal uterine and vaginal bleeding (principal); R10.2 Pelvic and perineal pain
CPT/HCPCS: 76856

== ENCOUNTER 2021-03-23 16:00 | Emergency (ER) | payer OTHER ==
[2021-03-23 17:39] VITALS: BP 110/78; PULSE 92; RESP 18; TEMP 98.2
--- NOTE | 2021-03-23 18:29 | XR ---
EXAMINATION TYPE: XR ankle complete LT DATE OF EXAM: 03/23/2021 COMPARISON: NONE HISTORY: Pain FINDINGS: Three views of the ankle demonstrate the ankle mortise to be intact and symmetric. The joint spaces are preserved. The osseous structures are intact. Extensive swelling laterally. IMPRESSION: 1. No definite acute fracture or dislocation, if symptoms persist follow-up study in 7 to 10 days wou ld be suggested. Soft tissue swelling laterally.
== END 2021-03-23 21:15 | disposition left against medical advice (07) ==
LOC: EC 16:00
DX: M25.572 Pain in left ankle and joints of left foot (principal)
CPT/HCPCS: 99499

== ENCOUNTER 2021-09-30 09:41 | Emergency (ER) | payer OTHER ==
[2021-09-30 09:47] VITALS: BP 106/61; PULSE 78; RESP 16; TEMP 98.3
[2021-09-30] MEDS ORDERED: HYDROcodone/APAP 5-325MG 1 EACH TAB PO STA (10:03)
[2021-09-30] MEDS ORDERED: CYCLOBENZAPRINE 5 MG TAB PO STA (10:03)
--- NOTE | 2021-09-30 10:27 | XR ---
EXAMINATION TYPE: XR lumbosacral spine min 4V DATE OF EXAM: 09/30/2021 CLINICAL HISTORY: pain COMPARISON: NONE TECHNIQUE: Frontal, lateral, and oblique images of the lumbar spine are obtained. FINDINGS: There are 5 lumbar type vertebral bodies identified. The lumbar spine shows satisfactory alignment without evidence of acute fracture or dislocation. Vertebral body heights are within normal limits. Disc spaces are well preserved. The overlying soft tissue appears unremarkable. IMPRESSION: No acute fracture or dislocation is seen in the lumbar spine.ICD 10 NO FRACTURE, INITIAL EVALUATION
[2021-09-30] MEDS ORDERED: ACET/COD 300 MG/30 MG STARTER PACK 6 TAB BTL PO STA (11:21)
--- NOTE | 2021-09-30 11:22 | ED ---
Back Pain HPI - General Chief Complaint: Back Pain/Injury Stated Complaint: back pain Time Seen by Provider: 09/30/21 09:51 Source: patient, RN notes reviewed Mode of arrival: ambulatory Limitations: no limitations - History of Present Illness Initial Comments: This a 31-year-old female presents emergency Department complaining of low back pain 2 weeks. Patient states that she had no known injury but states started having low back pain areas on her left leg to her knee. She states is very painful to move denies any bowel, bladder incontinence or retention. Patient has no saddle anesthesia. Patient states she has no history of back surgery no abdominal pain. Patient offers no other complaints. - Related Data Home Medications Medication Instructions Recorded Confirmed FLUoxetine HCL [PROzac] 40 mg PO 1200 10/30/20 11/25/20 Fish Oil(Dose Unknown) 1 tab PO DAILY 10/30/20 11/25/20 [place] Carbonate [[place] 450 mg PO 199910/30/20 11/25/20 Carbonate ER] Atomoxetine HCl [Strattera] 10 mg PO QAM 11/24/20 11/25/20 Ergocalciferol [Vitamin D2 (1250 1,250 mcg PO WE 11/24/20 11/25/20 Mcg = 13667 Iu)] Previous Rx's Medication Instructions Recorded Cyclobenzaprine [Flexeril] 10 mg PO TID PRN #15 tab 09/30/21 predniSONE 50 mg PO DAILY #5 tab 09/30/21 Allergies Allergy/AdvReac Type Severity Reaction Status Date / Time wheat Allergy Abdominal Verified 09/30/21 09:42 Pain/hives amoxicillin trihydrate AdvReac Abdominal Verified 09/30/21 09:42 [From Augmentin] Pain eszopiclone [From Lunesta] AdvReac Confusion Verified 09/30/21 09:42 potassium clavulanate AdvReac Abdominal Verified 09/30/21 09:42 [From Augmentin] Pain tegaderm AdvReac Rash/Hives Uncoded 09/30/21 09:42 Review of Systems ROS Statement: Those systems with pertinent positive or pertinent negative responses have been documented in the HPI. ROS Other: All systems not noted in ROS Statement are negative. Past Medical History Past Medical History: Fibromyalgia, GERD/Reflux, Skin Disorder Additional Past Medical History / Comment(s): hx bowel obstruction(self resolved) pancreatitis. migraines, hx gestational diabetic, nausea/constipation/diarrhea/severe stomach cramps, "food sensitivities", eczema-dry skin, "borderline diabetic"-diet control, elevated triglycerides, frequent UTI's History of Any Multi-Drug Resistant Organisms: None Reported Past Surgical History: Section, Cholecystectomy Additional Past Surgical History / Comment(s): Dilation and Currettage Past Anesthesia/Blood Transfusion Reactions: Motion Sickness Past Psychological History: Bipolar Smoking Status: Former smoker, Vaper Past Alcohol Use History: None Reported Past Drug Use History: None Reported - Past Family History Father Additional Family Medical History / Comment(s): Hx CABG, father 2016 Mother Family Medical History: No Reported History General Exam Limitations: no limitations General appearance: alert, in no apparent distress Head exam: Present: atraumatic, normocephalic, normal inspection Neck exam: Present: normal inspection. Absent: tenderness, meningismus, lymphadenopathy Respiratory exam: Present: normal lung sounds bilaterally. Absent: respiratory distress, wheezes, rales, rhonchi, stridor Cardiovascular Exam: Present: regular rate, normal rhythm, normal heart sounds. Absent: systolic murmur, diastolic murmur, rubs, gallop, clicks GI/Abdominal exam: Present: soft, normal bowel sounds. Absent: distended, tenderness, guarding, rebound, rigid Extremities exam: Present: other (Lower extremity strength equal bilaterally neurovascular intact, normal color and warmth) Back exam: Present: tenderness, paraspinal tenderness. Absent: full ROM, vertebral tenderness Neurological exam: Present: alert, oriented X3, reflexes normal. Absent: motor sensory deficit Skin exam: Present: warm, dry, intact, normal color. Absent: rash Course Vital Signs 09/30/21 09:43 Temperature 98.3 F Pulse Rate 78 Respiratory 16 Rate Blood Pressure 106/61 O2 Sat by Pulse 100 Oximetry Medical Decision Making - Medical Decision Making 31-year-old presented for low back pain. Patient has no red flag symptoms. Patient we started on prednisone, pain relief will be follow-up with on-call orthopedics return parameters were discussed. Disposition Clinical Impression: Lumbar radiculopathy Disposition: HOME SELF-CARE Condition: Stable Instructions (If sedation given, give patient instructions): Acute Low Back Pain (ED) Additional Instructions: Please return to the Emergency Department if symptoms worsen or any other concerns. Prescriptions: Cyclobenzaprine [Flexeril] 10 mg PO TID PRN #15 tab PRN Reason: Muscle Spasm predniSONE 50 mg PO DAILY #5 tab Is patient prescribed a controlled substance at d/c from ED?: No Referrals: Chyna Beltran DO [Primary Care Provider] - 1-2 days Levi Logan DO [Doctor of Osteopathic Medicine] - 1-2 days Time of Disposition: 11:21
== END 2021-09-30 11:33 | disposition home or self-care (01) ==
LOC: EC 09:41
DX: M54.16 Radiculopathy, lumbar region (principal); Z87.891 Personal history of nicotine dependence; Z91.018 Allergy to other foods; Z88.0 Allergy status to penicillin; Z88.8 Allergy status to other drugs, medicaments and biological substances; Z91.048 Other nonmedicinal substance allergy status
CPT/HCPCS: 72110; 99283

== ENCOUNTER 2022-02-12 21:37 | Emergency (ER) | payer OTHER ==
[2022-02-12 22:02] VITALS: BP 117/74; PULSE 71; RESP 18; TEMP 98
[2022-02-13] MEDS ORDERED: GELATIN SPONGE,ABSORB (SMALL) 1 EACH SPONGE TOPICAL STA (01:26)
[2022-02-13] MEDS ORDERED: DIPH,PERTUS(ACELL)TETVAC-LF 0.5 ML VIAL IM ONE (01:26)
--- NOTE | 2022-02-13 01:38 | ED ---
Wound/Laceration HPI - General Chief Complaint: Wound/Laceration Stated Complaint: IHS-L finger lac Time Seen by Provider: 02/13/22 01:12 Source: patient, RN notes reviewed Mode of arrival: ambulatory - History of Present Illness Initial Comments: This is a 32-year-old female who presents to the emergency department for a laceration to the left middle finger. States that at work, she accidentally cut the tip with a knife. She is worried about the bleeding but states that it is very superficial. Unsure when her last tetanus vaccine was. Denies any fevers, chills, sore throat, cough, dyspnea, chest pain, palpitations, abdominal pain, nausea, vomiting, diarrhea, back pain, or headaches. Location: other (left middle finger) Place: work Patient Tetanus UTD: No Context: accidental Treatments Prior to Arrival: bandage - Related Data Home Medications Medication Instructions Recorded Confirmed FLUoxetine HCL [PROzac] 40 mg PO 1200 10/30/20 11/25/20 Fish Oil(Dose Unknown) 1 tab PO DAILY 10/30/20 11/25/20 [place] Carbonate [[place] 450 mg PO 199910/30/20 11/25/20 Carbonate ER] Atomoxetine HCl [Strattera] 10 mg PO QAM 11/24/20 11/25/20 Ergocalciferol [Vitamin D2 (1250 1,250 mcg PO WE 11/24/20 11/25/20 Mcg = 36483 Iu)] Previous Rx's Medication Instructions Recorded Cyclobenzaprine [Flexeril] 10 mg PO TID PRN #15 tab 09/30/21 predniSONE 50 mg PO DAILY #5 tab 09/30/21 Allergies Allergy/AdvReac Type Severity Reaction Status Date / Time wheat Allergy Abdominal Verified 02/12/22 22:03 Pain/hives amoxicillin trihydrate AdvReac Abdominal Verified 02/12/22 22:03 [From Augmentin] Pain eszopiclone [From Lunesta] AdvReac Confusion Verified 02/12/22 22:03 potassium clavulanate AdvReac Abdominal Verified 02/12/22 22:03 [From Augmentin] Pain tegaderm AdvReac Rash/Hives Uncoded 09/30/21 09:42 Review of Systems ROS Statement: Those systems with pertinent positive or pertinent negative responses have been documented in the HPI. ROS Other: All systems not noted in ROS Statement are negative. Past Medical History Past Medical History: Fibromyalgia, GERD/Reflux, Skin Disorder Additional Past Medical History / Comment(s): hx bowel obstruction(self resolved) pancreatitis. migraines, hx gestational diabetic, nausea/constipation/diarrhea/severe stomach cramps, "food sensitivities", eczema-dry skin, "borderline diabetic"-diet control, elevated triglycerides, frequent UTI's History of Any Multi-Drug Resistant Organisms: None Reported Past Surgical History: Section, Cholecystectomy Additional Past Surgical History / Comment(s): Dilation and Currettage Past Anesthesia/Blood Transfusion Reactions: Motion Sickness Past Psychological History: Bipolar Smoking Status: Former smoker, Vaper Past Alcohol Use History: None Reported Past Drug Use History: None Reported - Past Family History Father Additional Family Medical History / Comment(s): Hx CABG, father 2016 Mother Family Medical History: No Reported History General Exam General appearance: alert, in no apparent distress Head exam: Present: atraumatic, normocephalic, normal inspection Respiratory exam: Present: normal lung sounds bilaterally. Absent: respiratory distress, wheezes, rales, rhonchi, stridor Cardiovascular Exam: Present: regular rate, normal rhythm, normal heart sounds. Absent: systolic murmur, diastolic murmur, rubs, gallop, clicks Neurological exam: Present: alert, oriented X3, CN II-XII intact Psychiatric exam: Present: normal affect, normal mood Skin exam: Present: other (Skin tear to the left middle finger bed. No penetration into the dermis. Minor active bleeding.) Course Vital Signs 02/12/22 21:59 Temperature 98.0 F Pulse Rate 71 Respiratory 18 Rate Blood Pressure 117/74 O2 Sat by Pulse 95 Oximetry Medical Decision Making - Medical Decision Making This is a 32-year-old female who presents emergency department for an injury to the left middle finger. This is a very superficial skin tear. This was covered with Gelfoam to help with hemostasis and bandaged. Patient's tetanus status was updated. Advised ibuprofen and Tylenol as needed for pain relief. Return precautions reviewed in depth, the patient is instructed to return to the emergency department with any new, worsening, or concerning symptoms. Patient verbalized understanding. This case was discussed in detail with the attending ED physician. Presentation, findings, and treatment plan discussed in detail as well. Disposition Clinical Impression: Skin tear Disposition: HOME SELF-CARE Instructions (If sedation given, give patient instructions): Skin Tear (ED) Additional Instructions: Return to the emergency department with any new, worsening, or concerning symptoms. Keep the area clean and covered at work. Take ibuprofen and Tylenol as needed for pain relief. Is patient prescribed a controlled substance at d/c from ED?: No Referrals: Chyna Beltran DO [Primary Care Provider] - 1-2 days
== END 2022-02-13 02:28 | disposition home or self-care (01) ==
LOC: EC 21:37
DX: S61.213A Laceration without foreign body of left middle finger without damage to nail, initial encounter (principal); K21.9 Gastro-esophageal reflux disease without esophagitis; Z87.891 Personal history of nicotine dependence; Z79.899 Other long term (current) drug therapy; Z91.018 Allergy to other foods; Z88.0 Allergy status to penicillin; Z88.8 Allergy status to other drugs, medicaments and biological substances; Z23 Encounter for immunization; Y99.0 Civilian activity done for income or pay; Y92.69 Other specified industrial and construction area as the place of occurrence of the external cause; W26.0XXA Contact with knife, initial encounter
CPT/HCPCS: 90471; 90715; 99282

== ENCOUNTER 2022-03-09 11:32 | Emergency (ER) | payer OTHER ==
--- NOTE | 2022-03-09 12:59 | XR ---
EXAMINATION TYPE: XR chest 2V DATE OF EXAM: 03/09/2022 COMPARISON: 06/27/2011 HISTORY: Chest pain TECHNIQUE: Single frontal view of the chest is obtained. FINDINGS: There is no focal air space opacity, pleural effusion, or pneumothorax seen. The cardiac silhouette size is within normal limits. The osseous structures are intact. IMPRESSION: 1. No acute process.
[2022-03-09 13:56] LABS: Basophils % (A) 0 %; Eosinophils # (A) 0.3 k/uL (0-0.7); Eosinophils % (A) 4 %; HCT 35.4 % (34.0-46.0); Lymphocytes # (A) 2.4 k/uL (1.0-4.8); Lymphocytes % (A) 32 %; MCH 27.8 pg (25.0-35.0); MCHC 33.8 g/dL (31.0-37.0); MCV 82.3 fL (80.0-100.0); Mean Platelet Volume 7.8; Monocytes # (A) 0.3 k/uL (0-1.0); Monocytes % (A) 4 %; Neutrophils # (A) 4.3 k/uL (1.3-7.7); Neutrophils % (A) 57 %; Platelet Count 324 k/uL (150-450); RDW 13.8 % (11.5-15.5); WBC 7.5 k/uL (3.8-10.6)
[2022-03-09 14:05] LABS: ALT 26 U/L (4-34); AST 24 U/L (14-36); African American GFR (CKD) >90 (>60 ml/min/1.73 sqM); Albumin 4.3 g/dL (3.5-5.0); Alkaline Phosphatase 81 U/L (38-126); Anion Gap 14 mmol/L; Blood Urea Nitrogen 7 mg/dL (7-17); Calcium 9.2 mg/dL (8.4-10.2); Carbon Dioxide 20 mmol/L (22-30); Chloride 105 mmol/L (98-107); Glucose 117 mg/dL (74-99); Non-African American GFR(CKD) >90 (>60 ml/min/1.73 sqM); Potassium 3.8 mmol/L (3.5-5.1); Sodium 139 mmol/L (137-145); Total Bilirubin <0.1 mg/dL (0.2-1.3)
[2022-03-09 14:22] LABS: Partial Thromboplastin Time 29.4 sec (22.0-30.0); Prothrombin Time 11.3 sec (9.0-12.0)
--- NOTE | 2022-03-09 16:00 | ED ---
Syncope HPI - General Chief Complaint: Syncope Stated Complaint: syncopal episode Time Seen by Provider: 03/09/22 14:53 Source: patient Mode of arrival: ambulatory Limitations: no limitations - History of Present Illness Initial Comments: This patient is a 32-year-old woman who presents here to have evaluation after syncopal episode. The patient states that she was at the neurology clinic and that she was having an EEG performed. She states that when the flashing lights started she passed out. Patient does not believe she at any tonic-clonic move ments. She was not told that she had a seizure by the neurologist there. She was sent over for further evaluation. The patient states that she feels back to baseline. She denies any injury or pain. MD Complaint: loss of consciousness Onset/Timin -: hour(s) Prodromal Symptoms: lightheaded -: second(s) Witnessed: yes - by bystander Injuries Sustained Associated with Event: None Current Symptoms: back to baseline History: seizure disorder Context: other Treatments Prior to Arrival: none - Related Data Home Medications Medication Instructions Recorded Confirmed FLUoxetine HCL [PROzac] 40 mg PO 1200 10/30/20 11/25/20 Fish Oil(Dose Unknown) 1 tab PO DAILY 10/30/20 11/25/20 [place] Carbonate [[place] 450 mg PO 199910/30/20 11/25/20 Carbonate ER] Atomoxetine HCl [Strattera] 10 mg PO QAM 11/24/20 11/25/20 Ergocalciferol [Vitamin D2 (1250 1,250 mcg PO WE 11/24/20 11/25/20 Mcg = 65462 Iu)] Previous Rx's Medication Instructions Recorded Cyclobenzaprine [Flexeril] 10 mg PO TID PRN #15 tab 09/30/21 predniSONE 50 mg PO DAILY #5 tab 09/30/21 Allergies Allergy/AdvReac Type Severity Reaction Status Date / Time wheat Allergy Abdominal Verified 03/09/22 12:25 Pain/hives amoxicillin trihydrate AdvReac Abdominal Verified 03/09/22 12:25 [From Augmentin] Pain eszopiclone [From Lunesta] AdvReac Confusion Verified 03/09/22 12:25 potassium clavulanate AdvReac Abdominal Verified 03/09/22 12:25 [From Augmentin] Pain tegaderm AdvReac Rash/Hives Uncoded 03/09/22 12:25 Review of Systems ROS Statement: Those systems with pertinent positive or pertinent negative responses have been documented in the HPI. ROS Other: All systems not noted in ROS Statement are negative. Constitutional: Denies: fever, chills, weakness Eyes: Denies: vision change Respiratory: Denies: cough, dyspnea Cardiovascular: Reports: syncope. Denies: chest pain, palpitations, edema Gastrointestinal: Denies: abdominal pain, nausea, vomiting, diarrhea Genitourinary: Denies: dysuria Musculoskeletal: Denies: back pain Skin: Denies: rash Neurological: Denies: headache, weakness, numbness, confusion Past Medical History Past Medical History: Fibromyalgia, GERD/Reflux, Skin Disorder Additional Past Medical History / Comment(s): hx bowel obstruction(self resolved) pancreatitis. migraines, hx gestational diabetic, nausea/constipation/diarrhea/severe stomach cramps, "food sensitivities", eczema-dry skin, "borderline diabetic"-diet control, elevated triglycerides, frequent UTI's History of Any Multi-Drug Resistant Organisms: None Reported Past Surgical History: Section, Cholecystectomy Additional Past Surgical History / Comment(s): Dilation and Currettage Past Anesthesia/Blood Transfusion Reactions: Motion Sickness Past Psychological History: Bipolar Smoking Status: Former smoker, Vaper Past Alcohol Use History: None Reported Past Drug Use History: None Reported - Past Family History Father Additional Family Medical History / Comment(s): Hx CABG, father 2016 Mother Family Medical History: No Reported History General Exam Limitations: no limitations General appearance: alert, in no apparent distress Head exam: Present: atraumatic, normocephalic Eye exam: Present: normal appearance. Absent: scleral icterus, conjunctival injection ENT exam: Present: normal oropharynx Neck exam: Present: normal inspection, full ROM Respiratory exam: Present: normal lung sounds bilaterally. Absent: respiratory distress, wheezes, rales, rhonchi, stridor Cardiovascular Exam: Present: regular rate, normal rhythm, normal heart sounds. Absent: systolic murmur, diastolic murmur, rubs, gallop GI/Abdominal exam: Present: soft. Absent: distended, tenderness, guarding, rebound, rigid, mass Extremities exam: Present: normal inspection, normal capillary refill. Absent: pedal edema, calf tenderness Back exam: Present: normal inspection. Absent: CVA tenderness (R), CVA tenderness (L) Neurological exam: Present: alert, oriented X3, CN II-XII intact. Absent: motor sensory deficit Skin exam: Present: warm, dry, intact, normal color. Absent: rash Course Vital Signs 03/09/22 03/09/22 03/09/22 12:21 16:26 17:49 Temperature 98.2 F 98.0 F 98.1 F Pulse Rate 100 91 100 Respiratory 20 17 18 Rate Blood Pressure 114/76 114/77 112/75 O2 Sat by Pulse 98 97 98 Oximetry EKG Findings - EKG Results: EKG: interpreted by REILLYD, sinus rhythm, normal axis, normal QRS, normal ST/T, no acute changes EKG shows: tachycardia (Rate 101 bpm) Medical Decision Making - Medical Decision Making Patient is 32-year-old woman presenting after what sounds like brief syncopal episode during the full extent She did for an EEG. Her workup here is unremarkable. I discussed case with her neurologist who will see her back in clinic to complete the EEG. Patient reminded no driving until she is cleared - Lab Data Result diagrams: 03/09/22 13:24 03/09/22 13:24 Lab Results 03/09/22 03/09/22 03/09/22 Range/Units 13:24 13:24 13:24 WBC 7.5 (3.8-10.6) k/uL RBC 4.30 (3.80-5.40) m/uL Hgb 12.0 (11.4-16.0) gm/dL Hct 35.4 (34.0-46.0) % MCV 82.3 (80.0-100.0) fL MCH 27.8 (25.0-35.0) pg MCHC 33.8 (31.0-37.0) g/dL RDW 13.8 (11.5-15.5) % Plt Count 324 (150-450) k/uL MPV 7.8 Neutrophils % 57 % Lymphocytes % 32 % Monocytes % 4 % Eosinophils % 4 % Basophils % 0 % Neutrophils # 4.3 (1.3-7.7) k/uL Lymphocytes # 2.4 (1.0-4.8) k/uL Monocytes # 0.3 (0-1.0) k/uL Eosinophils # 0.3 (0-0.7) k/uL Basophils # 0.0 (0-0.2) k/uL PT 11.3 (9.0-12.0) sec INR 1.0 (<1.2) APTT 29.4 (22.0-30.0) sec Sodium 139 (137-145) mmol/L Potassium 3.8 (3.5-5.1) mmol/L Chloride 105 (98-107) mmol/L Carbon Dioxide 20 L (22-30) mmol/L Anion Gap 14 mmol/L BUN 7 (7-17) mg/dL Creatinine 0.58 (0.52-1.04) mg/dL Est GFR (CKD-EPI)AfAm >90 (>60 ml/min/1.73 sqM) Est GFR (CKD-EPI)NonAf >90 (>60 ml/min/1.73 sqM) Glucose 117 H (74-99) mg/dL Calcium 9.2 (8.4-10.2) mg/dL Total Bilirubin <0.1 L (0.2-1.3) mg/dL AST 24 (14-36) U/L ALT 26 (4-34) U/L Alkaline Phosphatase 81 (38-126) U/L Troponin I (0.000-0.034) ng/mL Total Protein 7.0 (6.3-8.2) g/dL Albumin 4.3 (3.5-5.0) g/dL 03/09/22 Range/Units 13:24 WBC (3.8-10.6) k/uL RBC (3.80-5.40) m/uL Hgb (11.4-16.0) gm/dL Hct (34.0-46.0) % MCV (80.0-100.0) fL MCH (25.0-35.0) pg MCHC (31.0-37.0) g/dL RDW (11.5-15.5) % Plt Count (150-450) k/uL MPV Neutrophils % % Lymphocytes % % Monocytes % % Eosinophils % % Basophils % % Neutrophils # (1.3-7.7) k/uL Lymphocytes # (1.0-4.8) k/uL Monocytes # (0-1.0) k/uL Eosinophils # (0-0.7) k/uL Basophils # (0-0.2) k/uL PT (9.0-12.0) sec INR (<1.2) APTT (22.0-30.0) sec Sodium (137-145) mmol/L Potassium (3.5-5.1) mmol/L Chloride (98-107) mmol/L Carbon Dioxide (22-30) mmol/L Anion Gap mmol/L BUN (7-17) mg/dL Creatinine (0.52-1.04) mg/dL Est GFR (CKD-EPI)AfAm (>60 ml/min/1.73 sqM) Est GFR (CKD-EPI)NonAf (>60 ml/min/1.73 sqM) Glucose (74-99) mg/dL Calcium (8.4-10.2) mg/dL Total Bilirubin (0.2-1.3) mg/dL AST (14-36) U/L ALT (4-34) U/L Alkaline Phosphatase (38-126) U/L Troponin I <0.012 (0.000-0.034) ng/mL Total Protein (6.3-8.2) g/dL Albumin (3.5-5.0) g/dL Disposition Clinical Impression: Syncope Disposition: HOME SELF-CARE Condition: Good Instructions (If sedation given, give patient instructions): Syncope (DC) Is patient prescribed a controlled substance at d/c from ED?: No Referrals: Chyna Beltran DO [Primary Care Provider] - 1-2 days
--- NOTE | 2022-03-09 16:53 | CT ---
EXAMINATION TYPE: CT brain wo con DATE OF EXAM: 03/09/2022 COMPARISON: 06/27/2011 HISTORY: syncope CT DLP: 1098.4 mGycm Automated exposure control for dose reduction was used. Images of the brain obtained with no contrast. Ventricles have normal size. There is no mass effect or midline shift. No sign of intracranial hemorr lonny. The calvarium is intact. There is normal aeration of the mastoid sinuses. Skull base is intact. IMPRESSION: Normal unenhanced head CT scan. No change.
[2022-03-09 17:50] VITALS: BP 112/75; PULSE 100; RESP 18; TEMP 98.1
== END 2022-03-09 17:50 | disposition home or self-care (01) ==
LOC: EC 11:32
DX: R55 Syncope and collapse (principal); Z87.891 Personal history of nicotine dependence; Z91.018 Allergy to other foods; Z88.0 Allergy status to penicillin; Z88.8 Allergy status to other drugs, medicaments and biological substances; Z88.1 Allergy status to other antibiotic agents; Z88.9 Allergy status to unspecified drugs, medicaments and biological substances
CPT/HCPCS: 36415; 70450; 71046; 80053; 84484; 85025; 85610; 85730; 93005; 99284

== ENCOUNTER → 2022-09-15 | Outpatient (CLI) | payer OTHER | END | disposition home or self-care (01) | LOC: LABPAT 11:32 | PROVIDERS: ATTEND Orthopaedic Surgery | DX: Z01.812 Encounter for preprocedural laboratory examination (principal); Z22.322 Carrier or suspected carrier of Methicillin resistant Staphylococcus aureus; M51.26 Other intervertebral disc displacement, lumbar region | CPT/HCPCS: 87070 ==

== ENCOUNTER 2022-09-24 10:01 | Day surgery (SDC) | payer OTHER ==
[2022-09-17 10:11] VITALS: BMI 32.3
--- NOTE | 2022-09-24 07:55 | P.HPOR ---
History of Present Illness H&P Date: 09/15/22 .D:Date: 09/15/22 : 03:43pm .T:Title: [facility] Date of :[birth year] R14 Allergies: Age: 32 year Height: 4'11" Weight: 218 lbs BMI: 44.03 kg/m2 Occupation: [employer]: 5 CHIEF COMPLAINT: 1 week pre operative appointment DOI: Chronic Duration of current treatment regiment: 11 months HISTORY: Xrays No xrays taken in office Trauma or injury No Work-Related No Pain description aching, sharp. Location posterior radiating to right lower extremity Activity Modification No Hand Dominance right DOI: Chronic TREATMENTS COMPLETED: 6 weeks of PT completed? Month and Year of last PT date? Yes, September - Jan 2022 No changes in symptoms Physician directed home exercise completed? yes Medications yes List: motrin and gabapentin Alternative interventions Chiropractic: No Massage therapy: No R.I.C.E: yes Brace: No Injections Yes How many? n/a in 2010 Did they help? yes for a short time RFA: No SUBJECTIVE: Ms. Pryor returns to the office today for a preoperative appointment for their lumbar L5-S1 bilateral laminectomy and Microdiscectomy . Patient reports she continues to have aching in her lower back that radiates into bilateral thighs. Patient states she notices weakness in bilateral lower extremities with increased and prolonged activity. patient does report numbness and tingling into bilateral lower extremities. For her symptoms, patient continues with Motrin and gabapentin. She has had previous injections in 2010 with no relief of her symptoms. She does not her leg numbness and tingling is more bothersome than her back pain. Patient denies any bowel/bladder incontinence, perineal numbness or tingling, and is ambulatory independently. HPI: Ms. Pryor returns to the office on 08/18/2022 for a recheck of her low back pain. Patient reports she continues to have aching in her lower back that radiates into bilateral thighs. Patient states she notices weakness in bilateral lower extremities with increased and prolonged activity. patient does report numbness and tingling into bilateral lower extremities. For her symptoms, patient continues with Motrin and gabapentin. Patient states she never received a call from pain management for injections. She has had previous injections in 2010 with no relief of her symptoms. She does not her leg numbness and tingling is more bothersome than her back pain. Patient denies any bowel/bladder incontinence, perineal numbness or tingling, and is ambulatory independently. Ms. Pryor returns to the office on 06/13/2022 for a recheck of her low back pain and MRI results. Patient reports she continues to have aching in her lower back that radiates into bilateral thighs. Patient states she notices weakness in bilateral lower extremities with increased and prolonged activity. patient does report numbness and tingling into bilateral lower extremities. For her symptoms, patient continues with Motrin and Excedrin. MRI results have been reviewed and discussed. Patient denies any bowel/bladder incontinence, perineal numbness or tingling, and is ambulatory independently. Ms. Pryor was last seen on 10/09/21 regarding a follow-up after ER visit related to back pain. Patient states she was unable to ambulate. Patient is currently walking independently with a shuffling gait. She states she has low back pain that radiates to her pelvis more towards the right side and into her right lower extremity. She does state that sometimes there will be sharp pain that shoots to BLE just behind the knee. Patient is currently working with her PCP incorporating physical therapy of the lumbar spine, Flexeril, and a Medrol Dosepak. patient denies any numbness or tingling to bilateral lower extremities. She denies any bowel/bladder incontinence. The patients' past social, medical, family, surgical history, as well as review of systems, have been reviewed. Please refer to the Neurosurgery History and Physical form that has been scanned in to our electronic medical record system. 14 points review of systems completed and as stated in HPI, all other systems reviewed are negative. Social History: Reviewed, see appropriate section of the chart for details. P3 Family History: Reviewed, see appropriate section of the chart for details. P2 Past Medical History: Reviewed, see appropriate section of the chart for details. P1 Current Medications: Rx: Abilify Ref: 0 Rx: acetaminophen 300 mg-codeine 30 mg tablet Ref: 0 Instructions: take 1 - 2 tablets by oral route every 4 hours as needed Rx: cyclobenzaprine 10 mg tablet Ref: 0 Instructions: take 1 tablet (10 mg) by oral route 2 times per day Rx: lithium carbonate 300 mg capsule Ref: 0 Instructions: take 1 capsule (300 mg) by oral route 2 times per day Rx: Wellbutrin Ref: 0 Rx: gabapentin 300 mg capsule Ref: 0 Instructions: take 1 capsule (300 mg) by oral route 3 times per day P1 PHYSICAL EXAMINATION: General: Awake, alert, appropriate for age, in no acute distress. HEENT: No unusual neck masses around region of lateral neck triangle, thyroid, supraclavicular groove Heart: Regular rate and rhythm, normal S1, S2 and no murmur/gallop. Lungs: Clear to auscultation bilaterally with no use of accessory muscles. Extremities: Skin warm and dry without acute lesions, coloration, temperature, skin intact, no tenderness or erythema Integument: Hairy patches: ABSENT Dorsal skin dimples: ABSENT Cafe au lait spots: ABSENT Surgical incisions: n/a Palpation: Please see Pain drawing on Intake sheet for further detail. Midline spinal tenderness: No E6 Cervical Tenderness: No E6 Paralumbar tenderness: No E6 Parathoracic tenderness: No E6 Buttocks tenderness: No E6 Sacroiliac Tenderness: No POSTURAL and MUSCULO-SKELETAL EVALUATION: Coronal Balance: NEUTRAL Recumbent testing: Patient is able to lay flat on back Sagittal Balance: NEUTRAL Shoulder Profile: LEVEL Pelvic Girdle: LEVEL Neck ROM: UNRESTRICTED Lumbar ROM: RESTRICTED Shoulder ROM: Symmetrical Hip ROM: Symmetrical Knee ROM: Symmetrical Hands: Normal appearance, symmetrical Feet: Normal appearance, Symmetrical VASCULAR STATUS : LEFT RIGHT Wrist Pulses INTACT INTACT Pedal Pulses (Dors. pedis & post.tibialis) INTACT INTACT Color NORMAL NORMAL Edema Absent Absent NEUROLOGIC EXAMINATION: Mental Status:Awake and alert, fully oriented, with normal attention, concentration and memory, and fluent, appropriate speech. Cranial Nerves: I: Olfactory not tested. II: Visual acuity normal, no visual field deficit noted with confrontation. III,IV: Normal pupillary reflexes & intact extraocular movements without nystagmus. V,: Intact symmetrical facial sensation. VII: Intact symmetrical facial motor movement VIII: Hearing intact. IX,X: Intact gag, swallow, & normal voice. XI: Sternocleidomastoid, trapezius function intact. XII: Tongue midline with normal movements. L'hermitte's Sign: Negative / absent Spurling'Sign: Absent bilaterally. Cubital percussion test: Absent bilaterally. Frias-Tinel sign - Carpal region: Absent bilaterally. Straight Leg Raising: Positive left Crossed straight leg raise: positive O8 MOTOR EXAM (0-5/5, N/T Muscle appearance: Symmetrical, without signs of atrophy or dystrophy UPPER EXTREMITY RIGHT LEFT Shoulder Abduction 5/5 5/5 Biceps 5/5 5/5 Triceps 5/5 5/5 Wrist Extension 5/5 5/5 Hand Intrnsics 5/5 5/5 Panel Saw Operator 5/5 5/5 LOWER EXTREMITY RIGHT LEFT Hip Flexion 5/5 5/5 Knee Extension 5/5 5/5 Knee Flexion 5/5 5/5 Dorsiflexion 4+/5 5/5 Plantarflexion 4+/5 5/5 EHL 5/5 5/5 FHL 5/5 5/5 Toe heel walk / heel-toe walk intact while maintaining satisfactory balance? yes Squatting/straightening w/o assistance to a min of 60 degree knee flexion? No Single leg stance: intact Trendelenburg sign negative bilaterally REFLEXES(0-4/2, NT)Upper ExtremityLower Extremity Right 2 2 Left 2 2 Pathological Reflexes RIGHT LEFT Frias's Absent Absent Clonus Absent Absent Babinski Absent Absent Sensory system (0-4, N/T) Test type RU MITCH RL LL Joint-Position 2 2 2 2 Vibration 2 2 2 2 Pain & LT sense 2 2 2 2 Dermatomal Deficit: None None None None Gait and Functional Evaluation: Ambulatory aids: Independent Romberg's test: Intact bilaterally Steady Gait RADIOGRAPHIC STUDIES: previous x-rays reviewed and demonstrate mild disc height loss at L5-S1. No severe facet arthrosis no instability on flexion-extension films MRI scancompleted at Outside facility from06/25/22 of Lumbar Spine: images reviewed This demonstrates L5-S1 large disc herniation central paracentral to the left hand side causing abutment on the S1 nerve root. There is also stenosis centrally as well as foraminal he related to this which is moderate to severe. There is spondylosis at this level secondary to disc degeneration. At L4-L5 there is a small annular tear no disc herniation or stenosis. No fracture dislocation otherwise noted. IMPRESSION: It was my pleasure to have seen and examined Nohemi. I reviewed the patient's clinical syndrome, physical findings, and imaging studies during the appointment today. It is my impression that the patient has a diagnosis of. 1. L5-S1 HNP 2.L5-S1 spinal stenosis 3. Bilateral lower extremity radiculopathy I outlined the natural course history without intervention and various interventional options. PLAN All options were reviewed today, we decided the best course of action would be: -Advised patient to continue with supplements, health maintenance, and home exercise programs. Patient expressed understanding and will continue with these modalities. I discussed treatment options with the patient, including operative and non- operative options, and they have elected to proceed with the following surgical procedure: lumbar L5-S1 bilateral laminectomy and Microdiscectomy The indications, risks, benefits, and alternatives to surgery were discussed with the patient and family at length. Specifically (but not limited to) the risks of infection, stiffness, recurrence of symptoms, need for revision surgery, local numbness, neurovascular injury, and blood clots were discussed. The patient's questions were answered. -Ambulate daily -Take pain medications and post op medications as needed and as directed -Ice and rest for pain and swelling control. - Patient is to have pre operative clearance with primary care physician pre operatively Spine Surgery Risk Review Ms. Pryor is presenting for evaluation of low back pain. It was my pleasure to have seen and examined Ms. Pryor. In our visit today we have had a chance to go over subjective complaints, physical examination findings and treatments including the natural course history without intervention and various interventional options. The patients imaging demonstrates: MRI scancompleted at Outside facility from06/25/22 of Lumbar Spine: Impression: 1. L5-S1 disc herniation with disc material closely approximating the forming S1-S2 nerves. There is mild spinal canal stenosis at this level. 2. Mild multilevel disc degeneration changes. On physical exam, Ms. Pryor demonstrates: Patient reports she continues to have aching in her lower back that radiates into bilateral thighs. Patient states she notices weakness in bilateral lower extremities with increased and prolonged activity. patient does report numbness and tingling into bilateral lower extremities. I have explained to the patient that as their condition progresses it will cause further neurological deficits and eventual paralysis. Based on the patients imaging, physical exam, and the rapid progression and disabling nature of their symptoms, at this time I recommend surgery in the form of a: L5-S1 bilateral Microdiscectomy and laminectomy . I discussed the risk and benefits of this procedure at length with Ms. Pryor. The patient agreed to considered pursuing the procedure abovementioned. Prior to surgery, she should follow up with her PCP (Cardio, ID, IM etc) for clearance. Questions were invited and answered, and the patient wishes to proceed as outlined below. Currently, I am recommendin.L5-S1 Bilateral laminectomy with microdiscectomy 2.Follow up with PCP for surgical clearance 3.Review of surgical risks and benefits as well as an educational packet on the proposed surgical procedure. Risks: All surgical procedures come with inherent risks, including those related to positioning, anesthesia, intraoperative findings, and postoperative complications. It is important to understand that surgery does not come with any guarantee of a successful outcome as complications and adverse events are always possible. The patient was given a handout in office today discussing the surgical procedure and risks associated with the intervention, both of which were discussed with the patient. These risks include but are not limited to the following: * Experiencing same, different or even worse symptoms in back, neck, arms, or legs compared to before surgery. Requiring further surgery or other forms of treatment presently or at some time in the future at same or other levels of the intended spine surgery. On an extreme but fortunately relatively rare basis severe complication such as blindness, stroke, heart attack, temporary and/or permanent nerve injury, paralysis, coma, or may occur, sometimes without known explanation. Surgical complications may include but are not limited to risk of infection, fluid accumulation in the surgical dissection site, including a seroma or hematoma, that requires additional surgery, wound drainage, bleeding, new numbness or weakness, vision changes/loss, spinal fluid leakage, non-healing and/or infected incision, headaches, difficulty or inability to swallow, hoarseness, hemopneumothorax, pneumothorax, impotence, retrograde ejaculation, vaginal dryness; injury to nerves, spinal cord, blood vessels, lymphatics or other vital organs (i.e., bowel injury, injury to the great vessels); heterotopic bone formation; complications related to the hardware such as screws, rods, cages including misplaced hardware, device failure, instrumentation at the wrong spine level, hardware fracture/breakage, or hardware loosening; vertebral failure of the spinal column above or below the newly placed hardware; retained surgical instrumentations or devices and the need for further surgery. * Medical risks of the planned spine surgery include but are not limited to generalized Infections to the whole body or local areas outside of the surgical site (sepsis), heart attack, bleeding, anaphylaxis, meningitis, seizure, epilepsy, hearing loss, burn bernal, laceration of the head or other areas of the body, bruising, hypersensitivity of the skin, bladder over distension; allergic reaction; shoulder injury related to positioning; fat, blood and air clots to other areas of the body like heart, lungs, brain; failure of internal organs such as lungs, kidneys, liver and excessive bleeding. If blood transfusions are necessary, note that transfusions may cause intolerance reactions such as anaphylaxis or other complex reactions. Despite best efforts, the results of spine surgery might not heal in terms of bone, soft tissues such as skin, fascia, ligaments, and joints. Additionally, in order to achieve best possible results, spine surgery may be carried out beyond the initially planned levels and involve decompression, fusion including insertion of hardware at levels other than the original intended area of surgical interest change some portions of the procedure in order to ensure the best possible outcomes. With spine surgery and spinal fusion, there are different off label uses of instrumentation (devices, implants and hardware) as well as biological substances (bone morphogenic proteins, demineralized bone matrix) as well as using extra bone from allograft sources (i.e. cadaver bone) or autograft (iliac crest bone, ribs, or the spine itself). The patient has been given information about these practices and their inherent risks and benefits. [facility] is an educational center that serves as a training facility for neurosurgical and orthopedic [employer]PER[employer] and Nursing students. Physician assistants are medically trained surgical providers who function in the outpatient, inpatient, and operating room setting under the direct supervision of the attending surgeon. [facility] has multiple operating rooms with single and overlapping rooms running daily. They currently function under the required guidelines as produced by the [facility] Finance Committee with regards to the overlapping rooms and will continue to comply with changes to this policy as they occur. The requirements include and are complied with as follows: (1) the critical portions of the overlapping rooms will not occur at the same time, (2) the attending physician will be physically present during the critical portions of the procedure and immediately available during the entire case, and (3) a back-up attending is designated should the primary attending not be immediately available. The patient has had a chance to review all the listed information, has been given print outs detailing this information, and has had all his/her questions answered to their satisfaction. It was my pleasure to have seen and examined Ms. Pryor. In our visit today we have had a chance to go over my understanding of our patient's current condition, the natural course history without intervention and various interventional options. Questions were invited and answered, and the patient wishes to proceed as outlined above. I have seen and examined the patient for 25 minutes and we have spent more than 50% of the time in repeat and detailed coun seling about the patient's condition, its natural course history with out and as much as can be predicted with surgery and re-review of various surgical treatment options. In conclusion, Ms. Pryor and requested we proceed with the above suggested surgery and are willing to accept risks and limitations of the suggested surgery as nature of the disease process and our best attempts at treatment for the condition. Thank you again for allowing us to be part of your patient's care. Please don't hesitate to contact me if you have any further questions. Follow- up: Post procedure Patient Education: (Informational booklet, instructions, etc) given at today's appointment: Yes .ED:Patient Education: Y Medications Reviewed: YES In our visit today Ms. Pryor and I have had a chance to go over my understanding of the patient's current condition, the natural course history without intervention and various interventional options. Questions were invited and answered, and the patient wishes to proceed as outlined above. I will be sure to keep you updated afterMs. Pryor returns here for further follow-up. Thank you again for your referral. Please do not hesitate to contact me if you have any further questions. Signed and authenticated by: Levi Dobbins [facility] [address] [place] [id number] This message is confidential, intended only for the named recipient(s) and may contain information that is privileged or exempt from disclosure under applicable law. If you are not the intended recipient(s), you are notified that the dissemination, distribution or copying of this information is strictly prohibited. If you received this message in error, please notify the sender then delete this message. Patient verbalizes understanding of the information discussed. The above note was initiated by Charisma Rizzo, physician recording hr assistant for Dr. Levi Logan. This note has been reviewed by Dr. Logan, who has made his personal changes and impressions for this document. CC: Macy Garza # SIGNED BY Levi Logan (GOO)09/22/2022 07:30PM Past Medical History Past Medical History: Fibromyalgia, GERD/Reflux, Skin Disorder Additional Past Medical History / Comment(s): hx bowel obstruction(self resolved) pancreatitis. migraines, hx gestational diabetic, , eczema-dry skin, elevated triglycerides, frequent UTI's-NONE CURRENTLY History of Any Multi-Drug Resistant Organisms: None Reported Past Surgical History: Section, Cholecystectomy Additional Past Surgical History / Comment(s): Dilation and Currettage. COLONOSCOPY Past Anesthesia/Blood Transfusion Reactions: Motion Sickness Additional Past Anesthesia/Blood Transfusion Reaction / Comment(s): ANXIOUS WHEN COMING OUT OF ANESTHESIA Smoking Status: Former smoker, Vaper - Past Family History Father Additional Family Medical History / Comment(s): Hx CABG, father 2016 Mother Family Medical History: No Reported History Medications and Allergies Home Medications Medication Instructions Recorded Confirmed Type Ergocalciferol [Vitamin D2 (1250 1,250 mcg PO WE 11/24/20 09/17/22 History Mcg = 37244 Iu)] Fish Oil/Dha/Epa [Fish Oil 1,200 1 each PO DAILY 09/17/22 09/17/22 History mg Fish Oil] Gabapentin [Neurontin] 300 mg PO TID 09/17/22 09/17/22 History Vortioxetine Hydrobromide 10 mg PO DAILY 09/17/22 09/17/22 History [Trintellix] buPROPion XL [Wellbutrin XL] 150 mg PO DAILY 09/17/22 09/17/22 History Allergies Allergy/AdvReac Type Severity Reaction Status Date / Time wheat Allergy Abdominal Verified 09/17/22 09:55 Pain/hives amoxicillin trihydrate AdvReac Abdominal Verified 09/17/22 09:55 [From Augmentin] Pain eszopiclone [From Lunesta] AdvReac Confusion Verified 09/17/22 09:55 potassium clavulanate AdvReac Abdominal Verified 09/17/22 09:55 [From Augmentin] Pain tegaderm AdvReac Rash/Hives Uncoded 09/17/22 09:55 Physical Examination Osteopathic Statement: *. No significant issues noted on an osteopathic structural exam other than those noted in the History and Physical/Consult.
[~2022-09-24 10:01] MED LIST changes: +ACETAMINOPHEN TAB 500 MG TAB PO PRN; +DEXAMETHASONE SOD PHOSPHATE 4 MG/ML 1 ML VIAL IV ONE; +GABAPENTIN 300 MG CAP PO PRN; +HYDROmorphone 0.5 MG/0.5 ML SYRINGE IVP PRN; -LACTATED RINGERS 1,000 ML IV SCH; +MIDAZOLAM 2 MG/2 ML VIAL IV PRN; +ONDANSETRON 4 MG/2 ML VIAL IVP ONE; +ONDANSETRON 4 MG/2 ML VIAL IVP PRN; +TRANEXAMIC ACID IN NACL,ISO-OS 1,000 MG in SALINE 1 100ML.BAG IVPB PRN
[2022-09-24] MEDS: LACTATED RINGERS 1,000 ML IV SCH (11:14)
[2022-09-24 11:36] LABS: Glucose,Whole Blood 97 mg/dL (70-110)
[2022-09-24] MEDS ORDERED: ROCURONIUM 10 MG/ML (5 ML VIAL) IV ONE (13:00)
[2022-09-24] MEDS ORDERED: PROPOFOL 10 MG/ML 20 ML VIAL IV ONE (13:00)
[2022-09-24] MEDS ORDERED: LIDOCAINE 2% INJ 20 MG/ML (2 ML VIAL) ONE (13:00)
[2022-09-24] MEDS ORDERED: TRANEXAMIC ACID IN NACL,ISO-OS 1,000 MG/100 ML BAG ONE (13:00)
[2022-09-24] MEDS ORDERED: ePHEDrine 50 MG/ML 1 ML VIAL ONE (13:00)
[2022-09-24] MEDS ORDERED: MIDAZOLAM 2 MG/2 ML VIAL ONE (13:00)
[2022-09-24] MEDS ORDERED: HYDROmorphone (PF) 1 MG/ML ONE (13:00)
[2022-09-24] MEDS ORDERED: GLYCOPYRROLATE 0.2 MG/ML 2 ML VIAL ONE (13:00)
[2022-09-24] MEDS ORDERED: NEOSTIGMINE 1 MG/ML 10 ML VIAL ONE (13:00)
[2022-09-24] MEDS ORDERED: SUCCINYLCHOLINE CHLORIDE 200 MG/10 ML VIAL IV ONE (13:00)
[2022-09-24] MEDS ORDERED: fentaNYL (PF) 50 MCG/ML 2 ML AMP ONE (13:00)
[2022-09-24] MEDS ORDERED: BUPIVACAIN-EPI 0.25%-1:200,000 30 ML VIAL SQ ONE (13:44)
[2022-09-24] MEDS ORDERED: LACTATED RINGERS 1,000 ML IV ONE (13:57)
[2022-09-24] MEDS ORDERED: GENTAMICIN 80 MG in SODIUM CHLORIDE 0.9% IRRIGATIO 3,000 ML IRRIGATION ONE (13:57)
[2022-09-24] MEDS ORDERED: ceFAZolin 3,000 MG in SODIUM CHLORIDE 0.9% IRRIGATIO 3,000 ML IRRIGATION ONE (13:57)
--- NOTE | 2022-09-24 15:28 | P.OP ---
Date of Procedure: 09/24/22 Preoperative Diagnosis: 1. 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 LE radiculopathy 3. LE paresthesia Postoperative Diagnosis: 1. 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 LE radiculopathy 3. LE paresthesia Procedure(s) Performed: 1. Bilateral hemilaminotomy partial medial facetectomy, foraminotomy with microdiscectomy (31120/50) Use of IO microscope Anesthesia: KATHARINE Surgeon: Levi Logan Heavy Truck Mechanic #1: Jonathan Painting (Was present and assisted with all aspects of the case from positioning to dressing placement) Estimated Blood Loss (ml): 25 IV fluids (ml): 700 Urine output (ml): 0 Pathology: none sent Condition: stable Disposition: PACU Indications for Procedure: Ms. Pryor is presenting for evaluation of low back pain. It was my pleasure to have seen and examined Ms. Pryor. In our visit today we have had a chance to go over subjective complaints, physical examination findings and treatments including the natural course history without intervention and various interventional options. The patients imaging demonstrates: MRI scancompleted at Outside facility from06/25/22 of Lumbar Spine: Impression: 1. L5-S1 disc herniation with disc material closely approximating the forming S1-S2 nerves. There is mild spinal canal stenosis at this level. 2. Mild multilevel disc degeneration changes. On physical exam, Ms. Pryor demonstrates: Patient reports she continues to have aching in her lower back that radiates into bilateral thighs. Patient states she notices weakness in bilateral lower extremities with increased and prolonged activity. patient does report numbness and tingling into bilateral lower extremities. I have explained to the patient that as their condition progresses it will cause further neurological deficits and eventual paralysis. Based on the patients imaging, physical exam, and the rapid progression and disabling nature of their symptoms, at this time I recommend surgery in the form of a: L5-S1 bilateral Microdiscectomy and laminectomy . I discussed the risk and benefits of this procedure at length with Ms. Pryor. The patient agreed to considered pursuing the procedure abovementioned. Prior to surgery, she should follow up with her PCP (Cardio, ID, IM etc) for clearance. Questions were invited and answered, and the patient wishes to proceed as outlined below. Currently, I am recommendin.L5-S1 Bilateral laminectomy with microdiscectomy Description of Procedure: L5-S1 Bilateral hemilaminotomy microdiscectomy The patient was seen and examined in the preoperative area. All preoperative protocols were followed. Informed consent was obtained, risks and benefits of the procedure were discussed at length. Risks including bleeding infection damage to the surrounding tissue and risk of re-operation were discussed with the patient. Risk of anesthesia up to and including was discussed with the patient. These are outlined in the risk review. They were willing to accept these risks and all the risks of surgery. The patient was given a weight-based dose of antibiotics in the form of 2 g Ancef. The patient was seen and evaluated by the anesthesia team who deemed them fit for surgery. The site was marked, the patient was willing to proceed with the procedure. The patient was transferred to the operative suite by the Department of anesthesia. They were then drifted off to sleep by the department anesthesia and GETA was performed. The patient tolerated this well. Merritt catheter was placed by nursing staff, a-traumatically. Once confirmation of lines and ventilation the patient was transferred to a prone Christiano table very carefully. All bony prominences including wrists, elbows, axilla, chest, hips, and thighs, and feet were padded very well. Special attention was paid to the genitalia, and these were padded accordingly. SCDs were placed on bilateral lower extremities and were connected. Arms were well padded and placed on arm boards up and out in the 90/90 position. Once in position, again we confirmed good ventilation capabilities and that lines were running appropriately. The patients Lumbar spine was then exposed. 1010s were placed outlining the incision site. Standard alcohol was used to clean the incision site and allowed to dry. C-arm was used to needle localize the pedicles at L5-S1 and bio-stefani the patient and confirm level for incision which was marked with a skin marker. Operative briefing was performed with all teams and everyone in agreement to proceed. The patient was then prepped and draped in a normal sterile fashion. Timeout was then performed, and all parties agreed with the procedure to be performed. Skin incision was made over the previously marked area and dissection taken down to the deep facia which was split just off midline for a midline sparing approach bilaterally. Subperiosteal dissection was then taken down the lamina over the facet joints and identifying the pars at L5-S1. [place] 4 was placed at the level of the pars of L5 and a lateral image taken to confirm operative level. Retractors were then placed. Microscope was then brought in for visualization. Bilateral Sean-laminotomy, partial medial facetectomy and foraminotomy were performed at L5-S1 using high speed melodie and Kerrison rongure. The ligamentum flavum was removed with Kerrison and curette. Dura and roots protected. The disc space was identified along with the herniation. 11 blade was used to make small annulotomy and micro-pituitary used to remove loose disc fragments. Once fragments were removed, down biting curette was used to push any medial fragments down and towards the annulotomy and decompress centrally. The disc space was irrigated, and any loose fragments removed again. Bipolar was used for hemostasis and scarring of the annulotomy. This was performed bilateral for decompression of b/l roots. The area was irrigated, and meticulous hemostasis performed. The bed was inspected, and all roots have ample room and are decompressed along with the dura. There were no injuries. Final Xray showed good decompression. Retractors were then removed. The wound was copiously irrigated with NSS. The deep fascia was closed with 0 PDS. Deep sub-q with 0 Vicryl and superficial with 2-0 Vicryl. Subcuticular was closed with 3-0 stratafix. The wound edges approximated well. The wound was then cleaned, and glue tape placed on the skin and allowed to dry. It was then Covered with an Opifoam dressing. The patient was then transferred off the table back to their hospital bed a-t raumatically. They were extubated by the department of anesthesia. They were then transferred to PACU in stable condition having tolerated the procedure with no complications.
[2022-09-24] MEDS ORDERED: HYDROmorphone 1 MG/ML 1 ML SYRINGE IVP PRN (15:39)
[2022-09-24] MEDS ORDERED: ONDANSETRON 4 MG/2 ML VIAL IVP PRN (15:39)
[2022-09-24] MEDS ORDERED: SENNOSIDES-DOCUSATE SODIUM 1 EACH TAB PO PRN (15:39)
[2022-09-24] MEDS ORDERED: HYDROmorphone 0.5 MG/0.5 ML SYRINGE IVP PRN (15:39)
[2022-09-24] MEDS ORDERED: HYDROcodone/APAP 5-325MG 1 EACH TAB PO PRN (15:39)
[2022-09-24] MEDS ORDERED: HYDROcodone/APAP 7.5-325MG 1 EACH TAB PO PRN (15:42)
--- NOTE | 2022-09-24 16:04 | XR ---
Intraoperative/procedural fluoroscopic services were provided for lumbar fusion. Total fluoroscopy ti me is 6 minutes with a total of 6 seconds submitted images to PACS. Total DAP 1.2537. Please see the operative note for further details.
[2022-09-24] MEDS: GABAPENTIN 300 MG CAP PO SCH ×2 (17:20→23:28)
[2022-09-24] MEDS: ACETAMINOPHEN TAB 325 MG TAB PO SCH ×2 (18:41→23:28)
[2022-09-24] MEDS: CYCLOBENZAPRINE 5 MG TAB PO PRN (20:53)
[2022-09-25] MEDS: LACTATED RINGERS 1,000 ML IV SCH (01:00)
[2022-09-25] MEDS: ACETAMINOPHEN TAB 325 MG TAB PO SCH ×2 (06:35→12:21)
[2022-09-25] MEDS: CYCLOBENZAPRINE 5 MG TAB PO PRN ×2 (06:37→13:02)
[2022-09-25 07:59] VITALS: BP 95/60; PULSE 75; RESP 17; TEMP 97.7
[2022-09-25] MEDS ORDERED: buPROPion XL 150 MG TAB.ER.24H PO SCH (09:00)
[2022-09-25] MEDS ORDERED: VORTIOXETINE HYDROBROMIDE 10 MG PO SCH (09:00)
[2022-09-25] MEDS ORDERED: NON FORMULARY DRUG (Fish Oil/Dha/Epa [Fish Oil 1,200 Mg Fish Oil] 1 EACH Capsule) PO SCH (09:00)
[2022-09-25] MEDS: GABAPENTIN 300 MG CAP PO SCH (09:12)
--- NOTE | 2022-09-25 11:43 | P.PN ---
Subjective Progress Note Date: 09/25/22 Principal diagnosis: s/p L5-S1 microdiscectomy Patient is examined today at bedside, she is resting comfortably. She states that she's having some generalized soreness in her low back. Her discomfort in the right lower extremity weakness in the left lower extremity is significantly improved since surgery. She has been up and ambulating. She has been urinating with no difficulties. She denies any headaches, lightheadedness, chest pain or shortness of breath Objective - Vital Signs Vital signs: Vital Signs Temp 97.7 F 09/25/22 07:19 Pulse 75 09/25/22 07:45 Resp 17 09/25/22 07:45 BP 95/60 09/25/22 07:19 Pulse Ox 98 09/25/22 07:19 FiO2 Intake & Output 09/24/22 09/25/22 09/25/22 18:59 06:59 18:59 Intake Total 951 118 Output Total 25 Balance 926 118 Weight 72.2 kg Intake: IV 951 Oral 118 Output: Urine 0 Estimated Blood Loss 25 Other: # Voids 2 - Exam Gen: AOx3, NAD VSS stable at this time Integument: Bandages clean, dry and intact Palpation: Mild tenderness with palpation to the lower lumbar midline and paraspinal region ROM: Range of motion in all major muscle groups of bilateral upper and lower extremities, no focal deficits appreciated Sensory Exam: Senory exam to light touch is intact C5-T1 Senosry exam to light touch is intact L2-S1 Motor: 5/5 strength appreciated in the right lower extremity with hip flexion, knee extension, knee flexion, plantar flexion, dorsiflexion, EHL, FHL 4+/5 strength appreciated in the left lower extremity with hip flexion 5/5 strength appreciated in the left lower extremity with knee flexion, knee extension, plantar flexion, dorsiflexion, EHL, FHL Reflexes: 2/4 in all UE and LE Negative Danna's bilaterally, negative Babinski bilaterally, negative clonus bilaterally Assessment and Plan Assessment: Postoperative day #1 status post L5-S1 microdiscectomy Plan: Pain control, will utilize Flexeril and Hitchcock as needed at discharge Patient will utilize Duricef 500 mg twice a day for 5 days for infection prophylaxis at discharge Activity level instructions were discussed, this to include no bending lifting or twisting Wound care instructions were discussed, this to include use of the bandage and showering Weight-bear as tolerated Discharge planning: Stable for discharge home today Time with Patient: Less than 30
--- NOTE | 2022-09-25 11:44 | P.DS ---
Providers Date of admission: 09/24/2022 Expected date of discharge: 09/25/22 Attending physician: Levi Logan DO Primary care physician: Sawyer King Hospital Course: Date of admission: 09/24/2022 Date of discharge: 09/25/2022 Admission diagnosis: Status post bilateral hemilaminotomy partial medial facetectomy, foraminotomy with microdiscectomy Discharge diagnosis: Same Attending physician: Dr. Logan Surgical procedures: Bilateral hemilaminotomy partial medial facetectomy, foraminotomy with microdiscectomy Brief history: Patient is a 32-year-old female with a history of lower extremity paresthesias along with radicular symptoms. She had been evaluated in the outpatient setting and Dr. Logan and conservative measures had failed with regards to the L5-S1 herniated disc. Patient was scheduled for an elective surg chicho for 09/24/2022. Hospital course: Details of patient's surgery can be found in operative report. Patient tolerated the procedure well and was subsequently transported to orthopedic floor. Patient's orthopeidc and medical care was provided daily. Patient had daily laboratory tests performed for evaluation of overall blood counts. Patient had daily physical therapy to include strengthening range of motion as well as education with walker ambulation. Patient was treated with TANISHA hose and compression stocking for their postoperative DVT prophylaxis during their inpatient stay. Patient was noted to have a relatively uneventful postoperative course. Patient reported satisfactory pain control with oral pain medications by postoperative day 1. Patient showed satisfactory progress with physical therapy. Patient moved steadily through the program and had no difficulty meeting the goals by postoperative day 1. Given patient's otherwise satisfactory course and having met physical therapy goals, plan is to discharge patient home on postoperative day 1. Discharge condition/disposition: Patient will be discharged home in stable condition. Discharge medications: Instructions are given on resumption of patient's normal daily medications per primary care recommendation, in addition patient will be prescribed [place] 7.5 mg/325 mg, Flexeril 5 mg, Senokot-S, Duricef 500 mg. Spine Discharge and Recovery Instructions Dressing: Leave your dressing in place for a total of 5 days post operatively. Then you may remove your dressing and leave open to air. Keep the area clean and if not able to keep area clean, then cover with sterile gauze and tape. Showering: You may shower 3 days after your procedure allowing soap and water to run over incision. Do not scrub. Do not soak. Blot dry. Follow up: Please confirm a follow up appointment with your surgeon 3 weeks post operatively. Please make an appointment to follow up with your PCP in 1-2 weeks after surgery for evaluation 3 phase, 3-week plan POST OP WEEKS 1-3 1. Lifting/carrying/pushing/pulling limited to less than 5 pounds. 2. Do not sit for longer than 15 minutes at one time. Get up and walk around. Prolonged sitting is NOT advised. If you lay down, see if you can tolerate laying down on you front (belly side) 3. Walk for periods of 15 minutes = 1 mile but no longer; do it multiple times times each day. 4. Ice your low back after activity. POST OP WEEKS 3-6 1. Lifting limited to less than 20 pounds. 2. Do not sit for longer than 30 minutes at a time. Frequently change positions. Use a sit-to stand workstation or take frequent breaks from sitting if you have returned to work. 3. Walk for 30 minutes each day. If possible, do these three or more times a day POST OP WEEKS 6+ At your 6-week appointment we will give you a physical therapy referral to focus on a core stabilization and strengthening program. You should also work on leg & buttock strengthening, hamstring & quadriceps stretching, and continue a low impact aerobic activity program such as swimming, walking, or riding a sta tionary bicycle. During the initial 6 weeks after your surgery, you are at the highest risk of re-injuring your spine. You should generally avoid BLTs (bending, lifting and twisting combination motions) and follow the above guidelines to reduce the chance of reinjury. You can anticipate post op appointments in our office at approximately 3 weeks and 6 weeks after your surgery. INCISION CARE: If your incision is not draining you do NOT need to cover it with a dressing. Keep your incision clean, dry and intact. In most cases, we apply skin glue, minh or sutures to the incision at the time of surgery. This will be like a crust or have the appearance of a scab and will fall off in time on its own. The stitches or minh need to be removed at 3 weeks post op appointment. You may begin to shower 3 days after surgery (this allows the glue to barrios well). However, please avoid scrubbing the incision site or peeling off any of the skin glue. This will ensure optimal healing of your incision. Also, during this time avoid soaking the incision area in water - this includes swimming pools, hot tubs or baths. No ointments, lotions or oils on the incision until your surgeon allows. Leave minh, sutures or glue in place. Neurological dysfunction that comes on suddenly can also be a sign of a stroke. Below some common symptoms of a stroke are listed: B - balance difficulty such as sudden onset walking or leaning to one side - NEW E - eye problem such as sudden double vision or trouble seeing on one side - NEW F - Facial weakness or numbness on one side - NEW A - Arm or leg weakness or numbness on one side - NEW S - Slurred speech or difficulty with word finding - NEW T - Time is BRAIN! Call 911 as soon as you recognize these symptoms Diet: Consume a regular diet rich in vegetables and lean protein such as chicken or fish. You should consume in a ratio of approximately 20% fats|40% ca rbohydrates|40%protein. Vegetables, sweet potatoes, brown rice or quinoa are examples of good carbohydrates. Chips, white bread, cookies and sweets/sugar are examples of bad carbohydrates. Limit your bad carbs, go wild with good carbs. "Life's Simple 7" Guidelines as per [place] [employer] These will help you reclaim your life after surgery and hoop flaring machine operator helper in your recovery, keeping in mind your restrictions. (1) Get Active. Physical activity can help people lose weight, control high blood pressure and cholesterol, feel emotionally better, and sleep better. (2) Control Cholesterol. Avoid a diet high in saturated fat, trans fat, & cholesterol. Limit whole milk & cream, ice cream, butter, egg yolks, processed meats (like sausage and hot dogs), and fatty meats. Choose healthy foods that are low in saturated fat, trans fat and cholesterol which include: Fruits and vegetables, fiber rich grain products (like whole grain pasta and brown rice), lean meat such as chicken, fish, nuts, seeds, and legumes. (3) Eat Better. Eat small portions. Shop at the grocery with a list and do not stray from it. Tips for a healthy diet include: Limit sodium intake to less than 1500mg daily, avoid prepackaged, processed, and fast foods, choose a diet rich in fruits, vegetables, and whole grain, high fiber foods, and limit saturated & cholesterol in your diet. (4) Manage Blood Pressure. If you have high blood pressure, you should have a cuff at home so that you can check your blood pressure regularly. Be sure you have a good cuff. An arm one is generally better than a wrist one. Bring the cuff to a doctor's appointment to validate that the measurements that your cuff are taking are accurate. Take your blood pressure twice daily when you are sitting down and relaxing. Record the numbers in a log and bring this log with you to your doctors' appointments. (5) Lose Weight if your BMI is above 25. A healthy BMI is between 19-25. To calculate Your BMI, you may use a Standard BMI Calculator on the NIH BMI website: <www.nhlbi.nih.gov/guidelines/obesity/BMI/bmicalc.htm>. Weigh oneself daily. If you are overweight, set a goal to lose weight. A pound a week loss if needed is a good target. (6) Reduce Blood Sugar. Limit foods and liquids with "added sugars." (Added sugars include sucrose, fructose, glucose, maltose, dextrose, high fructose corn syrup, corn syrup, concentrated fruit juice and honey). (7) Stop Smoking. If you smoke, quitting smoking is one of the best things that you can do for your health. Smoking increases your risk of heart attack, stroke, and peripheral vascular disease, which is a build-up of plaque in your arteries. Please discard all the cigarettes and lighters in your house. Have a plan for what you will do when you have the urge to smoke. Direct and second- hand smoke shortens your life as well as the lives of your family, friends and others around you. For your health and the health of those around you, please consider quitting! Proper Bending Body Mechanics: Maintain a wide stance with one foot slightly in front of the other. Keep your back straight. Bend utilizing the strength in your hips and knees. Do not bend at the waist. Maintain the lifted object at your waist-level close to your body. Avoid lifting weight that causes immediately pain or pain anywhere in the body afterwards. Smoking/Nicotine If there was ever one thing that you could do to increase your overall health, decrease your risk of cardiovascular problems by about 39% the second you make the choice, it is to STOP SMOKING. Your body's most instant gratification is the second you stop smoking. We have all heard the studies, read the articles b ut it is true, smoking is extremely bad for your overall health, and moreover it is detrimental to your bone health. Nicotine, IN ANY FORM, kills bone cells, prevents your body from healing f ractures, and significantly prolongs healing after surgery. In spine surgery specifically, it increases your risk of not healing your bones to create a fusion and increases your risk of having a revision surgery due to this up to 60%. I know it is hard. I know it feels impossible. But there are ways. Take control of your life. We are here to help you through it. And when you are ready, ask us and we can direct you to help if you desire. Use the START Plan to Quit Smoking (please visit the [employer] website listed below for more information): S = Set a quit date. Choose a date within the next 2 weeks, so you have enough time to prepare without losing your motivation to quit. If you mainly smoke at work, quit on the weekend, so you have a few days to adjust to the change. T = Tell family, friends, and co-workers that you plan to quit. Let your friends and family in on your plan to quit smoking and tell them you need their support and encouragement to stop. Look for a quit stefania who wants to stop smoking as well. You can help each other get through the rough times. A = Anticipate and plan for the challenges you'll face while quitting. Most people who begin smoking again do so within the first 3 months. You can help yourself make it through by preparing ahead for common challenges, such as nicotine withdrawal and cigarette cravings. R = Remove cigarettes and other tobacco products from your home, car, and work. Throw away all your cigarettes (no emergency pack!), lighters, ashtrays, and matches. Wash your clothes and freshen up anything that smells like smoke. Shampoo your car, clean your drapes and carpet, and steam your furniture. T = Talk to your doctor about getting help to quit. Your doctor can prescribe medication to help with withdrawal and suggest other alternatives. If you can't see a doctor, you can get many products over the counter at your local pharmacy or grocery store, including the nicotine patch, nicotine lozenges, and nicotine gum. Resources for Quitting Smoking: <https://www.[place].gov/documents/[facility]/Quit_Tobacco_Resources_for_patients_313 480_7.pdf> Supplementation: Take recommended dosages of Vitamin D and Calcium to help fortify your bones and help them to heal. See your health maintenance packet for dosages and recommended levels. DVT/VTE prophylaxis: You will be given compression stockings from the hospital. Wear these daily for the first two weeks after surgery. You may take them off at night. You may be prescribed a medication to help thin your blood. Take this as directed. If you are not prescribed this medication, early and frequent ambulation has been shown to be the best prophylaxis to deep vein thrombosis and sequelae related to this event. Procedures: Bilateral hemilaminotomy partial medial facetectomy, foraminotomy with microdiscectomy Patient Condition at Discharge: Good Plan - Discharge Summary Discharge Rx Participant: No New Discharge Prescriptions: New HYDROcodone/APAP 7.5-325MG [[place] 7.5] 1 each PO Q4HR PRN #42 tab PRN Reason: Pain Sennosides/Docusate Sodium [Senna-S 8.6-50 mg Tablet] 1 each PO DAILY PRN #30 tablet PRN Reason: Constipation cefaDROXiL [Duricef] 500 mg PO Q12HR 5 Days #10 cap Cyclobenzaprine [Flexeril] 5 mg PO BID PRN #30 tablet PRN Reason: Muscle Spasm No Action Gabapentin [Neurontin] 300 mg PO TID Vortioxetine Hydrobromide [Trintellix] 10 mg PO DAILY Ergocalciferol [Vitamin D2 (1250 Mcg = 26891 Iu)] 1,250 mcg PO WE buPROPion XL [Wellbutrin XL] 150 mg PO DAILY Fish Oil/Dha/Epa [Fish Oil 1,200 mg Fish Oil] 1 each PO DAILY Discharge Medication List Ergocalciferol [Vitamin D2 (1250 Mcg = 67793 Iu)] 1,250 mcg PO WE 11/24/20 [History] Fish Oil/Dha/Epa [Fish Oil 1,200 mg Fish Oil] 1 each PO DAILY 09/17/22 [History] Gabapentin [Neurontin] 300 mg PO TID 09/17/22 [History] Vortioxetine Hydrobromide [Trintellix] 10 mg PO DAILY 09/17/22 [History] buPROPion XL [Wellbutrin XL] 150 mg PO DAILY 09/17/22 [History] Cyclobenzaprine [Flexeril] 5 mg PO BID PRN #30 tablet 09/24/22 [Rx] HYDROcodone/APAP 7.5-325MG [[place] 7.5] 1 each PO Q4HR PRN #42 tab 09/24/22 [Rx] Sennosides/Docusate Sodium [Senna-S 8.6-50 mg Tablet] 1 each PO DAILY PRN #30 tablet 09/24/22 [Rx] cefaDROXiL [Duricef] 500 mg PO Q12HR 5 Days #10 cap 09/24/22 [Rx] Follow up Appointment(s)/Referral(s): Levi Logan DO [Doctor of Osteopathic Medicine] - 2 Weeks Activity/Diet/Wound Care/Special Instructions: Spine Discharge and Recovery Instructions All medication refills should be obtained through your primary care doctor or your clinic spine surgeon. Please discuss prescription refills at your follow up appointment. Do not call the hospital for medication refills. Dressing: Leave your dressing in place for a total of 5 days post operatively. Then you may remove your dressing and leave open to air. Keep the area clean and if not able to keep area clean, then cover with sterile gauze and tape. Showering: You may shower 3 days after your procedure allowing soap and water to run over incision. Do not scrub. Do not soak. Blot dry. Follow up: Please confirm a follow up appointment with your surgeon 3 weeks post operatively. Please make an appointment to follow up with your PCP in 1-2 weeks after surgery for evaluation 3 phase, 3-week plan POST OP WEEKS 1-3 1. Lifting/carrying/pushing/pulling limited to less than 5 pounds. 2. Do not sit for longer than 15 minutes at one time. Get up and walk around. Prolonged sitting is NOT advised. If you lay down, see if you can tolerate laying down on you front (belly side) 3. Walk for periods of 15 minutes = 1 mile but no longer; do it multiple times times each day. 4. Ice your low back after activity. POST OP WEEKS 3-6 1. Lifting limited to less than 20 pounds. 2. Do not sit for longer than 30 minutes at a time. Frequently change positions. Use a sit-to stand workstation or take frequent breaks from sitting if you have returned to work. 3. Walk for 30 minutes each day. If possible, do these three or more times a day POST OP WEEKS 6+ At your 6-week appointment we will give you a physical therapy referral to focus on a core stabilization and strengthening program. You should also work on leg & buttock strengthening, hamstring & quadriceps stretching, and continue a low impact aerobic activity program such as swimming, walking, or riding a stationary bicycle. During the initial 6 weeks after your surgery, you are at the highest risk of re-injuring your spine. You should generally avoid BLTs (bending, lifting and twisting combination motions) and follow the above guidelines to reduce the chance of reinjury. You can anticipate post op appointments in our office at approximately 3 weeks and 6 weeks after your surgery. INCISION CARE: If your incision is not draining you do NOT need to cover it with a dressing. Keep your incision clean, dry and intact. In most cases, we apply skin glue, minh or sutures to the incision at the time of surgery. This will be like a crust or have the appearance of a scab and will fall off in time on its own. The stitches or minh need to be removed at 3 weeks post op appointment. You may begin to shower 3 days after surgery (this allows the glue to barrios well). However, please avoid scrubbing the incision site or peeling off any of the skin glue. This will ensure optimal healing of your incision. Also, during this time avoid soaking the incision area in water - this includes swimming pools, hot tubs or baths. No ointments, lotions or oils on the incision until your surgeon allows. Leave minh, sutures or glue in place. Neurological dysfunction that comes on suddenly can also be a sign of a stroke. Below some common symptoms of a stroke are listed: B - balance difficulty such as sudden onset walking or leaning to one side - NEW E - eye problem such as sudden double vision or trouble seeing on one side - NEW F - Facial weakness or numbness on one side - NEW A - Arm or leg weakness or numbness on one side - NEW S - Slurred speech or difficulty with word finding - NEW T - Time is BRAIN! Call 911 as soon as you recognize these symptoms Diet: Consume a regular diet rich in vegetables and lean protein such as chicken or fish. You should consume in a ratio of approximately 20% fats|40% carbohydrates|40%protein. Vegetables, sweet potatoes, brown rice or quinoa are examples of good carbohydrates. Chips, white bread, cookies and sweets/sugar are examples of bad carbohydrates. Limit your bad carbs, go wild with good carbs. "Life's Simple 7" Guidelines as per [place] [employer] These will help you reclaim your life after surgery and hoop flaring machine operator helper in your recovery, keeping in mind your restrictions. (1) Get Active. Physical activity can help people lose weight, control high blood pressure and cholesterol, feel emotionally better, and sleep better. (2) Control Cholesterol. Avoid a diet high in saturated fat, trans fat, & cholesterol. Limit whole milk & cream, ice cream, butter, egg yolks, processed meats (like sausage and hot dogs), and fatty meats. Choose healthy foods that are low in saturated fat, trans fat and cholesterol which include: Fruits and vegetables, fiber rich grain products (like whole grain pasta and brown rice), lean meat such as chicken, fish, nuts, seeds, and legumes. (3) Eat Better. Eat small portions. Shop at the grocery with a list and do not stray from it. Tips for a healthy diet include: Limit sodium intake to less than 1500mg daily, avoid prepackaged, processed, and fast foods, choose a diet rich in fruits, vegetables, and whole grain, high fiber foods, and limit saturated & cholesterol in your diet. (4) Manage Blood Pressure. If you have high blood pressure, you should have a cuff at home so that you can check your blood pressure regularly. Be sure you have a good cuff. An arm one is generally better than a wrist one. Bring the cuff to a doctor's appointment to validate that the measurements that your cuff are taking are accurate. Take your blood pressure twice daily when you are sitting down and relaxing. Record the numbers in a log and bring this log with you to your doctors' appointments. (5) Lose Weight if your BMI is above 25. A healthy BMI is between 19-25. To calculate Your BMI, you may use a Standard BMI Calculator on the NIH BMI website: <www.nhlbi.nih.gov/guidelines/obesity/BMI/bmicalc.htm>. Weigh oneself daily. If you are overweight, set a goal to lose weight. A pound a week loss if needed is a good target. (6) Reduce Blood Sugar. Limit foods and liquids with "added sugars." (Added sugars include sucrose, fructose, glucose, maltose, dextrose, high fructose corn syrup, corn syrup, concentrated fruit juice and honey). (7) Stop Smoking. If you smoke, quitting smoking is one of the best things that you can do for your health. Smoking increases your risk of heart attack, stroke, and peripheral vascular disease, which is a build-up of plaque in your arteries. Please discard all the cigarettes and lighters in your house. Have a plan for what you will do when you have the urge to smoke. Direct and second- hand smoke shortens your life as well as the lives of your family, friends and others around you. For your health and the health of those around you, please consider quitting! Proper Bending Body Mechanics: Maintain a wide stance with one foot slightly in front of the other. Keep your back straight. Bend utilizing the strength in your hips and knees. Do not bend at the waist. Maintain the lifted object at your waist-level close to your body. Avoid lifting weight that causes immediately pain or pain anywhere in the body afterwards. Smoking/Nicotine If there was ever one thing that you could do to increase your overall health, decrease your risk of cardiovascular problems by about 39% the second you make the choice, it is to STOP SMOKING. Your body's most instant gratification is the second you stop smoking. We have all heard the studies, read the articles but it is true, smoking is extremely bad for your overall health, and moreover it is detrimental to your bone health. Nicotine, IN ANY FORM, kills bone cells, prevents your body from healing fractures, and significantly prolongs healing after surgery. In spine surgery specifically, it increases your risk of not healing your bones to create a fusion and increases your risk of having a revision surgery due to this up to 60%. I know it is hard. I know it feels impossible. But there are ways. Take control of your life. We are here to help you through it. And when you are ready, ask us and we can direct you to help if you desire. Use the START Plan to Quit Smoking (please visit the [employer].org website listed below for more information): S = Set a quit date. Choose a date within the next 2 weeks, so you have enough time to prepare without losing your motivation to quit. If you mainly smoke at work, quit on the weekend, so you have a few days to adjust to the change. T = Tell family, friends, and co-workers that you plan to quit. Let your friends and family in on your plan to quit smoking and tell them you need their support and encouragement to stop. Look for a quit stefania who wants to stop smoking as well. You can help each other get through the rough times. A = Anticipate and plan for the challenges you'll face while quitting. Most people who begin smoking again do so within the first 3 months. You can help yourself make it through by preparing ahead for common challenges, such as nicotine withdrawal and cigarette cravings. R = Remove cigarettes and other tobacco products from your home, car, and work. Throw away all your cigarettes (no emergency pack!), lighters, ashtrays, and matches. Wash your clothes and freshen up anything that smells like smoke. Shampoo your car, clean your drapes and carpet, and steam your furniture. T = Talk to your doctor about getting help to quit. Your doctor can prescribe medication to help with withdrawal and suggest other alternatives. If you can't see a doctor, you can get many products over the counter at your local pharmacy or grocery store, including the nicotine patch, nicotine lozenges, and nicotine gum. Resources for Quitting Smoking: <https://www.[place].gov/documents/[facility] center/[id number]> Supplementation: Take recommended dosages of Vitamin D and Calcium to help fortify your bones and help them to heal. See your health maintenance packet for dosages and recommended levels. DVT/VTE prophylaxis: You will be given compression stockings from the hospital. Wear these daily for the first two weeks after surgery. You may take them off at night. You may be prescribed a medication to help thin your blood. Take this as directed. If you are not prescribed this medication, early and frequent ambulation has been shown to be the best prophylaxis to deep vein thrombosis and sequelae related to this event. Discharge Disposition: HOME SELF-CARE
[2022-09-29] MEDS ORDERED: ERGOCALCIFEROL 1,250 MCG (50,000 IU) CAPSULE PO SCH (15:42)
== END 2022-09-25 15:50 | disposition home or self-care (01) ==
LOC: OR 10:01 → 4SSUR 15:25 → OR 09-25 15:50
PROVIDERS: ATTEND Orthopaedic Surgery
DX: M51.27 Other intervertebral disc displacement, lumbosacral region (principal); M54.16 Radiculopathy, lumbar region; R20.2 Paresthesia of skin; M48.061 Spinal stenosis, lumbar region without neurogenic claudication
CPT/HCPCS: 97161; 81025; 86900; 86901; 86850; 72100; 36415; 63030; C1762 ×2; J2250; J0330; J1100; J2710; J0690 ×2; J2405; J3010; J1170 ×2; J2704; J2001

== ENCOUNTER → 2023-04-12 | Outpatient (CLI) | payer OTHER ==
--- NOTE | 2023-04-12 12:57 | XR ---
EXAMINATION TYPE: XR abdomen acute w cxr DATE OF EXAM: 04/12/2023 COMPARISON: None INDICATION: Upper abdominal pain TECHNIQUE: Single view abdomen frontal supine and upright views. Exam is supplemented with a frontal chest FINDINGS: There is a normal bowel gas pattern. No free air is evident. No differential air-fluid levels are toya dent. Psoas margins are normal. No organomegaly is present. Surgical clips are within the pelvis. Heart size is normal. Pulmonary vasculature is normal. Lungs are clear. IMPRESSION: 1. No acute pulmonary process. 2. No acute abdominal process
== END | disposition home or self-care (01) ==
LOC: RADXRYALE 11:35
PROVIDERS: ATTEND Nurse Practitioner Family
DX: R10.10 Upper abdominal pain, unspecified (principal)
CPT/HCPCS: 74022

== ENCOUNTER 2023-09-12 14:38 | Emergency (ER) | payer OTHER ==
--- NOTE | 2023-09-12 15:00 | ED ---
Psych HPI - General Chief Complaint: Psychiatric Symptoms Stated Complaint: mental health Time Seen by Provider: 09/12/23 14:49 Source: patient, RN notes reviewed Mode of arrival: ambulatory Limitations: no limitations - History of Present Illness Initial Comments: 33-year-old female presents emergency department chief complaint of depression, suicidal history. Patient states she has a history of bipolar disorder states that she gets very depressed and states that she wants to harm himself. She states that she was at [facility] and was sent over here for further treatment evaluation. Patient denies any significant alcohol or drug use currently. Patient did not self-harm at this point. - Related Data Home Medications Medication Instructions Recorded Confirmed Fish Oil/Dha/Epa [Fish Oil 1,200 1 cap PO DAILY 09/17/22 09/12/23 mg Fish Oil] Apple Cider Vinegar Gummies 1 tab PO Q2D 09/12/23 09/12/23 Celecoxib [CeleBREX] 200 mg PO BID 09/12/23 09/12/23 Ferrous Sulfate [Feosol] 325 mg PO Q72H 09/12/23 09/12/23 Vitamin B Complex 1 cap PO DAILY 09/12/23 09/12/23 busPIRone HCL 15 mg PO TID 09/12/23 09/12/23 lamoTRIgine [LaMICtal] 150 mg PO HS 09/12/23 09/12/23 Allergies Allergy/AdvReac Type Severity Reaction Status Date / Time silver Allergy Rash/Hives Verified 09/12/23 15:24 [From Tegaderm AG Mesh] wheat Allergy Abdominal Verified 09/12/23 15:24 Pain/hives amoxicillin trihydrate AdvReac Abdominal Verified 09/12/23 15:24 [From Augmentin] Pain corn AdvReac Abdominal Verified 09/12/23 15:24 Pain eszopiclone [From Lunesta] AdvReac Confusion/Stroke Verified 09/12/23 15:24 like sypmtoms potassium clavulanate AdvReac Abdominal Verified 09/12/23 15:24 [From Augmentin] Pain Yeast AdvReac Unknown Verified 09/12/23 15:24 tegaderm Allergy Rash/Hives Uncoded 09/12/23 15:24 Review of Systems ROS Statement: Those systems with pertinent positive or pertinent negative responses have been documented in the HPI. ROS Other: All systems not noted in ROS Statement are negative. Past Medical History Past Medical History: Fibromyalgia, GERD/Reflux, Skin Disorder Additional Past Medical History / Comment(s): hx bowel obstruction(self resolved) pancreatitis. migraines, hx gestational diabetic, nausea/constipation/diarrhea/severe stomach cramps, "food sensitivities", ecz kourtney-dry skin, "borderline diabetic"-diet control, elevated triglycerides, frequent UTI's History of Any Multi-Drug Resistant Organisms: None Reported Past Surgical History: Section, Cholecystectomy Additional Past Surgical History / Comment(s): Dilation and Currettage Past Anesthesia/Blood Transfusion Reactions: Motion Sickness Past Psychological History: Bipolar Smoking Status: Former smoker, Vaper Past Alcohol Use History: None Reported Past Drug Use History: None Reported - Past Family History Father Additional Family Medical History / Comment(s): Hx CABG, father 2016 Mother Family Medical History: No Reported History General Exam Limitations: no limitations General appearance: alert, in no apparent distress Head exam: Present: atraumatic, normocephalic, normal inspection Eye exam: Present: normal appearance, PERRL, EOMI. Absent: scleral icterus, conjunctival injection, periorbital swelling ENT exam: Present: normal exam, normal oropharynx, mucous membranes moist Neck exam: Present: normal inspection, full ROM. Absent: tenderness, meningismus, lymphadenopathy Respiratory exam: Present: normal lung sounds bilaterally. Absent: respiratory distress, wheezes, rales, rhonchi, stridor Cardiovascular Exam: Present: regular rate, normal rhythm, normal heart sounds. Absent: systolic murmur, diastolic murmur, rubs, gallop, clicks Neurological exam: Present: alert, oriented X3, CN II-XII intact, reflexes normal. Absent: motor sensory deficit Psychiatric exam: Present: depressed Skin exam: Present: warm, dry, intact, normal color. Absent: rash Course Vital Signs 09/12/23 09/12/23 14:42 17:03 Temperature 97.8 F 97.9 F Pulse Rate 91 100 Respiratory 16 21 Rate Blood Pressure 146/87 127/83 O2 Sat by Pulse 99 100 Oximetry Medical Decision Making - Medical Decision Making Was pt. sent in by a medical professional or institution (, PA, [employer], urgent care, hospital, or residential...) When possible be specific @ -[facility] Did you speak to anyone other than the patient for history (EMS, parent, family, police, friend...)? What history was obtained from this source @ -No Did you review nursing and triage notes (agree or disagree)? Why? @ -I reviewed and agree with nursing and triage notes Were old charts reviewed (outside hosp., previous admission, EMS record, old EKG, old radiological studies, urgent care reports/EKG's, residential records)? Report findings @ -No old charts were reviewed Differential Diagnosis (chest pain, altered mental status, abdominal pain women, abdominal pain men, vaginal bleeding, weakness, fever, dyspnea, syncope, headache, dizziness, GI bleed, back pain, seizure, CVA, palpatations, mental health, musculoskeletal)? @ -Differential Mental Health Depression, anxiety, bipolar, psychosis, schizophrenia, borderline personality, situational depression, adjustment disorder, behavioral disorder, brain tumor, malingering, substance abuse, encephalopathy, medication reaction, dementia, hypothyroidism, degenerative neurologic disorder, lupus.... This is not meant to be all-inclusive list EKG interpreted by me (3pts min.). @ -None X-rays interpreted by me (1pt min.). @ -None done CT interpreted by me (1pt min.). @ -None done U/S interpreted by me (1pt. min.). @ -None done What testing was considered but not performed or refused? (CT, X-rays, U/S, labs)? Why? @ -None What meds were considered but not given or refused? Why? @ -None Did you discuss the management of the patient with other professionals (professionals i.e. , PA, [employer], lab, RT, psych nurse, social worker psychiatric, intellectual property lawyer, teacher, protection officer, case operator)? Give summary @ -Patient evaluated by EPS and case discussed with on-call psychiatrist who recommends patient to be discharged to home with a safety plan as patient states she is not suicidal and has [facility] follow-up. Was smoking cessation discussed for >3mins.? @ -No Was critical care preformed (if so, how long)? @ -No Were there social determinants of health that impacted care today? How? (Homelessness, low income, unemployed, alcoholism, drug addiction, transportation, low edu. Level, literacy, decrease access to med. care, skilled nursing, rehab)? @ -No Was there de-escalation of care discussed even if they declined (Discuss DNR or withdrawal of care, Hospice)? DNR status @ -No What co-morbidities impacted this encounter? (DM, HTN, Smoking, COPD, CAD, Cancer, CVA, ARF, Chemo, Hep., AIDS, mental health diagnosis, sleep apnea, morbid obesity)? @ -None Was patient admitted / discharged? Hospital course, mention meds given and route, prescriptions, significant lab abnormalities, going to OR and other pertinent info. @ -Discharge patient was eval by psychiatric services and psychiatry recommends patient discharged with safety plan patient denies being suicidal patient has close follow-up return plans discussed. Undiagnosed new problem with uncertain prognosis? @ -No Drug Therapy requiring intensive monitoring for toxicity (Heparin, Nitro, Insulin, Cardizem)? @ -No Were any procedures done? @ -No Diagnosis/symptom? @ -Depression Acute, or Chronic, or Acute on Chronic? @ -Acute Uncomplicated (without systemic symptoms) or Complicated (systemic symptoms)? @ -Uncomplicated Side effects of treatment? @ -No Exacerbation, Progression, or Severe Exacerbation? @ -No Poses a threat to life or bodily function? How? (Chest pain, [place], AL, pneumonia, PE, COPD, DKA, ARF, appy, cholecystitis, CVA, Diverticulitis, Homicidal, Suicidal, threat to staff... and all critical care pts) @ -No - Lab Data Lab Results 09/12/23 09/12/23 Range/Units 15:06 15:14 Urine Opiates Screen Not Detected (NotDetected) Ur Oxycodone Screen Not Detected (NotDetected) Urine Methadone Screen Not Detected (NotDetected) Ur Barbiturates Screen Not Detected (NotDetected) U Tricyclic Antidepress Not Detected (NotDetected) Ur Phencyclidine Scrn Not Detected (NotDetected) Ur Amphetamines Screen Not Detected (NotDetected) U Methamphetamines Scrn Not Detected (NotDetected) U Benzodiazepines Scrn Not Detected (NotDetected) Urine Cocaine Screen Not Detected (NotDetected) U Marijuana (THC) Screen Not Detected (NotDetected) SARS-CoV-2 (PCR) Not Detected (Not Detectd) Disposition Clinical Impression: Depression Disposition: HOME SELF-CARE Condition: Stable Instructions (If sedation given, give patient instructions): Depression (ED) Additional Instructions: Please return to the emergency department for any worsening symptoms or any other concerns Is patient prescribed a controlled substance at d/c from ED?: No Referrals: Brad Esposito MD [Primary Care Provider] - 1-2 days Time of Disposition: 16:42
[2023-09-12 15:43] LABS: Amphetamine Screen,Urine Not Detected (NotDetected); Barbiturate Screen,Urine Not Detected (NotDetected); Benzodiazepines Screen,Urine Not Detected (NotDetected); Cocaine Screen,Urine Not Detected (NotDetected); Methadone Screen, Urine Not Detected (NotDetected); Opiate Screen,Urine Not Detected (NotDetected); Oxycodone Screen, Urine Not Detected (NotDetected); Phencyclidine Screen,Urine Not Detected (NotDetected); Tricyclic Antidepressant,Urine Not Detected (NotDetected); Urn Cannabinoid Scrn Not Detected (NotDetected)
[2023-09-12 17:47] VITALS: BP 127/83; PULSE 100; RESP 21; TEMP 97.9
== END 2023-09-12 17:10 | disposition home or self-care (01) ==
LOC: EC 14:38
DX: F32.A Depression, unspecified (principal); F17.290 Nicotine dependence, other tobacco product, uncomplicated; Z88.0 Allergy status to penicillin; Z88.8 Allergy status to other drugs, medicaments and biological substances
CPT/HCPCS: 80306; 82075; 87635; 99285

== ENCOUNTER 2024-02-21 01:12 | Emergency (ER) | payer OTHER ==
[2024-02-21 01:23] VITALS: TEMP 98
--- NOTE | 2024-02-21 01:54 | ED ---
Abdominal Pain HPI - General Source: patient, RN notes reviewed Mode of arrival: ambulatory Limitations: no limitations <Vernell Escalona - Last Filed: 02/21/24 01:53> - History of Present Illness MD Complaint: abdominal pain Onset/Timin -: hour(s) Location: LUQ, LLQ Radiation: L flank Migration to: no migration Severity: severe Quality: cramping Consistency: colicky Improves With: nothing Worsens With: nothing Associated Symptoms: nausea - Related Data LMP (females 10-50): last week <Juan Baez - Last Filed: 02/28/24 09:16> - General Chief Complaint: Abdominal Pain Stated Complaint: abd pain Time Seen by Provider: 02/21/24 01:53 - History of Present Illness Initial Comments: Quick [id number] female presenting with abdominal pain x 4 hours. States the pain is in the center of her abdomen and is sharp in quality. She admits nausea, denies vomiting, fever, change in bowel or bladder habits. History of cholecystectomy, denies other abdominal surgeries. Denies (Vernell Escalona) - Related Data Home Medications Medication Instructions Recorded Confirmed Fish Oil/Dha/Epa [Fish Oil 1,200 1 cap PO DAILY 09/17/22 09/12/23 mg Fish Oil] Apple Cider Vinegar Gummies 1 tab PO Q2D 09/12/23 09/12/23 Celecoxib [CeleBREX] 200 mg PO BID 09/12/23 09/12/23 Ferrous Sulfate [Feosol] 325 mg PO Q72H 09/12/23 09/12/23 Vitamin B Complex 1 cap PO DAILY 09/12/23 09/12/23 busPIRone HCL 15 mg PO TID 09/12/23 09/12/23 lamoTRIgine [LaMICtal] 150 mg PO HS 09/12/23 09/12/23 Previous Rx's Medication Instructions Recorded Ondansetron Odt [Zofran ODT] 4 mg PO Q8HR PRN #10 tab 02/21/24 Allergies Allergy/AdvReac Type Severity Reaction Status Date / Time silver Allergy Rash/Hives Verified 02/21/24 01:20 [From Tegaderm AG Mesh] wheat Allergy Abdominal Verified 02/21/24 01:20 Pain/hives amoxicillin trihydrate AdvReac Abdominal Verified 02/21/24 01:20 [From Augmentin] Pain corn AdvReac Abdominal Verified 02/21/24 01:20 Pain eszopiclone [From Lunesta] AdvReac Confusion/Stroke Verified 02/21/24 01:20 like sypmtoms potassium clavulanate AdvReac Abdominal Verified 02/21/24 01:20 [From Augmentin] Pain Yeast AdvReac Unknown Verified 02/21/24 01:20 tegaderm Allergy Rash/Hives Uncoded 02/21/24 01:20 Review of Systems ROS Other: All systems not noted in ROS Statement are negative. <Vernell Escalona - Last Filed: 02/21/24 01:53> ROS Other: All systems not noted in ROS Statement are negative. Constitutional: Denies: fever, chills Respiratory: Denies: cough, dyspnea Cardiovascular: Denies: chest pain, palpitations Gastrointestinal: Reports: abdominal pain, nausea. Denies: vomiting, diarrhea, constipation, melena, hematochezia Genitourinary: Denies: dysuria, frequency, hematuria, abnormal menses Musculoskeletal: Denies: back pain Skin: Denies: rash Neurological: Denies: headache, weakness, numbness <Juan Baez - Last Filed: 02/28/24 09:16> ROS Statement: Those systems with pertinent positive or pertinent negative responses have been documented in the HPI. Past Medical History Past Medical History: Fibromyalgia, GERD/Reflux, Skin Disorder Additional Past Medical History / Comment(s): hx bowel obstruction(self resolved) pancreatitis. migraines, hx gestational diabetic, nausea/constipation/diarrhea/severe stomach cramps, "food sensitivities", eczema-dry skin, "borderline diabetic"-diet control, elevated triglycerides, frequent UTI's History of Any Multi-Drug Resistant Organisms: None Reported Past Surgical History: Section, Cholecystectomy Additional Past Surgical History / Comment(s): Dilation and Currettage Past Anesthesia/Blood Transfusion Reactions: Motion Sickness Past Psychological History: Bipolar Smoking Status: Former smoker, Vaper Past Alcohol Use History: None Reported Past Drug Use History: None Reported - Past Family History Father Additional Family Medical History / Comment(s): Hx CABG, father 2017 Mother Family Medical History: No Reported History <Vernell Escalona - Last Filed: 02/21/24 01:53> General Exam Limitations: no limitations <Vernell Escalona - Last Filed: 02/21/24 01:53> Limitations: no limitations General appearance: alert, in no apparent distress Head exam: Present: atraumatic, normocephalic Eye exam: Present: normal appearance. Absent: scleral icterus, conjunctival injection Neck exam: Present: normal inspection Respiratory exam: Present: normal lung sounds bilaterally. Absent: respiratory distress, wheezes, rales, rhonchi, stridor, accessory muscle use Cardiovascular Exam: Present: regular rate, normal rhythm, normal heart sounds. Absent: systolic murmur, diastolic murmur, rubs, gallop GI/Abdominal exam: Present: soft. Absent: distended, tenderness, guarding, rebound, rigid, mass, pulsatile mass Extremities exam: Present: normal inspection, normal capillary refill. Absent: pedal edema, calf tenderness Back exam: Present: normal inspection. Absent: CVA tenderness (R), CVA tenderness (L) Neurological exam: Present: alert Skin exam: Present: warm, dry, intact, normal color. Absent: rash <Juan Baez - Last Filed: 02/28/24 09:16> - General Exam Comments Initial Comments: Visual Physical Exam Vital signs reviewed General: Well-appearing, nontoxic, no acute distress. Head: Normocephalic, atraumatic Eyes: PERRLA, EOMI ENT: Airway patent Chest: Nonlabored breathing Skin: No visual rash, normal skin tone Neuro: Alert and oriented 3 Musculoskeletal: No gross abnormalities (Vernell Escalona) Course Vital Signs 02/21/24 02/21/24 02/21/24 01:20 02:45 03:07 Temperature 98 F Pulse Rate 116 H 76 66 Respiratory 18 16 16 Rate Blood Pressure 129/80 107/69 112/66 O2 Sat by Pulse 96 98 100 Oximetry 02/21/24 02/21/24 02/21/24 04:11 06:35 07:19 Temperature Pulse Rate 63 65 61 Respiratory 16 16 16 Rate Blood Pressure 106/63 92/50 102/68 O2 Sat by Pulse 97 98 98 Oximetry Medical Decision Making <Vernell Escalona - Last Filed: 02/21/24 01:53> - Lab Data Result diagrams: 02/21/24 02:18 02/21/24 03:33 <Juan Baez - Last Filed: 02/28/24 09:16> - Medical Decision Making I completed the quick note portion of this chart signed Vernell Escalona PA-C (Vernell Escalona) Patient had KUB x-ray that I interpreted as showing an air-fluid level, possible early small bowel obstruction versus ileus. No free air. The patient had CT scan of the abdomen that I interpreted as negative for acute surgical condition, possible early small bowel obstruction Was pt. sent in by a medical professional or institution (, PA, STAVE LOG CUT OFF SAW OPERATOR, urgent care, hospital, or [facility]...) When possible be specific @ -[No] Did you speak to anyone other than the patient for history (EMS, parent, family, police, friend...)? What history was obtained from this source @ -[No] Did you review nursing and triage notes (agree or disagree)? Why? @ -[I reviewed and agree with nursing and triage notes] Were old charts reviewed (outside hosp., previous admission, EMS record, old EKG, old radiological studies, urgent care reports/EKG's, [facility] records)? Report findings @ -[No old charts were reviewed] Differential Diagnosis (chest pain, altered mental status, abdominal pain women, abdominal pain men, vaginal bleeding, weakness, fever, dyspnea, syncope, headache, dizziness, GI bleed, back pain, seizure, CVA, palpatations, mental health, musculoskeletal)? @ -[Differential Abdominal Pain Women: Appendicitis, Cholecystitis, diverticulosis, ischemic bowel, pancreatitis, hepatitis, UTI, gastroenteritis, AAA, incarcerated hernia, bowel obstruction, constipation, inflammatory bowel, hepatitis, peptic ulcer disease, splenic infarction, perforated viscus, vulvitis, ovarian torsion, PID, kidney stone, placenta abruption, this is not meant to be an all-inclusive list EKG interpreted by me (3pts min.). @ -[As above] X-rays interpreted by me (1pt min.). @ -[I interpreted as above CT interpreted by me (1pt min.). @ -[I interpreted as above U/S interpreted by me (1pt. min.). @ -[None done] What testing was considered but not performed or refused? (CT, X-rays, U/S, labs)? Why? @ -[None] What meds were considered but not given or refused? Why? @ -[None] Did you discuss the management of the patient with other professionals (professionals i.e. DrLew, PA, STAVE LOG CUT OFF SAW OPERATOR, lab, RT, psych nurse, aids social worker, residential roofer, teacher, landcare officer, vocational case manager)? Give summary @ -[No] Was smoking cessation discussed for >3mins.? @ -[No] Was critical care preformed (if so, how long)? @ -[No] Were there social determinants of health that impacted care today? How? (Homelessness, low income, unemployed, alcoholism, drug addiction, transportation, low edu. Level, literacy, decrease access to med. care, custodial, rehab)? @ -[No] Was there de-escalation of care discussed even if they declined (Discuss DNR or withdrawal of care, Hospice)? DNR status @ -[No] What co-morbidities impacted this encounter? (DM, HTN, Smoking, COPD, CAD, Cancer, CVA, ARF, Chemo, Hep., AIDS, mental health diagnosis, sleep apnea, morbid obesity)? @ -[None] Was patient admitted / discharged? Hospital course, mention meds given and route, prescriptions, significant lab abnormalities, going to OR and other pertinent info. @ -[Patient is a 34-year-old woman here for abdominal pain. The patient had further workup including abdominal x-ray and then CT scan that were concerning for possible developing small bowel obstruction. The patient is reevaluated and her symptoms have improved. I discussed admission for observation versus home management. At this point the patient would prefer to go home. She understands she must return if her symptoms do not improve inside of 12 hours or immediately if she is worse in any way. Undiagnosed new problem with uncertain prognosis? @ -[No] Drug Therapy requiring intensive monitoring for toxicity (Heparin, Nitro, Insulin, Cardizem)? @ -[No] Were any procedures done? @ -[No] Diagnosis/symptom? @ -[ acute abdominal pain Ileus Acute, or Chronic, or Acute on Chronic? @ -[Acute Uncomplicated (without systemic symptoms) or Complicated (systemic symptoms)? @ -[Uncomplicated Side effects of treatment? @ -[No] Exacerbation, Progression, or Severe Exacerbation? @ -[No] Poses a threat to life or bodily function? How? (Chest pain, [place], CO, pneumonia, PE, COPD, DKA, ARF, appy, cholecystitis, CVA, Diverticulitis, Homicidal, Suicidal, threat to staff... and all critical care pts) @ -[Yes requires further follow-up on a short-term basis (Juan Baez) - Lab Data Lab Results 02/21/24 02/21/24 02/21/24 Range/Units 02:18 02:18 02:18 WBC 15.5 H (3.8-10.6) k/uL RBC 4.68 (3.80-5.40) m/uL Hgb 13.0 (11.4-16.0) gm/dL Hct 37.9 (34.0-46.0) % MCV 80.9 (80.0-100.0) fL MCH 27.8 (25.0-35.0) pg MCHC 34.4 (31.0-37.0) g/dL RDW 13.6 (11.5-15.5) % Plt Count 352 (150-450) k/uL MPV 7.8 Neutrophils % 73 % Lymphocytes % 22 % Monocytes % 2 % Eosinophils % 2 % Basophils % 0 % Neutrophils # 11.3 H (1.3-7.7) k/uL Lymphocytes # 3.5 (1.0-4.8) k/uL Monocytes # 0.3 (0-1.0) k/uL Eosinophils # 0.3 (0-0.7) k/uL Basophils # 0.1 (0-0.2) k/uL Sodium (137-145) mmol/L Potassium (3.5-5.1) mmol/L Chloride (98-107) mmol/L Carbon Dioxide (22-30) mmol/L Anion Gap mmol/L BUN (7-17) mg/dL Creatinine (0.52-1.04) mg/dL Est GFR (CKD-EPI)AfAm (>60 ml/min/1.73 sqM) Est GFR (CKD-EPI)NonAf (>60 ml/min/1.73 sqM) Glucose (74-99) mg/dL Plasma Lactic Acid Osmani (0.7-2.0) mmol/L Calcium (8.4-10.2) mg/dL Total Bilirubin (0.2-1.3) mg/dL AST (14-36) U/L ALT (4-34) U/L Alkaline Phosphatase (38-126) U/L Total Protein (6.3-8.2) g/dL Albumin (3.5-5.0) g/dL Amylase (30-110) U/L Lipase (23-300) U/L Urine Color Yellow Urine Appearance Clear (Clear) Urine pH 6.5 (5.0-8.0) Ur Specific [place] 1.023 (1.001-1.035) Urine Protein Negative (Negative) Urine Glucose (UA) Negative (Negative) Urine Ketones Negative (Negative) Urine Blood Negative (Negative) Urine Nitrite Negative (Negative) Urine Bilirubin Negative (Negative) Urine Urobilinogen <2.0 (<2.0) mg/dL Ur Leukocyte Esterase Negative (Negative) Urine HCG, Qual Not Detected (Not Detectd) 02/21/24 02/21/24 Range/Units 02:18 03:33 WBC (3.8-10.6) k/uL RBC (3.80-5.40) m/uL Hgb (11.4-16.0) gm/dL Hct (34.0-46.0) % MCV (80.0-100.0) fL MCH (25.0-35.0) pg MCHC (31.0-37.0) g/dL RDW (11.5-15.5) % Plt Count (150-450) k/uL MPV Neutrophils % % Lymphocytes % % Monocytes % % Eosinophils % % Basophils % % Neutrophils # (1.3-7.7) k/uL Lymphocytes # (1.0-4.8) k/uL Monocytes # (0-1.0) k/uL Eosinophils # (0-0.7) k/uL Basophils # (0-0.2) k/uL Sodium 138 (137-145) mmol/L Potassium 3.5 (3.5-5.1) mmol/L Chloride 98 (98-107) mmol/L Carbon Dioxide 25 (22-30) mmol/L Anion Gap 15 mmol/L BUN 11 (7-17) mg/dL Creatinine 0.79 (0.52-1.04) mg/dL Est GFR (CKD-EPI)AfAm >90 (>60 ml/min/1.73 sqM) Est GFR (CKD-EPI)NonAf >90 (>60 ml/min/1.73 sqM) Glucose 108 H (74-99) mg/dL Plasma Lactic Acid Osmani 1.0 (0.7-2.0) mmol/L Calcium 8.9 (8.4-10.2) mg/dL Total Bilirubin 0.4 (0.2-1.3) mg/dL AST 19 (14-36) U/L ALT 15 (4-34) U/L Alkaline Phosphatase 59 (38-126) U/L Total Protein 6.1 L (6.3-8.2) g/dL Albumin 3.6 (3.5-5.0) g/dL Amylase 52 (30-110) U/L Lipase 84 (23-300) U/L Urine Color Urine Appearance (Clear) Urine pH (5.0-8.0) Ur Specific [place] (1.001-1.035) Urine Protein (Negative) Urine Glucose (UA) (Negative) Urine Ketones (Negative) Urine Blood (Negative) Urine Nitrite (Negative) Urine Bilirubin (Negative) Urine Urobilinogen (<2.0) mg/dL Ur Leukocyte Esterase (Negative) Urine HCG, Qual (Not Detectd) Disposition <Vernell Escalona - Last Filed: 02/21/24 01:53> Is patient prescribed a controlled substance at d/c from ED?: No <Juan Baez - Last Filed: 02/28/24 09:16> Clinical Impression: Abdominal pain, Ileus Disposition: HOME SELF-CARE Condition: Good Instructions (If sedation given, give patient instructions): Abdominal Pain (ED), Ileus (ED) Prescriptions: Ondansetron Odt [Zofran ODT] 4 mg PO Q8HR PRN #10 tab PRN Reason: Nausea Referrals: Nonstaff,Physician [REFERRING] - 1-2 days
[2024-02-21 02:39] LABS: Basophils # (A) 0.1 k/uL (0-0.2); Basophils % (A) 0 %; Eosinophils # (A) 0.3 k/uL (0-0.7); Eosinophils % (A) 2 %; HCT 37.9 % (34.0-46.0); Lymphocytes # (A) 3.5 k/uL (1.0-4.8); Lymphocytes % (A) 22 %; MCH 27.8 pg (25.0-35.0); MCHC 34.4 g/dL (31.0-37.0); MCV 80.9 fL (80.0-100.0); Mean Platelet Volume 7.8; Monocytes # (A) 0.3 k/uL (0-1.0); Monocytes % (A) 2 %; Neutrophils # (A) 11.3 k/uL (1.3-7.7); Neutrophils % (A) 73 %; Platelet Count 352 k/uL (150-450); RBC 4.68 m/uL (3.80-5.40); RDW 13.6 % (11.5-15.5); WBC 15.5 k/uL (3.8-10.6)
[2024-02-21] MEDS: KETOROLAC 15 MG/ML 1 ML VIAL IVP STA (03:01)
[2024-02-21] MEDS: ONDANSETRON 4 MG/2 ML VIAL IVP STA (03:01)
[2024-02-21] MEDS: SODIUM CHLORIDE 0.9% 500 ML 500 ML IV STA (03:01)
[2024-02-21 03:08] VITALS: RESP 16
--- NOTE | 2024-02-21 03:29 | XR ---
EXAM: XR Abdomen, 1 View CLINICAL HISTORY: abdominal pain for 3 hours. History of blockage in the past. TECHNIQUE: Frontal supine view of the abdomen/pelvis. COMPARISON: 04/12/23 FINDINGS: Gastrointestinal tract: Short segment of dilated small bowel of right upper pelvis measures about 3.5 cm maximal diameter with air-fluid level may suggest focal ileus. Moderate amount of stool in the colon. Organs: Cholecystectomy clips are again noted. Bones/joints: No acute findings. Others: Bilateral tubal ligation clips. IMPRESSION: Short segment of dilated small bowel of right upper pelvis measures about 3.5 cm maximal diameter with air-fluid level may suggest focal ileus.
[2024-02-21 04:23] LABS: ALT 15 U/L (4-34); AST 19 U/L (14-36); African American GFR (CKD) >90 (>60 ml/min/1.73 sqM); Albumin 3.6 g/dL (3.5-5.0); Alkaline Phosphatase 59 U/L (38-126); Amylase 52 U/L (30-110); Blood Urea Nitrogen 11 mg/dL (7-17); Calcium 8.9 mg/dL (8.4-10.2); Carbon Dioxide 25 mmol/L (22-30); Chloride 98 mmol/L (98-107); Glucose 108 mg/dL (74-99); Lipase 84 U/L (23-300); Non-African American GFR(CKD) >90 (>60 ml/min/1.73 sqM); Potassium 3.5 mmol/L (3.5-5.1); Total Bilirubin 0.4 mg/dL (0.2-1.3); Total Protein 6.1 g/dL (6.3-8.2)
[2024-02-21 04:37] LABS: Anion Gap 15 mmol/L; Sodium 138 mmol/L (137-145)
[2024-02-21 05:06] LABS: Appearance,Urine Clear (Clear); Bilirubin,Urine Negative (Negative); Blood,Urine Negative (Negative); Color,Urine Yellow; Glucose,Urine (UA) Negative (Negative); Ketones,Urine Negative (Negative); Leukocyte Esterase,Urine Negative (Negative); Nitrite,Urine Negative (Negative); PH, Urine 6.5 (5.0-8.0); Protein,Urine Negative (Negative); Specific Gravity,Urine 1.023 (1.001-1.035); Urobilinogen,Urine <2.0 mg/dL (<2.0)
--- NOTE | 2024-02-21 05:21 | CT ---
EXAM: CT Abdomen and Pelvis Without Intravenous Contrast CLINICAL HISTORY: Possible ileus seen on KUB. L abdominal pain TECHNIQUE: Axial computed tomography images of the abdomen and pelvis without intravenous contrast. CTDI is 6.9 mGy and DLP is 375.2 mGy-cm. This CT exam was performed using one or more of the following dose reduction techniques: automated exposure control, adjustment of the mA and/or kV according to patient size, and/or use of iterative reconstruction technique. Coronal and sagittal reformatted images were created and reviewed. 452 images COMPARISON: KUB from today FINDINGS: Lung bases: Unremarkable. No mass. No consolidation. ABDOMEN: Liver: Unremarkable. Gallbladder and bile ducts: Unremarkable. No calcified stones. No ductal dilation. Pancreas: Unremarkable. No ductal dilation. Spleen: Unremarkable. No splenomegaly. Adrenals: Unremarkable. No mass. Kidneys and ureters: Unremarkable. No obstructing stones. No hydronephrosis. Stomach and bowel: Short segments of small bowel of right mid abdomen and central upper pelvis are dilated to 3.2 cm with small bowel feces sign, without significant wall thickening, best seen on series 201 images 50-80, and series 202 images 30-50, suggest ileus versus obstruction. PELVIS: Appendix: Normal appendix. Bladder: Unremarkable. No stones. Reproductive: bilateral tubal ligation clips. ABDOMEN and PELVIS: Intraperitoneal space: Unremarkable. No free air. No significant fluid collection. Bones/joints: Advanced degenerative disease at L5-S1. Soft tissues: Unremarkable. Vasculature: Unremarkable. No abdominal aortic aneurysm. Lymph nodes: Unremarkable. No enlarged lymph nodes. IMPRESSION: Short segments of small bowel of right mid abdomen and central upper pelvis are dilated to 3.2 cm with small bowel feces sign, without significant wall thickening, suggest ileus versus obstruction.
[2024-02-21 07:22] VITALS: BP 102/68; PULSE 61
== END 2024-02-21 07:29 | disposition home or self-care (01) ==
LOC: EC 01:12
CPT/HCPCS: 36415; 74018; 74176; 80053; 81003; 81025; 82150; 83605; 83690; 85025; 96374; 96375; 99284

== ENCOUNTER 2024-04-02 15:24 | Emergency (ER) | payer OTHER ==
--- NOTE | 2024-04-02 15:59 | ED ---
Abdominal Pain HPI - General Chief Complaint: Abdominal Pain Stated Complaint: Abdominal Pain Time Seen by Provider: 04/02/24 15:38 Source: patient, RN notes reviewed Mode of arrival: ambulatory Limitations: no limitations - History of Present Illness Initial Comments: 34-year-old female since emergency room chief complaint of diffuse abdominal pain that is most severe over the left mid abdomen and constipation over the past few weeks. Patient was evaluated by her primary care provider today and instructed to report to the emergency department for further evaluation due to tenderness on abdominal examination. She is unaware of when her last bowel movement was. Pay states that she has a history of small bowel obstruction where she admitted to the hospital for a few days where she was slowly progressed to clear liquids and discharged home. Previous surgical abdominal history of cholecystectomy. She denies urinary symptoms. History of tubal ligation. - Related Data Home Medications Medication Instructions Recorded Confirmed lamoTRIgine [LaMICtal] 150 mg PO BID 09/12/23 04/02/24 Gabapentin [Neurontin] 100 mg PO TID PRN 04/02/24 04/02/24 Loratadine 10 mg PO DAILY PRN 04/02/24 04/02/24 Meloxicam [Mobic] 15 mg PO HS 04/02/24 04/02/24 busPIRone HCL [Buspar] 30 mg PO BID 04/02/24 04/02/24 Previous Rx's Medication Instructions Recorded Ondansetron Odt [Zofran ODT] 4 mg PO Q8HR PRN #10 tab 02/21/24 Ciprofloxacin HCl [Cipro] 500 mg PO Q12HR #9 tablet 04/02/24 Ondansetron Odt [Zofran Odt] 4 mg PO Q8HR PRN #10 tab 04/02/24 metroNIDAZOLE [Flagyl] 500 mg PO TID #14 tab 04/02/24 Allergies Allergy/AdvReac Type Severity Reaction Status Date / Time silver Allergy Rash/Hives Verified 04/02/24 17:36 [From Tegaderm AG Mesh] wheat Allergy Abdominal Verified 04/02/24 17:36 Pain/hives amoxicillin trihydrate AdvReac Abdominal Verified 04/02/24 17:36 [From Augmentin] Pain corn AdvReac Abdominal Verified 04/02/24 17:36 Pain eszopiclone [From Lunesta] AdvReac Confusion/Stroke Verified 04/02/24 17:36 like sypmtoms potassium clavulanate AdvReac Abdominal Verified 04/02/24 17:36 [From Augmentin] Pain Yeast AdvReac Unknown Verified 04/02/24 17:36 tegaderm Allergy Rash/Hives Uncoded 04/02/24 17:36 Review of Systems ROS Statement: Those systems with pertinent positive or pertinent negative responses have been documented in the HPI. ROS Other: All systems not noted in ROS Statement are negative. Past Medical History Past Medical History: Fibromyalgia, GERD/Reflux, Skin Disorder Additional Past Medical History / Comment(s): hx bowel obstruction(self resolved) pancreatitis. migraines, hx gestational diabetic, nausea/consti pation/diarrhea/severe stomach cramps, "food sensitivities", eczema-dry skin, "borderline diabetic"-diet control, elevated triglycerides, frequent UTI's History of Any Multi-Drug Resistant Organisms: None Reported Past Surgical History: Section, Cholecystectomy Additional Past Surgical History / Comment(s): Dilation and Currettage Past Anesthesia/Blood Transfusion Reactions: Motion Sickness Past Psychological History: Bipolar Smoking Status: Former smoker, Vaper Past Alcohol Use History: None Reported Past Drug Use History: None Reported - Past Family History Father Additional Family Medical History / Comment(s): Hx CABG, father 2016 Mother Family Medical History: No Reported History General Exam Limitations: no limitations General appearance: alert, in no apparent distress Eye exam: Present: normal appearance, PERRL, EOMI. Absent: scleral icterus, conjunctival injection, periorbital swelling ENT exam: Present: normal exam, mucous membranes moist Neck exam: Present: normal inspection. Absent: tenderness, meningismus, lymphadenopathy Respiratory exam: Present: normal lung sounds bilaterally. Absent: respiratory distress, wheezes, rales, rhonchi, stridor Cardiovascular Exam: Present: regular rate, normal rhythm, normal heart sounds. Absent: systolic murmur, diastolic murmur, rubs, gallop, clicks GI/Abdominal exam: Present: soft, tenderness (left mid abodmen), normal bowel sounds. Absent: distended, guarding, rebound, rigid Extremities exam: Present: normal inspection, full ROM, normal capillary refill. Absent: tenderness, pedal edema, joint swelling, calf tenderness Back exam: Present: normal inspection Skin exam: Present: warm, dry, intact, normal color. Absent: rash Course Vital Signs 04/02/24 04/02/24 04/02/24 15:31 18:34 19:36 Temperature 98.9 F 98.1 F Pulse Rate 85 89 65 Respiratory 16 18 18 Rate Blood Pressure 108/72 106/68 92/62 O2 Sat by Pulse 97 100 99 Oximetry Medical Decision Making - Medical Decision Making Was pt. sent in by a medical professional or institution (, PA, CALL CENTER RN, urgent care, hospital, or care home...) When possible be specific @ -Patient is advised by her primary care provider to report to the emergency ro om for further evaluation of abdominal pain and physical exam findings concerning for abdominal pain. Did you speak to anyone other than the patient for history (EMS, parent, family, police, friend...)? What history was obtained from this source @ -No Did you review nursing and triage notes (agree or disagree)? Why? @ -I reviewed and agree with nursing and triage notes Were old charts reviewed (outside hosp., previous admission, EMS record, old EKG, old radiological studies, urgent care reports/EKG's, care home records)? Report findings @ -No old charts were reviewed Differential Diagnosis (chest pain, altered mental status, abdominal pain women, abdominal pain men, vaginal bleeding, weakness, fever, dyspnea, syncope, headache, dizziness, GI bleed, back pain, seizure, CVA, palpatations, mental health, musculoskeletal)? @ -Differential Abdominal Pain Women: Appendicitis, Cholecystitis, diverticulosis, ischemic bowel, pancreatitis, hepatitis, UTI, gastroenteritis, AAA, incarcerated hernia, bowel obstruction, constipation, inflammatory bowel, hepatitis, peptic ulcer disease, splenic infarction, perforated viscus, vulvitis, ovarian torsion, PID, kidney stone, placenta abruption, this is not meant to be an all-inclusive list EKG interpreted by me (3pts min.). @ -none X-rays interpreted by me (1pt min.). @ -None done CT interpreted by me (1pt min.). @ -CT of the abdomen and pelvis with IV contrast remarkable for a prominent jejunal fold thickening throughout the left side of the abdomen with some segments of mild colonic wall thickening and mucosal hyperemia correlate for inflammatory enterocolitis. U/S interpreted by me (1pt. min.). @ -None done What testing was considered but not performed or refused? (CT, X-rays, U/S, labs)? Why? @ -None What meds were considered but not given or refused? Why? @ -None Did you discuss the management of the patient with other professionals (professionals i.e. , PA, CALL CENTER RN, lab, RT, psych nurse, social welfare research worker, gun fertilizer, teacher, ship's officer, case mgr)? Give summary @ -No Was smoking cessation discussed for >3mins.? @ -No Was critical care preformed (if so, how long)? @ -No Were there social determinants of health that impacted care today? How? (Homelessness, low income, unemployed, alcoholism, drug addiction, transportation, low edu. Level, literacy, decrease access to med. care, senior care, rehab)? @ -No Was there de-escalation of care discussed even if they declined (Discuss DNR or withdrawal of care, Hospice)? DNR status @ -No What co-morbidities impacted this encounter? (DM, HTN, Smoking, COPD, CAD, Cancer, CVA, ARF, Chemo, Hep., AIDS, mental health diagnosis, sleep apnea, morbid obesity)? @ -None Was patient admitted / discharged? Hospital course, mention meds given and route, prescriptions, significant lab abnormalities, going to OR and other pertinent info. @ -discharged. 34-year-old female with abdominal pain and constipation. On my evaluation the patient she is resting company no signs acute distress. Her vitals are stable. Have left-sided abdominal pain to palpation She is noted with mild rebound tenderness. No signs of rigidity. Patient is symptomatically treated with antiemetics pending laboratory results and CT imaging. Patient is offered pain medication however she has declined at this time. lab studies including CBC, CMP, urinalysis grossly within normal limits. CT scan concerning for colonic wall thickening and mucosal hyperemia, inflammatory enterocolitis. With CT managing findings patient will be treated with antibiotics with concern for intra-abdominal infection with Flagyl and Augmentin and instructed follow-up with her primary care provider as well for further evaluation. Patient provided with initial dose of antibiotics Emergency Department full course of sent to her pharmacy. All questions answered at bedside and strict return parameters have been discussed with the patient she is verbalized understanding. Patient is also been sent a prescription for Zofran to take as needed for nausea. Case discussed with my attending Dr. Du Undiagnosed new problem with uncertain prognosis? @ -No Drug Therapy requiring intensive monitoring for toxicity (Heparin, Nitro, Insulin, Cardizem)? @ -No Were any procedures done? @ -No Diagnosis/symptom? @ - abdominal pain, enterocolitis Acute, or Chronic, or Acute on Chronic? @ -Acute Uncomplicated (without systemic symptoms) or Complicated (systemic symptoms)? @ -uncomplicated Side effects of treatment? @ -No Exacerbation, Progression, or Severe Exacerbation? @ -No Poses a threat to life or bodily function? How? (Chest pain, [place], [place], pneumonia, PE, COPD, DKA, ARF, appy, cholecystitis, CVA, Diverticulitis, Homicidal, Suicidal, threat to staff... and all critical care pts) @ -No - Lab Data Result diagrams: 04/02/24 16:13 04/02/24 16:13 Lab Results 04/02/24 04/02/24 04/02/24 Range/Units 16:13 16:13 16:13 WBC 5.5 (3.8-10.6) k/uL RBC 4.33 (3.80-5.40) m/uL Hgb 11.9 (11.4-16.0) gm/dL Hct 36.3 (34.0-46.0) % MCV 83.7 (80.0-100.0) fL MCH 27.6 (25.0-35.0) pg MCHC 32.9 (31.0-37.0) g/dL RDW 12.8 (11.5-15.5) % Plt Count 267 (150-450) k/uL MPV 7.5 Neutrophils % 50 % Lymphocytes % 41 % Monocytes % 4 % Eosinophils % 2 % Basophils % 1 % Neutrophils # 2.7 (1.3-7.7) k/uL Lymphocytes # 2.2 (1.0-4.8) k/uL Monocytes # 0.2 (0-1.0) k/uL Eosinophils # 0.1 (0-0.7) k/uL Basophils # 0.0 (0-0.2) k/uL Sodium 138 (137-145) mmol/L Potassium 3.8 (3.5-5.1) mmol/L Chloride 110 H (98-107) mmol/L Carbon Dioxide 27 (22-30) mmol/L Anion Gap 1 mmol/L BUN 7 (7-17) mg/dL Creatinine 0.56 (0.52-1.04) mg/dL Est GFR (CKD-EPI)AfAm >90 (>60 ml/min/1.73 sqM) Est GFR (CKD-EPI)NonAf >90 (>60 ml/min/1.73 sqM) Glucose 88 (74-99) mg/dL Plasma Lactic Acid Osmani 0.8 (0.7-2.0) mmol/L Calcium 8.9 (8.4-10.2) mg/dL Total Bilirubin 0.4 (0.2-1.3) mg/dL AST 18 (14-36) U/L ALT 13 (4-34) U/L Alkaline Phosphatase 57 (38-126) U/L Total Protein 6.5 (6.3-8.2) g/dL Albumin 4.0 (3.5-5.0) g/dL Amylase 56 (30-110) U/L Lipase 94 (23-300) U/L Urine Color Urine Appearance (Clear) Urine pH (5.0-8.0) Ur Specific [place] (1.001-1.035) Urine Protein (Negative) Urine Glucose (UA) (Negative) Urine Ketones (Negative) Urine Blood (Negative) Urine Nitrite (Negative) Urine Bilirubin (Negative) Urine Urobilinogen (<2.0) mg/dL Ur Leukocyte Esterase (Negative) 04/02/24 Range/Units 16:14 WBC (3.8-10.6) k/uL RBC (3.80-5.40) m/uL Hgb (11.4-16.0) gm/dL Hct (34.0-46.0) % MCV (80.0-100.0) fL MCH (25.0-35.0) pg MCHC (31.0-37.0) g/dL RDW (11.5-15.5) % Plt Count (150-450) k/uL MPV Neutrophils % % Lymphocytes % % Monocytes % % Eosinophils % % Basophils % % Neutrophils # (1.3-7.7) k/uL Lymphocytes # (1.0-4.8) k/uL Monocytes # (0-1.0) k/uL Eosinophils # (0-0.7) k/uL Basophils # (0-0.2) k/uL Sodium (137-145) mmol/L Potassium (3.5-5.1) mmol/L Chloride (98-107) mmol/L Carbon Dioxide (22-30) mmol/L Anion Gap mmol/L BUN (7-17) mg/dL Creatinine (0.52-1.04) mg/dL Est GFR (CKD-EPI)AfAm (>60 ml/min/1.73 sqM) Est GFR (CKD-EPI)NonAf (>60 ml/min/1.73 sqM) Glucose (74-99) mg/dL Plasma Lactic Acid Osmani (0.7-2.0) mmol/L Calcium (8.4-10.2) mg/dL Total Bilirubin (0.2-1.3) mg/dL AST (14-36) U/L ALT (4-34) U/L Alkaline Phosphatase (38-126) U/L Total Protein (6.3-8.2) g/dL Albumin (3.5-5.0) g/dL Amylase (30-110) U/L Lipase (23-300) U/L Urine Color Light Yellow Urine Appearance Clear (Clear) Urine pH 8.5 H (5.0-8.0) Ur Specific [place] 1.018 (1.001-1.035) Urine Protein Negative (Negative) Urine Glucose (UA) Negative (Negative) Urine Ketones Negative (Negative) Urine Blood Negative (Negative) Urine Nitrite Negative (Negative) Urine Bilirubin Negative (Negative) Urine Urobilinogen <2.0 (<2.0) mg/dL Ur Leukocyte Esterase Negative (Negative) Disposition Clinical Impression: Enterocolitis Disposition: HOME SELF-CARE Condition: Good Instructions (If sedation given, give patient instructions): Colitis (ED) Additional Instructions: Please return to the Emergency Department if symptoms worsen or any other concerns. Complete full course of both antibiotics as prescribed. Use Zofran as needed. Follow-up with your primary care provider within a week for further evaluation as well. Prescriptions: Ciprofloxacin HCl [Cipro] 500 mg PO Q12HR #9 tablet metroNIDAZOLE [Flagyl] 500 mg PO TID #14 tab Ondansetron Odt [Zofran Odt] 4 mg PO Q8HR PRN #10 tab PRN Reason: Nausea Is patient prescribed a controlled substance at d/c from ED?: No Referrals: Brad Esposito MD [REFERRING] - 1-2 days Time of Disposition: 19:14
[2024-04-02] MEDS: ONDANSETRON 4 MG/2 ML VIAL IVP STA ×2 (16:23→19:00)
[2024-04-02 16:34] LABS: ALT 13 U/L (4-34); AST 18 U/L (14-36); African American GFR (CKD) >90 (>60 ml/min/1.73 sqM); Alkaline Phosphatase 57 U/L (38-126); Amylase 56 U/L (30-110); Anion Gap 1 mmol/L; Blood Urea Nitrogen 7 mg/dL (7-17); Calcium 8.9 mg/dL (8.4-10.2); Carbon Dioxide 27 mmol/L (22-30); Chloride 110 mmol/L (98-107); Glucose 88 mg/dL (74-99); Lipase 94 U/L (23-300); Non-African American GFR(CKD) >90 (>60 ml/min/1.73 sqM); Potassium 3.8 mmol/L (3.5-5.1); Sodium 138 mmol/L (137-145); Total Bilirubin 0.4 mg/dL (0.2-1.3); Total Protein 6.5 g/dL (6.3-8.2)
[2024-04-02 16:35] LABS: Basophils % (A) 1 %; Eosinophils # (A) 0.1 k/uL (0-0.7); Eosinophils % (A) 2 %; HCT 36.3 % (34.0-46.0); HGB 11.9 gm/dL (11.4-16.0); Lymphocytes # (A) 2.2 k/uL (1.0-4.8); Lymphocytes % (A) 41 %; MCH 27.6 pg (25.0-35.0); MCHC 32.9 g/dL (31.0-37.0); MCV 83.7 fL (80.0-100.0); Mean Platelet Volume 7.5; Monocytes # (A) 0.2 k/uL (0-1.0); Monocytes % (A) 4 %; Neutrophils # (A) 2.7 k/uL (1.3-7.7); Neutrophils % (A) 50 %; Platelet Count 267 k/uL (150-450); RBC 4.33 m/uL (3.80-5.40); RDW 12.8 % (11.5-15.5); WBC 5.5 k/uL (3.8-10.6)
[2024-04-02 17:45] LABS: Appearance,Urine Clear (Clear); Bilirubin,Urine Negative (Negative); Blood,Urine Negative (Negative); Color,Urine Light Yellow; Glucose,Urine (UA) Negative (Negative); Ketones,Urine Negative (Negative); Leukocyte Esterase,Urine Negative (Negative); Nitrite,Urine Negative (Negative); PH, Urine 8.5 (5.0-8.0); Protein,Urine Negative (Negative); Specific Gravity,Urine 1.018 (1.001-1.035); Urobilinogen,Urine <2.0 mg/dL (<2.0)
[2024-04-02 18:44] VITALS: RESP 18; TEMP 98.1
--- NOTE | 2024-04-02 18:54 | CT ---
EXAMINATION TYPE: CT abdomen pelvis w con DATE OF EXAM: 04/02/2024 COMPARISON: 02/21/2024 HISTORY: 34-year-old female LLQ abdominal pain, constipation, history of small bowel obstruction. TECHNIQUE: Contiguous axial scanning of the abdomen and pelvis following administration of 100 ml Iso yoan 300 IV contrast. Delayed images through the kidneys and coronal/sagittal reconstructions perform ed. CT DLP: 600.9 mGycm Automated exposure control for dose reduction was used. FINDINGS: The heart is normal size without pericardial effusion. Lung bases clear without pleural effusion. There is some focal fat along the anterior fossa from ligament. Portal venous system is patent. No bi liary ductal dilatation. Cholecystectomy clips. Adrenal glands, kidneys, spleen, and pancreas within normal limits. No dilated small bowel, free fluid, or free air. However, some prominent jejunal wall thickening is n oted throughout the left side of the abdomen and there is some mucosal hyperemia throughout segments of the colon especially the cecum and ascending colon. Scattered mild stool burden. Bladder collapsed. Uterus anteverted. Bilateral tubal ligation clips. Follicular changes in the ovari es. There is trace pelvic free fluid likely physiologic. Numerous pelvic phleboliths. No pelvic adeno kiki seen. Bones: Moderate degenerative disc disease L5-S1 with some facet arthropathy lower lumbar spine. IMPRESSION: 1. PROMINENT JEJUNAL FOLD THICKENING THROUGHOUT THE LEFT SIDE THE ABDOMEN. SOME SEGMENTS OF MILD COLO CARYN WALL THICKENING AND MUCOSAL HYPEREMIA ALSO PRESENT, ESPECIALLY ALONG THE ASCENDING COLON. CORRELA TE FOR INFECTIOUS OR INFLAMMATORY ENTEROCOLITIS. 2. TRACE PELVIC FREE FLUID LIKELY PHYSIOLOGIC. [facility], , 04/02/2024 6:52 PM
[2024-04-02] MEDS: metroNIDAZOLE 500 MG TAB PO STA (19:30)
[2024-04-02] MEDS: CIPROFLOXACIN HCL 500 MG TAB PO STA (19:30)
[2024-04-02] MEDS: ONDANSETRON 4 MG ODT STARTER PACK 2 TAB BTL PO STA (19:31)
[2024-04-02 19:38] VITALS: BP 92/62; PULSE 65
== END 2024-04-02 19:36 | disposition home or self-care (01) ==
LOC: EC 15:24
CPT/HCPCS: 36415; 74177; 80053; 81003; 82150; 83605; 83690; 85025; 96374; 96376; 99284

== ENCOUNTER 2024-04-14 21:00 | Emergency (ER) | payer OTHER ==
--- NOTE | 2024-04-14 22:16 | ED ---
Dizziness HPI - General Chief Complaint: Dizziness Stated Complaint: Dizziness, Weakness, Back Pain Time Seen by Provider: 04/14/24 21:18 Source: patient, RN notes reviewed Mode of arrival: ambulatory Limitations: no limitations - History of Present Illness Initial Comments: This is a 34-year-old female presenting to the emergency department with multipl e complaints. Patient states that she has chronic back pain and abdominal pain. Additionally, states that she has been experiencing intermittent dizziness over the past few months. She states that this does not feel like a room spinning sensation and denies feeling lightheaded, states that she "cannot describe how this feels ". She is unaware of any alleviating or precipitating factors of the dizziness. She denies blurry, double vision, difficulty breathing, shortness of breath, chest pain. - Related Data Home Medications Medication Instructions Recorded Confirmed lamoTRIgine [LaMICtal] 150 mg PO BID 09/12/23 04/02/24 Gabapentin [Neurontin] 100 mg PO TID PRN 04/02/24 04/02/24 Loratadine 10 mg PO DAILY PRN 04/02/24 04/02/24 Meloxicam [Mobic] 15 mg PO HS 04/02/24 04/02/24 busPIRone HCL [Buspar] 30 mg PO BID 04/02/24 04/02/24 Previous Rx's Medication Instructions Recorded Ondansetron Odt [Zofran ODT] 4 mg PO Q8HR PRN #10 tab 02/21/24 Ciprofloxacin HCl [Cipro] 500 mg PO Q12HR #9 tablet 04/02/24 Ondansetron Odt [Zofran Odt] 4 mg PO Q8HR PRN #10 tab 04/02/24 metroNIDAZOLE [Flagyl] 500 mg PO TID #14 tab 04/02/24 Meclizine [Antivert] 25 mg PO TID PRN #15 tab 04/15/24 Allergies Allergy/AdvReac Type Severity Reaction Status Date / Time silver Allergy Rash/Hives Verified 04/02/24 17:36 [From Tegaderm AG Mesh] wheat Allergy Abdominal Verified 04/02/24 17:36 Pain/hives amoxicillin trihydrate AdvReac Abdominal Verified 04/02/24 17:36 [From Augmentin] Pain corn AdvReac Abdominal Verified 04/02/24 17:36 Pain eszopiclone [From Lunesta] AdvReac Confusion/Stroke Verified 04/02/24 17:36 like sypmtoms potassium clavulanate AdvReac Abdominal Verified 04/02/24 17:36 [From Augmentin] Pain Yeast AdvReac Unknown Verified 04/02/24 17:36 tegaderm Allergy Rash/Hives Uncoded 04/02/24 17:36 Review of Systems ROS Statement: Those systems with pertinent positive or pertinent negative responses have been documented in the HPI. ROS Other: All systems not noted in ROS Statement are negative. Past Medical History Past Medical History: Fibromyalgia, GERD/Reflux, Skin Disorder Additional Past Medical History / Comment(s): hx bowel obstruction(self resolved) pancreatitis. migraines, hx gestational diabetic, nausea/constipation/diarrhea/severe stomach cramps, "food sensitivities", eczema-dry skin, "borderline diabetic"-diet control, elevated triglycerides, frequent UTI's History of Any Multi-Drug Resistant Organisms: None Reported Past Surgical History: Section, Cholecystectomy Additional Past Surgical History / Comment(s): Dilation and Currettage Past Anesthesia/Blood Transfusion Reactions: Motion Sickness Past Psychological History: Anxiety, Bipolar, Depression Smoking Status: Former smoker, Vaper Past Alcohol Use History: Occasional Past Drug Use History: None Reported - Past Family History Father Additional Family Medical History / Comment(s): Hx CABG, father 2016 Mother Family Medical History: No Reported History General Exam Limitations: no limitations General appearance: alert, in no apparent distress Eye exam: Present: normal appearance, PERRL, EOMI. Absent: scleral icterus, conjunctival injection, periorbital swelling ENT exam: Present: normal exam, mucous membranes moist Neck exam: Present: normal inspection. Absent: tenderness, meningismus, lymphadenopathy Respiratory exam: Present: normal lung sounds bilaterally. Absent: respiratory distress, wheezes, rales, rhonchi, stridor Cardiovascular Exam: Present: regular rate, normal rhythm, normal heart sounds. Absent: systolic murmur, diastolic murmur, rubs, gallop, clicks GI/Abdominal exam: Present: soft, normal bowel sounds. Absent: distended, tenderness, guarding, rebound, rigid Extremities exam: Present: normal inspection, full ROM, normal capillary refill. Absent: tenderness, pedal edema, joint swelling, calf tenderness Back exam: Present: normal inspection Neurological exam: Present: alert, oriented X3, CN II-XII intact Course Vital Signs 04/14/24 04/14/24 04/14/24 21:02 22:00 23:00 Temperature 98.3 F Pulse Rate 82 74 84 Respiratory 20 16 16 Rate Blood Pressure 125/81 110/81 119/93 O2 Sat by Pulse 100 99 99 Oximetry 04/15/24 04/15/24 00:00 01:10 EDT Temperature 98.1 F Pulse Rate 84 63 Respiratory 16 18 Rate Blood Pressure 103/71 107/68 O2 Sat by Pulse 98 98 Oximetry Medical Decision Making - Medical Decision Making Was pt. sent in by a medical professional or institution (, PA, REEFER TRUCK DRIVER, urgent care, hospital, or senior living...) When possible be specific @ -No Did you speak to anyone other than the patient for history (EMS, parent, family, police, friend...)? What history was obtained from this source @ -No Did you review nursing and triage notes (agree or disagree)? Why? @ -I reviewed and agree with nursing and triage notes Were old charts reviewed (outside hosp., previous admission, EMS record, old EKG, old radiological studies, urgent care reports/EKG's, senior living records)? Report findings @ -No old charts were reviewed Differential Diagnosis (chest pain, altered mental status, abdominal pain women, abdominal pain men, vaginal bleeding, weakness, fever, dyspnea, syncope, headache, dizziness, GI bleed, back pain, seizure, CVA, palpatations, mental health, musculoskeletal)? @ -Differential Dizziness: Benign paroxysmal positional Vertigo, Meniere's disease, otitis media, acoustic neuroma, vertebrobasilar insufficiency, cerebellar stroke, encephalitis, hypovolemic, arrhythmia, coronary artery syndrome, anemia, this is not meant to be an all-inclusive list EKG interpreted by me (3pts min.). @ -completed at 2320 sinus rhythm with a ventricular rate of 86, parable 159, QRS 85, QTc 428. No acute signs of ischemia. X-rays interpreted by me (1pt min.). @ -None done CT interpreted by me (1pt min.). @ -CT of the brain without contrast reveals no acute intracranial hemorrhage or midline shift U/S interpreted by me (1pt. min.). @ -None done What testing was considered but not performed or refused? (CT, X-rays, U/S, labs)? Why? @ -None What meds were considered but not given or refused? Why? @ -None Did you discuss the management of the patient with other professionals (professionals i.e. , PA, REEFER TRUCK DRIVER, lab, RT, psych nurse, long term care social worker, professor of mechanical engineering, teacher, engineering officer, transplant case manager)? Give summary @ -No Was smoking cessation discussed for >3mins.? @ -No Was critical care preformed (if so, how long)? @ -No Were there social determinants of health that impacted care today? How? (Homelessness, low income, unemployed, alcoholism, drug addiction, transportation, low edu. Level, literacy, decrease access to med. care, [place] [facility], rehab)? @ -No Was there de-escalation of care discussed even if they declined (Discuss DNR or withdrawal of care, Hospice)? DNR status @ -No What co-morbidities impacted this encounter? (DM, HTN, Smoking, COPD, CAD, Cancer, CVA, ARF, Chemo, Hep., AIDS, mental health diagnosis, sleep apnea, morbid obesity)? @ -None Was patient admitted / discharged? Hospital course, mention meds given and route, prescriptions, significant lab abnormalities, going to OR and other pertinent info. @ -Discharge. 34-year-old female with dizziness, abdominal pain, back pain. On my evaluation the patient she does not complain no signs acute distress. Her vital signs are stable. NIH unremarkable. HIINTS exam no acute findings/deficits. Neurological examination with no deficits. Patient is provided with his and meclizine pending laboratory results. CBC, CMP within normal limits. CT unremarkable. On reevaluation, patient states that medication has slightly improved dizziness and states that she feels comfortable following outpatient with her primary care provider for further evaluation. All questions have been answered at bedside answered return parameters have been discussed with the patient she is verbalized understanding. Patient is also sent a prescription for meclizine to take only as needed for intermittent dizziness. Discussed with my attending Dr. Du Undiagnosed new problem with uncertain prognosis? @ -No Drug Therapy requiring intensive monitoring for toxicity (Heparin, Nitro, Insulin, Cardizem)? @ -No Were any procedures done? @ -No Diagnosis/symptom? @ -Vertigo, dizziness Acute, or Chronic, or Acute on Chronic? @ -acute Uncomplicated (without systemic symptoms) or Complicated (systemic symptoms)? @ -Uncomplicated Side effects of treatment? @ -No Exacerbation, Progression, or Severe Exacerbation? @ -No Poses a threat to life or bodily function? How? (Chest pain, [place], [place], pneumonia, PE, COPD, DKA, ARF, appy, cholecystitis, CVA, Diverticulitis, Homicidal, Suicidal, threat to staff... and all critical care pts) @ -No - Lab Data Result diagrams: 04/14/24 22:56 04/14/24 22:56 Lab Results 04/14/24 04/14/24 Range/Units 22:56 22:56 WBC 7.8 (3.8-10.6) k/uL RBC 4.52 (3.80-5.40) m/uL Hgb 12.3 (11.4-16.0) gm/dL Hct 37.7 (34.0-46.0) % MCV 83.5 (80.0-100.0) fL MCH 27.3 (25.0-35.0) pg MCHC 32.7 (31.0-37.0) g/dL RDW 12.9 (11.5-15.5) % Plt Count 384 (150-450) k/uL MPV 7.2 Neutrophils % 52 % Lymphocytes % 40 % Monocytes % 4 % Eosinophils % 3 % Basophils % 1 % Neutrophils # 4.0 (1.3-7.7) k/uL Lymphocytes # 3.1 (1.0-4.8) k/uL Monocytes # 0.3 (0-1.0) k/uL Eosinophils # 0.2 (0-0.7) k/uL Basophils # 0.1 (0-0.2) k/uL Sodium 137 (137-145) mmol/L Potassium 3.9 (3.5-5.1) mmol/L Chloride 107 (98-107) mmol/L Carbon Dioxide 25 (22-30) mmol/L Anion Gap 5 mmol/L BUN 10 (7-17) mg/dL Creatinine 0.57 (0.52-1.04) mg/dL Est GFR (CKD-EPI)AfAm >90 (>60 ml/min/1.73 sqM) Est GFR (CKD-EPI)NonAf >90 (>60 ml/min/1.73 sqM) Glucose 90 (74-99) mg/dL Calcium 8.9 (8.4-10.2) mg/dL Phosphorus 4.1 (2.5-4.5) mg/dL Magnesium 1.9 (1.6-2.3) mg/dL Total Bilirubin 0.4 (0.2-1.3) mg/dL AST 20 (14-36) U/L ALT 14 (4-34) U/L Alkaline Phosphatase 48 (38-126) U/L Total Protein 6.8 (6.3-8.2) g/dL Albumin 4.0 (3.5-5.0) g/dL Disposition Clinical Impression: BPPV (benign paroxysmal positional vertigo) Disposition: HOME SELF-CARE Condition: Good Instructions (If sedation given, give patient instructions): Vertigo (ED) Additional Instructions: Please return to the Emergency Department if symptoms worsen or any other concerns. Recommend that you take Antivert only as needed for intermittent dizziness. Recommend that you follow-up with your primary care provider within the next week for further evaluation Prescriptions: Meclizine [Antivert] 25 mg PO TID PRN #15 tab PRN Reason: Vertigo Is patient prescribed a controlled substance at d/c from ED?: No Referrals: None,Stated [Primary Care Provider] - 1-2 days Time of Disposition: 01:03
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
[2024-04-14] MEDS: MECLIZINE 12.5 MG TAB PO STA (22:54)
[2024-04-14] MEDS: SODIUM CHLORIDE 0.9% 1,000 ML IV STA (22:56)
[2024-04-14 23:40] LABS: Basophils # (A) 0.1 k/uL (0-0.2); Basophils % (A) 1 %; Eosinophils # (A) 0.2 k/uL (0-0.7); Eosinophils % (A) 3 %; HCT 37.7 % (34.0-46.0); HGB 12.3 gm/dL (11.4-16.0); Lymphocytes # (A) 3.1 k/uL (1.0-4.8); Lymphocytes % (A) 40 %; MCH 27.3 pg (25.0-35.0); MCHC 32.7 g/dL (31.0-37.0); MCV 83.5 fL (80.0-100.0); Mean Platelet Volume 7.2; Monocytes # (A) 0.3 k/uL (0-1.0); Monocytes % (A) 4 %; Neutrophils % (A) 52 %; Platelet Count 384 k/uL (150-450); RBC 4.52 m/uL (3.80-5.40); RDW 12.9 % (11.5-15.5); WBC 7.8 k/uL (3.8-10.6)
[2024-04-14 23:43] LABS: ALT 14 U/L (4-34); AST 20 U/L (14-36); African American GFR (CKD) >90 (>60 ml/min/1.73 sqM); Alkaline Phosphatase 48 U/L (38-126); Anion Gap 5 mmol/L; Blood Urea Nitrogen 10 mg/dL (7-17); Calcium 8.9 mg/dL (8.4-10.2); Carbon Dioxide 25 mmol/L (22-30); Chloride 107 mmol/L (98-107); Glucose 90 mg/dL (74-99); Magnesium 1.9 mg/dL (1.6-2.3); Non-African American GFR(CKD) >90 (>60 ml/min/1.73 sqM); Phosphorus 4.1 mg/dL (2.5-4.5); Potassium 3.9 mmol/L (3.5-5.1); Sodium 137 mmol/L (137-145); Total Bilirubin 0.4 mg/dL (0.2-1.3); Total Protein 6.8 g/dL (6.3-8.2)
[2024-04-15 01:11] VITALS: BP 107/68; PULSE 63; RESP 18; TEMP 98.1
== END 2024-04-15 01:20 | disposition home or self-care (01) ==
LOC: EC 21:00
DX: H81.10 Benign paroxysmal vertigo, unspecified ear (principal); F17.290 Nicotine dependence, other tobacco product, uncomplicated; Z88.0 Allergy status to penicillin; Z91.018 Allergy to other foods; Z88.8 Allergy status to other drugs, medicaments and biological substances; Z88.1 Allergy status to other antibiotic agents
CPT/HCPCS: 36415; 70450; 80053; 83735; 84100; 85025; 93005; 96360; 99284

== ENCOUNTER 2024-08-22 10:00 | Emergency (ER) | payer OTHER ==
[2024-08-22 10:08] VITALS: RESP 18
--- NOTE | 2024-08-22 10:37 | ED ---
Abdominal Pain HPI - General Chief Complaint: Abdominal Pain Stated Complaint: abd pain Time Seen by Provider: 08/22/24 10:35 Source: patient, RN notes reviewed, old records reviewed Mode of arrival: ambulatory Limitations: no limitations - History of Present Illness Initial Comments: 34-year-old female presented to the ER for evaluation of generalized abdominal pain. Patient reports for the past 3 days she has been having a generalized "scrapy" abdominal discomfort. She states this has happened in the past and she has followed up with a GI specialist and had 2 colonoscopies a while ago. She states she was diagnosed with IBS. Patient reports nausea but denies any vomiting. Her appetite is intermittent. She denies any diarrhea/constipation o r urinary complaints. No vaginal bleeding or discharge. No fevers or chills. Patient has taken ibuprofen and naproxen with no relief of her symptoms. No other complaints at this time. - Related Data Home Medications Medication Instructions Recorded Confirmed lamoTRIgine [LaMICtal] 150 mg PO BID 09/12/23 04/02/24 Gabapentin [Neurontin] 100 mg PO TID PRN 04/02/24 04/02/24 Loratadine 10 mg PO DAILY PRN 04/02/24 04/02/24 Meloxicam [Mobic] 15 mg PO HS 04/02/24 04/02/24 busPIRone HCL [Buspar] 30 mg PO BID 04/02/24 04/02/24 Previous Rx's Medication Instructions Recorded Ondansetron Odt [Zofran ODT] 4 mg PO Q8HR PRN #10 tab 02/21/24 Ciprofloxacin HCl [Cipro] 500 mg PO Q12HR #9 tablet 04/02/24 Ondansetron Odt [Zofran Odt] 4 mg PO Q8HR PRN #10 tab 04/02/24 metroNIDAZOLE [Flagyl] 500 mg PO TID #14 tab 04/02/24 Meclizine [Antivert] 25 mg PO TID PRN #15 tab 04/15/24 Metoclopramide HCl [Reglan] 10 mg PO Q8HR PRN #15 tab 08/22/24 Allergies Allergy/AdvReac Type Severity Reaction Status Date / Time silver Allergy Rash/Hives Verified 08/22/24 10:08 [From Tegaderm AG Mesh] wheat Allergy Abdominal Verified 08/22/24 10:08 Pain/hives amoxicillin trihydrate AdvReac Abdominal Verified 08/22/24 10:08 [From Augmentin] Pain corn AdvReac Abdominal Verified 08/22/24 10:08 Pain eszopiclone [From Lunesta] AdvReac Confusion/Stroke Verified 08/22/24 10:08 like sypmtoms potassium clavulanate AdvReac Abdominal Verified 08/22/24 10:08 [From Augmentin] Pain Yeast AdvReac Unknown Verified 08/22/24 10:08 tegaderm Allergy Rash/Hives Uncoded 08/22/24 10:08 Review of Systems ROS Statement: Those systems with pertinent positive or pertinent negative responses have been documented in the HPI. ROS Other: All systems not noted in ROS Statement are negative. Past Medical History Past Medical History: Fibromyalgia, GERD/Reflux, Skin Disorder Additional Past Medical History / Comment(s): hx bowel obstruction(self resolved) pancreatitis. migraines, hx gestational diabetic, nausea/constipat ion/diarrhea/severe stomach cramps, "food sensitivities", eczema-dry skin, "borderline diabetic"-diet control, elevated triglycerides, frequent UTI's History of Any Multi-Drug Resistant Organisms: None Reported Past Surgical History: Section, Cholecystectomy Additional Past Surgical History / Comment(s): Dilation and Currettage Past Anesthesia/Blood Transfusion Reactions: Motion Sickness Past Psychological History: Anxiety, Bipolar, Depression Smoking Status: Former smoker, Vaper Past Alcohol Use History: Occasional Past Drug Use History: None Reported - Past Family History Father Additional Family Medical History / Comment(s): Hx CABG, father 2016 Mother Family Medical History: No Reported History General Exam Limitations: no limitations General appearance: alert, in no apparent distress Respiratory exam: Present: normal lung sounds bilaterally. Absent: respiratory distress, wheezes, rales, rhonchi, stridor Cardiovascular Exam: Present: regular rate, normal rhythm, normal heart sounds. Absent: systolic murmur, diastolic murmur, rubs, gallop, clicks GI/Abdominal exam: Present: soft, tenderness (generalized), normal bowel sounds Neurological exam: Present: alert, oriented X3, CN II-XII intact Skin exam: Present: warm, dry, intact, normal color. Absent: rash Course Vital Signs 08/22/24 08/22/24 10:07 12:29 Temperature 97.8 F 98.2 F Pulse Rate 100 86 Respiratory 18 18 Rate Blood Pressure 114/77 98/61 O2 Sat by Pulse 99 100 Oximetry Medical Decision Making - Medical Decision Making Was pt. sent in by a medical professional or institution ([facility], CHEMICAL DEPENDENCY PROFESSIONAL, urgent care, hospital, or group home...) When possible be specific @ -No Did you speak to anyone other than the patient for history (EMS, parent, family, police, friend...)? What history was obtained from this source @ -No Did you review nursing and triage notes (agree or disagree)? Why? @ -I reviewed and agree with nursing and triage notes Were old charts reviewed (outside hosp., previous admission, EMS record, old EKG, old radiological studies, urgent care reports/EKG's, group home records)? Report findings @ -No old charts were reviewed Differential Diagnosis (chest pain, altered mental status, abdominal pain women, abdominal pain men, vaginal bleeding, weakness, fever, dyspnea, syncope, headache, dizziness, GI bleed, back pain, seizure, CVA, palpatations, mental health, musculoskeletal)? @ -Differential Abdominal Pain Men: Appendicitis, cholecystitis, diverticulosis, ischemic bowel, pancreatitis, hepatitis, UTI, gastroenteritis, AAA, incarcerated hernia, bowel obstruction, constipation, inflammatory bowel, hepatitis, peptic ulcer disease, splenic infarction, perforated viscus, testicular torsion, this is not meant to be an all-inclusive list EKG interpreted by me (3pts min.). @ -None X-rays interpreted by me (1pt min.). @ -None done CT interpreted by me (1pt min.). @ -None done U/S interpreted by me (1pt. min.). @ -None done What testing was considered but not performed or refused? (CT, X-rays, U/S, labs)? Why? @ -Imaging deferred as no focal abdominal tenderness, patient agreeable. What meds were considered but not given or refused? Why? @ -None Did you discuss the management of the patient with other professionals (professionals i.e. [facility], CHEMICAL DEPENDENCY PROFESSIONAL, lab, RT, psych nurse, medical social worker, cloth finishing range tender, teacher, veterans service officer, trimming caser)? Give summary @ -No Was smoking cessation discussed for >3mins.? @ -No Was critical care preformed (if so, how long)? @ -No Were there social determinants of health that impacted care today? How? (Homelessness, low income, unemployed, alcoholism, drug addiction, transportation, low edu. Level, literacy, decrease access to med. care, halfway, rehab)? @ -No Was there de-escalation of care discussed even if they declined (Discuss DNR or withdrawal of care, Hospice)? DNR status @ -No What co-morbidities impacted this encounter? (DM, HTN, Smoking, COPD, CAD, Cancer, CVA, ARF, Chemo, Hep., AIDS, mental health diagnosis, sleep apnea, morbid obesity)? @ -None Was patient admitted / discharged? Hospital course, mention meds given and route, prescriptions, significant lab abnormalities, going to OR and other perti nent info. @ -Discharge. 34-year-old female presented the ER for evaluation of generaliz ed abdominal pain. Upon rooming, history and physical exam completed. Vitals within acceptable limits. Patient had no signs of acute distress nontoxic- appearing. There is generalized abdominal tenderness on exam. Laboratory studies mild signs of dehydration for which she received IV fluids. Urinalysis few bacteria and moderate leukocyte esterases, sample is contaminated with epithelial cells. Patient given symptomatic control in the ER with Pepcid, Zofran, Reglan and Toradol, with improvement of symptoms upon reevaluation. Imaging deferred as there is no focal abdominal tenderness, patient is agreeable. Patient is stable for discharge at this time. Strict return parameters discussed. Patient discharged in stable condition with follow-up to PCP and GI, referral given. Reglan prescribed. Patient verbally expressed understanding agree with care plan. Case discussed with ED attending, Dr. Taylor. Undiagnosed new problem with uncertain prognosis? @ -No Drug Therapy requiring intensive monitoring for toxicity (Heparin, Nitro, Insulin, Cardizem)? @ -No Were any procedures done? @ -No Diagnosis/symptom? @ -Abdominal pain Acute, or Chronic, or Acute on Chronic? @ -Acute Uncomplicated (without systemic symptoms) or Complicated (systemic symptoms)? @ -Uncomplicated Side effects of treatment? @ -No Exacerbation, Progression, or Severe Exacerbation? @ -No Poses a threat to life or bodily function? How? (Chest pain, USA, IA, pneumonia, PE, COPD, DKA, ARF, appy, cholecystitis, CVA, Diverticulitis, Homicidal, Suicidal, threat to staff... and all critical care pts) @ -No - Lab Data Result diagrams: 08/22/24 10:37 08/22/24 10:37 Lab Results 08/22/24 08/22/24 08/22/24 Range/Units 10:37 10:37 10:37 WBC 8.3 (3.8-10.6) k/uL RBC 4.64 (3.80-5.40) m/uL Hgb 12.3 (11.4-16.0) gm/dL Hct 38.7 (34.0-46.0) % MCV 83.5 (80.0-100.0) fL MCH 26.5 (25.0-35.0) pg MCHC 31.7 (31.0-37.0) g/dL RDW 13.6 (11.5-15.5) % Plt Count 333 (150-450) k/uL MPV 7.1 Neutrophils % 82 % Lymphocytes % 12 % Monocytes % 3 % Eosinophils % 2 % Basophils % 0 % Neutrophils # 6.8 (1.3-7.7) k/uL Lymphocytes # 1.0 (1.0-4.8) k/uL Monocytes # 0.3 (0-1.0) k/uL Eosinophils # 0.1 (0-0.7) k/uL Basophils # 0.0 (0-0.2) k/uL Sodium 136 L (137-145) mmol/L Potassium 4.4 (3.5-5.1) mmol/L Chloride 106 (98-107) mmol/L Carbon Dioxide 24 (22-30) mmol/L Anion Gap 6 mmol/L BUN 18 H (7-17) mg/dL Creatinine 0.66 (0.52-1.04) mg/dL Est GFR (CKD-EPI)AfAm >90 (>60 ml/min/1.73 sqM) Est GFR (CKD-EPI)NonAf >90 (>60 ml/min/1.73 sqM) Glucose 91 (74-99) mg/dL Plasma Lactic Acid Osmani 0.7 (0.7-2.0) mmol/L Calcium 8.3 L (8.4-10.2) mg/dL Total Bilirubin 0.8 (0.2-1.3) mg/dL AST 25 (14-36) U/L ALT 29 (4-34) U/L Alkaline Phosphatase 53 (38-126) U/L Total Protein 6.7 (6.3-8.2) g/dL Albumin 3.8 (3.5-5.0) g/dL Amylase 60 (30-110) U/L Lipase 113 (23-300) U/L Urine Color Urine Appearance (Clear) Urine pH (5.0-8.0) Ur Specific [place] (1.001-1.035) Urine Protein (Negative) Urine Glucose (UA) (Negative) Urine Ketones (Negative) Urine Blood (Negative) Urine Nitrite (Negative) Urine Bilirubin (Negative) Urine Urobilinogen (<2.0) mg/dL Ur Leukocyte Esterase (Negative) Urine RBC (0-5) /hpf Urine WBC (0-5) /hpf Ur Squamous Epith Cells (0-4) /hpf Urine Bacteria (None) /hpf Urine Mucus (None) /hpf Urine HCG, Qual (Not Detectd) 08/22/24 08/22/24 Range/Units 10:45 10:45 WBC (3.8-10.6) k/uL RBC (3.80-5.40) m/uL Hgb (11.4-16.0) gm/dL Hct (34.0-46.0) % MCV (80.0-100.0) fL MCH (25.0-35.0) pg MCHC (31.0-37.0) g/dL RDW (11.5-15.5) % Plt Count (150-450) k/uL MPV Neutrophils % % Lymphocytes % % Monocytes % % Eosinophils % % Basophils % % Neutrophils # (1.3-7.7) k/uL Lymphocytes # (1.0-4.8) k/uL Monocytes # (0-1.0) k/uL Eosinophils # (0-0.7) k/uL Basophils # (0-0.2) k/uL Sodium (137-145) mmol/L Potassium (3.5-5.1) mmol/L Chloride (98-107) mmol/L Carbon Dioxide (22-30) mmol/L Anion Gap mmol/L BUN (7-17) mg/dL Creatinine (0.52-1.04) mg/dL Est GFR (CKD-EPI)AfAm (>60 ml/min/1.73 sqM) Est GFR (CKD-EPI)NonAf (>60 ml/min/1.73 sqM) Glucose (74-99) mg/dL Plasma Lactic Acid Osmani (0.7-2.0) mmol/L Calcium (8.4-10.2) mg/dL Total Bilirubin (0.2-1.3) mg/dL AST (14-36) U/L ALT (4-34) U/L Alkaline Phosphatase (38-126) U/L Total Protein (6.3-8.2) g/dL Albumin (3.5-5.0) g/dL Amylase (30-110) U/L Lipase (23-300) U/L Urine Color Yellow Urine Appearance Cloudy H (Clear) Urine pH 5.5 (5.0-8.0) Ur Specific [place] 1.022 (1.001-1.035) Urine Protein Negative (Negative) Urine Glucose (UA) Negative (Negative) Urine Ketones Negative (Negative) Urine Blood Negative (Negative) Urine Nitrite Negative (Negative) Urine Bilirubin Negative (Negative) Urine Urobilinogen <2.0 (<2.0) mg/dL Ur Leukocyte Esterase Moderate H (Negative) Urine RBC 1 (0-5) /hpf Urine WBC 7 H (0-5) /hpf Ur Squamous Epith Cells 7 H (0-4) /hpf Urine Bacteria Few H (None) /hpf Urine Mucus Occasional H (None) /hpf Urine HCG, Qual Not Detected (Not Detectd) Disposition Clinical Impression: Abdominal pain Disposition: HOME SELF-CARE Condition: Stable Instructions (If sedation given, give patient instructions): Abdominal Pain (ED) Additional Instructions: Follow-up with PCP and GI. Return to the ER for any new or worsening concerns. Prescriptions: Metoclopramide HCl [Reglan] 10 mg PO Q8HR PRN #15 tab PRN Reason: Nausea Is patient prescribed a controlled substance at d/c from ED?: No Referrals: Bakari Lay DO [Primary Care Provider] - 1-2 days Yudelka Landon MD [STAFF PHYSICIAN] - 1-2 days Time of Disposition: 12:13
[2024-08-22] MEDS: SODIUM CHLORIDE 0.9% 1,000 ML IV ONE (10:39)
[2024-08-22] MEDS: ONDANSETRON 4 MG/2 ML VIAL IVP STA (10:39)
[2024-08-22] MEDS: KETOROLAC 15 MG/ML 1 ML VIAL IVP STA (10:39)
[2024-08-22 10:44] LABS: Basophils % (A) 0 %; Eosinophils # (A) 0.1 k/uL (0-0.7); Eosinophils % (A) 2 %; HCT 38.7 % (34.0-46.0); HGB 12.3 gm/dL (11.4-16.0); Lymphocytes % (A) 12 %; MCH 26.5 pg (25.0-35.0); MCHC 31.7 g/dL (31.0-37.0); MCV 83.5 fL (80.0-100.0); Mean Platelet Volume 7.1; Monocytes # (A) 0.3 k/uL (0-1.0); Monocytes % (A) 3 %; Neutrophils # (A) 6.8 k/uL (1.3-7.7); Neutrophils % (A) 82 %; Platelet Count 333 k/uL (150-450); RBC 4.64 m/uL (3.80-5.40); RDW 13.6 % (11.5-15.5); WBC 8.3 k/uL (3.8-10.6)
[2024-08-22 10:57] LABS: ALT 29 U/L (4-34); AST 25 U/L (14-36); African American GFR (CKD) >90 (>60 ml/min/1.73 sqM); Albumin 3.8 g/dL (3.5-5.0); Alkaline Phosphatase 53 U/L (38-126); Amylase 60 U/L (30-110); Anion Gap 6 mmol/L; Blood Urea Nitrogen 18 mg/dL (7-17); Calcium 8.3 mg/dL (8.4-10.2); Carbon Dioxide 24 mmol/L (22-30); Chloride 106 mmol/L (98-107); Glucose 91 mg/dL (74-99); Lipase 113 U/L (23-300); Non-African American GFR(CKD) >90 (>60 ml/min/1.73 sqM); Potassium 4.4 mmol/L (3.5-5.1); Sodium 136 mmol/L (137-145); Total Bilirubin 0.8 mg/dL (0.2-1.3); Total Protein 6.7 g/dL (6.3-8.2)
[2024-08-22 11:12] LABS: Appearance,Urine Cloudy (Clear); Bacteria,Urine Few /hpf; Bilirubin,Urine Negative (Negative); Blood,Urine Negative (Negative); Color,Urine Yellow; Glucose,Urine (UA) Negative (Negative); Ketones,Urine Negative (Negative); Leukocyte Esterase,Urine Moderate (Negative); Mucus,Urine Occasional /hpf; Nitrite,Urine Negative (Negative); PH, Urine 5.5 (5.0-8.0); Protein,Urine Negative (Negative); RBC,Urine 1 /hpf (0-5); Specific Gravity,Urine 1.022 (1.001-1.035); Squamous Epithelial Cell,Urine 7 /hpf (0-4); Urobilinogen,Urine <2.0 mg/dL (<2.0); WBC,Urine 7 /hpf (0-5)
[2024-08-22] MEDS: SODIUM CHLORIDE 0.9% 500 ML 500 ML IV ONE (11:35)
[2024-08-22] MEDS: METOCLOPRAMIDE 5 MG/ML 2 ML VIAL IVP STA (11:36)
[2024-08-22] MEDS: FAMOTIDINE 20 MG/2 ML VIAL IV STA (11:37)
[2024-08-22 12:31] VITALS: BP 98/61; PULSE 86; TEMP 98.2
== END 2024-08-22 12:31 | disposition home or self-care (01) ==
LOC: EC 10:00
DX: R10.84 Generalized abdominal pain (principal); F17.290 Nicotine dependence, other tobacco product, uncomplicated; Z88.1 Allergy status to other antibiotic agents; Z88.0 Allergy status to penicillin; Z91.018 Allergy to other foods; Z88.8 Allergy status to other drugs, medicaments and biological substances
CPT/HCPCS: 36415; 80053; 82150; 83605; 83690; 85025; 81001; 81025; 99284; 96374; 96375; 96361; J2765; J2405; J3490; J1885

== ENCOUNTER → 2024-08-30 | Outpatient (CLI) | payer OTHER ==
--- NOTE | 2024-08-30 14:10 | P.PAINCN ---
History of Present Illness - History of Present Illness This is a 34-year-old pleasant lady who had lumbar spinal surgery possible L5-S1 level in September 2022. Patient got excellent pain relief postsurgery, but unfortunately last few months patient is having low back pain. Pain is located low back going down to bilateral lower extremities up to her toes. Right is worse than left. Pain is basically all the time of the day and severely increased with coughing sneezing and physical activities. Density goes up to 8/10. Complete rest heat and ice gives some relief. He describes her pain as dull ache constant in the back and sharp shooting in lower extremities. Denies any bowel bladder dysfunction. Patient complains of occasional knee weakness off and on. Patient relates, hard to assess about any sensory loss. Past Medical History Past Medical History: Fibromyalgia, GERD/Reflux, Skin Disorder Additional Past Medical History / Comment(s): hx bowel obstruction(self resolved) pancreatitis. migraines, hx gestational diabetic, nausea/constipation/diarrhea/severe stomach cramps, "food sensitivities", eczema-dry skin, "borderline diabetic"-diet control, elevated triglycerides, frequent UTI's History of Any Multi-Drug Resistant Organisms: None Reported Past Surgical History: Section, Cholecystectomy Additional Past Surgical History / Comment(s): Dilation and Currettage Past Anesthesia/Blood Transfusion Reactions: Motion Sickness Past Psychological History: Anxiety, Bipolar, Depression Additional Psychological History / Comment(s): . Smoking Status: Former smoker, Vaper Past Alcohol Use History: Occasional Additional Past Alcohol Use History / Comment(s): Pt started smoking in 2003 and quit in 2014. Past Drug Use History: None Reported - Past Family History Father Additional Family Medical History / Comment(s): Hx CABG, father 2016 Mother Family Medical History: No Reported History Medications and Allergies Home Medications Medication Instructions Recorded Confirmed Type lamoTRIgine [LaMICtal] 150 mg PO BID 09/12/23 04/02/24 History Ondansetron Odt [Zofran ODT] 4 mg PO Q8HR PRN #10 tab 02/21/24 04/02/24 Rx Ciprofloxacin HCl [Cipro] 500 mg PO Q12HR #9 tablet 04/02/24 Rx Gabapentin [Neurontin] 100 mg PO TID PRN 04/02/24 04/02/24 History Loratadine 10 mg PO DAILY PRN 04/02/24 04/02/24 History Meloxicam [Mobic] 15 mg PO HS 04/02/24 04/02/24 History Ondansetron Odt [Zofran Odt] 4 mg PO Q8HR PRN #10 tab 04/02/24 Rx busPIRone HCL [Buspar] 30 mg PO BID 04/02/24 04/02/24 History metroNIDAZOLE [Flagyl] 500 mg PO TID #14 tab 04/02/24 Rx Meclizine [Antivert] 25 mg PO TID PRN #15 tab 04/15/24 Rx Metoclopramide HCl [Reglan] 10 mg PO Q8HR PRN #15 tab 08/22/24 Rx Allergies Allergy/AdvReac Type Severity Reaction Status Date / Time silver Allergy Rash/Hives Verified 08/22/24 10:08 [From Tegaderm AG Mesh] wheat Allergy Abdominal Verified 08/22/24 10:08 Pain/hives amoxicillin trihydrate AdvReac Abdominal Verified 08/22/24 10:08 [From Augmentin] Pain corn AdvReac Abdominal Verified 08/22/24 10:08 Pain eszopiclone [From Lunesta] AdvReac Confusion/Stroke Verified 08/22/24 10:08 like sypmtoms potassium clavulanate AdvReac Abdominal Verified 08/22/24 10:08 [From Augmentin] Pain Yeast AdvReac Unknown Verified 08/22/24 10:08 tegaderm Allergy Rash/Hives Uncoded 08/22/24 10:08 Physical Exam Physical Examinations : -Constitutiona : Cooperative , not in acute distress . -HEENT : nech : supple , no Lymphadenopathy , normal thyroid size . : eyes : no ptosis , no icterus, no photophobia . - neurologic : Cranial nerve II to XII intact , no focal neurological deffecit . -psychatric : alert , oriented X 3 , appropriate affect , intact judgment and insight . -Lymphatic : no Lymphadenopathy . - musculoskeltal : Lumber spine moter stegnth lower extremities ,thigh and legs 5/5 Right side , 5/5 Left side deep tendon reflexes : normal Knee Jerk , normal ankle Jerk Sensory exam in lower extremities grossly intact. lumber facet Loading Test =positive R ight , positive Left Range of motion of the lumbar spine is severely restricted because of pain. Significant tenderness in lumbar spine midline and paraspinal areas. strait leg raising test = positive bilaterally. Assessment and Plan Assessment: 1. L5-S1 lumbar disc herniation. 2. Bilateral lumbar radiculopathy right worse than left. Plan: Will schedule for lumbar (caudal approach) epidural steroid injection as patient had L5-S1 level surgery in the past. Discussed the procedure and possible complications which may include infection, bleeding, nerve damage, aggravation of pain all of which could be permanent. Patient understands and all questions answered. PQRS Measure Charge Sheet PQRS Narrative: Smoking Status Former smoker Home Medications: Ambulatory Orders lamoTRIgine [LaMICtal] 150 mg PO BID 09/12/23 Ondansetron Odt [Zofran ODT] 4 mg PO Q8HR PRN #10 tab 02/21/24 Ciprofloxacin HCl [Cipro] 500 mg PO Q12HR #9 tablet 04/02/24 Gabapentin [Neurontin] 100 mg PO TID PRN 04/02/24 Loratadine 10 mg PO DAILY PRN 04/02/24 Meloxicam [Mobic] 15 mg PO HS 04/02/24 Ondansetron Odt [Zofran Odt] 4 mg PO Q8HR PRN #10 tab 04/02/24 busPIRone HCL [Buspar] 30 mg PO BID 04/02/24 metroNIDAZOLE [Flagyl] 500 mg PO TID #14 tab 04/02/24 Meclizine [Antivert] 25 mg PO TID PRN #15 tab 04/15/24 Metoclopramide HCl [Reglan] 10 mg PO Q8HR PRN #15 tab 08/22/24
[2024-08-30 14:14] VITALS: BP 109/71; PULSE 86; RESP 16; TEMP 97.3
== END ==
LOC: PNWHC3 13:30
PROVIDERS: ATTEND Pain Medicine Interventional Pain Medicine
DX: M54.16 Radiculopathy, lumbar region (principal); M51.26 Other intervertebral disc displacement, lumbar region; Z87.891 Personal history of nicotine dependence; Z91.048 Other nonmedicinal substance allergy status; Z91.018 Allergy to other foods; Z88.0 Allergy status to penicillin
CPT/HCPCS: 99211

== ENCOUNTER 2024-09-14 13:04 | Day surgery (SDC) | payer OTHER ==
[2024-09-11 16:15] VITALS: BMI 28.3
[~2024-09-14 13:04] MED LIST changes: -ACETAMINOPHEN TAB 500 MG TAB PO PRN; -DEXAMETHASONE SOD PHOSPHATE 4 MG/ML 1 ML VIAL IV ONE; -GABAPENTIN 300 MG CAP PO PRN; -HYDROmorphone 0.5 MG/0.5 ML SYRINGE IVP PRN; +LACTATED RINGERS 1,000 ML IV SCH; -LIDOCAINE 1% (10MG/ML) FOR IV START INTRADERMA PRN; -MIDAZOLAM 2 MG/2 ML VIAL IV PRN; -ONDANSETRON 4 MG/2 ML VIAL IVP ONE; -ONDANSETRON 4 MG/2 ML VIAL IVP PRN; -TRANEXAMIC ACID IN NACL,ISO-OS 1,000 MG in SALINE 1 100ML.BAG IVPB PRN
[2024-09-14 14:05] VITALS: TEMP 97
[2024-09-14] MEDS ORDERED: IOPAMIDOL M200 10 ML VIAL ONE (14:16)
[2024-09-14] MEDS ORDERED: methylPREDNISolone ACETATE 80 MG/ML 1 ML VIAL ONE (14:16)
--- NOTE | 2024-09-14 14:25 | P.PCN ---
Date of Procedure: 09/14/24 Procedure(s) Performed: PREOPERATIVE DIAGNOSIS:1-lumbar radiculopathy. 2-lumbar herniated disc disease. 3-previous laminectomy surgery at L5-S1 POSTOPERATIVE DIAGNOSIS: Same as preop diagnosis. PROCEDURE: 1. Caudal epidural steroid injection under fluoroscopic guidance. (Fluoroscopy images available in the radiology department ) 2. Caudal epidurogram ANESTHESIA: Local with 1% lidocaine; 5ml for subcutaneous infiltrations . EBL: None. PROCEDURE INDICATION: The patient with neuropathic pain radiating distally returns for caudal epidural steroid injection. PROCEDURE DESCRIPTION: The patient was seen and identified in the preoperative area. Risks, benefits, complications, and alternatives were discussed with the patient. The patient agreed to proceed with the procedure and signed the consent, and vital signs were stable. Patient was taken to the OR and time out was completed. The patient was placed in the prone position on procedure table and a pillow was placed under the abdomen to reduce lumbar lordosis. The lumbosacral area was prepped and draped in the usual sterile fashion. Critical pause was taken. Vital signs were closely monitored during the procedure. Using lateral fluoroscopy the anterior-posterior plates of the sacrum were identified and the skin and deeper tissues corresponding into sacrococcygeal ligament were anesthetized using approximately 3 mL of 1% lidocaine. Then under fluoroscopy, a 3-1/2-inch 20-gauge Tuohy epidural needle was guided through the sacrococcygeal ligament, and into the epidural space. After negative aspiration, a 2 mL of Isovue 200 contrast dye was injected with excellent epidurogram. Again after negative aspiration for CSF, blood, and with no paresthesias, then Depo-Medrol 80 mg, 2ml of 1% preservative free Lidocaine with 6 ml of preservative free normal saline(total of 8 ml)solution was injected with washout of epidurogram. Needle was withdrawn intact. Skin was cleansed, and bandage was applied. COMPLICATIONS: None DISPOSITION / PLANS: The patient was placed in a supine position and transferred to the recovery area in a stable condition for observation and was discharged from the recovery room after meeting discharge criteria. Home discharge instructions given to the patient by the staff. The patient was reexamined prior to discharge. The patient will schedule a follow up in the clinic in 2-4 weeks.
--- NOTE | 2024-09-14 14:35 | FL ---
EXAMINATION TYPE: FL guided pain mgmt statistic DATE OF EXAM: 09/14/2024 CLINICAL INDICATION: Female, 34 years old with history of PAIN; [facility], TECHNIQUE: Fluoroscopy. COMPARISON: None. FINDINGS: Fluoroscopic guidance was provided during pain relief procedure performed by Dr. Parra . A total of 3.3 seconds of fluoroscopic time was utilized during the procedure and two spot images are acquired. Images acquired shows needle localization to the posterior sacrum. Mild degenerative c hanges are present. Total DAP: [id number] mGym2. IMPRESSION: As Above. [facility], , 09/14/2024 2:32 PM
[2024-09-14 14:54] VITALS: BP 139/90; PULSE 88; RESP 18
--- NOTE | 2024-09-14 15:16 | P.PCN ---
Date of Procedure: 09/14/24 Procedure(s) Performed: PREOPERATIVE DIAGNOSIS:1-lumbar radiculopathy. 2-lumbar spondylosis with lumbar facet arthropathy. 3-Failed back surgery syndrome lumbar area. 4- Right sacroiliitis POSTOPERATIVE DIAGNOSIS: Same as preop diagnosis. PROCEDURE: 1. Caudal epidural steroid injection under fluoroscopic guidance. (Fluoroscopy images available in the radiology department ) 2. Caudal epidurogram ANESTHESIA: Local with 1% lidocaine; 5ml for subcutaneous infiltrations . EBL: None. PROCEDURE INDICATION: The patient with neuropathic pain radiating distally returns for caudal epidural steroid injection. PROCEDURE DESCRIPTION: The patient was seen and identified in the preoperative area. Risks, benefits, complications, and alternatives were discussed with the patient. The patient agreed to proceed with the procedure and signed the consent, and vital signs were stable. Patient was taken to the OR and time out was completed. The patient was placed in the prone position on procedure table and a pillow was placed under the abdomen to reduce lumbar lordosis. The lumbosacral area was prepped and draped in the usual sterile fashion. Critical pause was taken. Vital signs were closely monitored during the procedure. Using lateral fluoroscopy the anterior-posterior plates of the sacrum were identified and the skin and deeper tissues corresponding into sacrococcygeal ligament were anesthetized using approximately 3 mL of 1% lidocaine. Then under fluoroscopy, a 3-1/2-inch 20-gauge Tuohy epidural needle was guided through the sacrococcygeal ligament, and into the epidural space. After negative aspiration, a 2 mL of Isovue 200 contrast dye was injected with excellent epidurogram. Again after negative aspiration for CSF, blood, and with no paresthesias, then Depo-Medrol 40 mg, 2ml of 1% preservative free Lidocaine with 6 ml of preservative free normal saline(total of 8 ml)solution was injected with washout of epidurogram. Needle was withdrawn intact. Skin was cleansed, and bandage was applied. COMPLICATIONS: None DISPOSITION / PLANS: The patient was placed in a supine position and transferred to the recovery area in a stable condition for observation and was discharged from the recovery room after meeting discharge criteria. Home discharge ins tructions given to the patient by the staff. The patient was reexamined prior to discharge. The patient will schedule a follow up in the clinic in 2-4 weeks.
== END 2024-09-14 15:04 | disposition home or self-care (01) ==
LOC: ORPAIN 13:04
PROVIDERS: ATTEND Specialist
DX: M47.26 Other spondylosis with radiculopathy, lumbar region (principal); M46.1 Sacroiliitis, not elsewhere classified; M51.16 Intervertebral disc disorders with radiculopathy, lumbar region; L23.1 Allergic contact dermatitis due to adhesives; Z91.018 Allergy to other foods; Z88.1 Allergy status to other antibiotic agents
CPT/HCPCS: 81025; 62323; Q9966; J1010

== ENCOUNTER → 2024-09-26 | Outpatient (CLI) | payer OTHER ==
[2024-09-26 15:46] VITALS: BP 107/76; PULSE 80; RESP 17; TEMP 96.8
--- NOTE | 2024-09-26 19:09 | P.PAINPG ---
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 Pt states she experienced 0% pain relief s/p procedure. Pain level is provoked at 4-6 /10 in intensity, constant, predominantly axial, localized in the lumbar spine, throbbing in character w occasional shooting towards the back of the LEs. Pain is provoked by over activity and valsalva maneuver. Pain is alleviated with physician guided home exercise regimen 4-5 times weekly since Jul 2024, heat, ice, medications, repositioning and rest. Interventional pain procedures completed include Caudal BLAKE (09/04) Patient is currently on Neurontin Patient denies any side effects of the medication(s), denies excessive drowsiness or sleepiness, denies suicidal ideation and reports that the current pain medication is helping to control the pain and improve activities of daily living. Patient denies any motor or sensory deficits. Patient denies any fever or night sweats, denies any change in the bowel movements or urination. Physical Examination: -Constitutional: Cooperative. Not in acute distress . - Neurologic: Cranial nerve II to XII intact. No focal neurological deficits. - Psychatric: Alert & oriented x 3. Matching mood & appropriate affect. Judgment and insight intact. - Musculoskeletal: Cervical spine: Muscle bulk/ tone/ strength in the bilateral upper extremities normal Vertebral body tenderness to palpation over Spurling test positive Distraction test positive Facet loading test positive TTP Thoracic spine Muscle bulk / tone/ strength in the bilateral paraspinal muscles normal Vertebral body tender to palpation over Facet loading test positive TTP Lumbar spine: Motor bulk/ tone/ strength lower extremities , thigh and legs : 5/5 Deep tendon reflexes : Normal Knee Jerk. Normal Ankle Jerk . Vertebral body tenderness to palpation over L5 Desai Test positive Lumbar Facet Loading Test positive Straight Leg Raise: positive at 30 degrees right side/ left side Gaenslen's Test positive Sacral spine : Severe tenderness over the Sacroiliac joint: right side / left side Range of motion: Flexion of the lumbar spine <60 degrees Range of motion: Extension of the lumbar spine <20 degrees Gaenslen's Test positive right side / left side Nanci test: positive right side / left side Thigh Thrust Test positive right side / left side Sacral Thrust Test positive right side / left side Assessment and plan: Chronic LBP secondary to L5-S1 radiculopathy, spondylosis with facet arthropathy without myelopathy Recommendation of medication management. Chronic and current use of high-risk medication (Opioids). The patient was counseled about risk of opioid use, psychological risk associated with opioids and was orally counseled to not overuse , divert or sell medications. Pt is to store medication in a safe location. The patient is counseled against driving while using narcotic medications and also not to use alcohol or any illicit recreational drugs. Patient verbalized understanding that the lack of compliance will result in failure to renew narcotic prescription(s) as well as possible discharge from the clinic Diagnoses, prognosis and treatment options including but not limited to physical therapy, surgical interventions, interventional therapies and medication management including narcotics and adjuvant medication were discussed. All patient questions answered . Opiate/ narcotic agreement signed 09/26/24. MAPS reviewed and it was appropriate. Prescription refill for Tramadol 50mg #90 1 RF. All questions answered. I have spent less than 30 minutes on patient care today. Dr Parra was available by phone for the evaluation of this patient. The time was used to review the medical records including relevant urine studies and Prescription h istory (MAPs), review of the available imaging, evaluation and examination of the patient, coordination of care with the medical staff and if applicable referring physicians, as well as creation of the medical record PQRS Narrative: Smoking Status Former smoker Hx Alcohol Use (MH) No Home Medications: Ambulatory Orders lamoTRIgine [LaMICtal] 150 mg PO BID 09/12/23 Gabapentin [Neurontin] 100 mg PO TID PRN 04/02/24 Loratadine 10 mg PO DAILY PRN 04/02/24 Meloxicam [Mobic] 15 mg PO HS 04/02/24 Ondansetron Odt [Zofran Odt] 4 mg PO Q8HR PRN #10 tab 04/02/24 busPIRone HCL [Buspar] 30 mg PO BID 04/02/24 Meclizine [Antivert] 25 mg PO TID PRN #15 tab 04/15/24 Metoclopramide HCl [Reglan] 10 mg PO Q8HR PRN #15 tab 08/22/24 diazePAM [Valium] 5 mg PO DIRECTED #1 tab 08/30/24 Fish Oil/Dha/Epa [Fish Oil 1,200 mg Fish Oil] 1 each PO DAILY 09/11/24 traMADol HCL 50 mg PO TID PRN 30 Days #90 tab 09/26/24 Controlled Substance Measures - Controlled Substance Measures Is patient prescribed a controlled substance at discharge?: Yes When asked, does pt state using other controlled substances?: Yes If prescribed controlled substance>3 days was MAPS reviewed?: Yes If Rx opioid, was Start Talking consent form obtained?: Yes Was information provided regarding opioid addiction?: Yes
== END ==
LOC: PNWHC3 14:00
PROVIDERS: ATTEND Specialist
DX: M47.27 Other spondylosis with radiculopathy, lumbosacral region (principal); G89.29 Other chronic pain; Z87.891 Personal history of nicotine dependence; Z88.1 Allergy status to other antibiotic agents; Z91.048 Other nonmedicinal substance allergy status; Z91.018 Allergy to other foods; Z88.0 Allergy status to penicillin; Z88.8 Allergy status to other drugs, medicaments and biological substances
CPT/HCPCS: 99212

== ENCOUNTER → 2024-11-21 | Outpatient (CLI) | payer OTHER ==
[2024-11-21 14:20] VITALS: BP 122/78; PULSE 93; RESP 19; TEMP 97.9
--- NOTE | 2024-11-21 16:11 | P.PAINPG ---
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 Pain level is provoked at 6-7 /10 in intensity, constant, predominantly axial, localized in the lumbar spine, throbbing in character w occasional shooting towards the back of the LEs. Pain is provoked by over activity and valsalva maneuver. Pain is alleviated with physician guided home exercise regimen 4-5 times weekly since Jul 2024, heat, ice, medications, repositioning and rest. Interventional pain procedures completed include Caudal BLAKE (09/04) Patient is currently on Neurontin Patient denies any side effects of the medication(s), denies excessive drowsiness or sleepiness, denies suicidal ideation and reports that the current pain medication is helping to control the pain and improve activities of daily living. Patient denies any motor or sensory deficits. Patient denies any fever or night sweats, denies any change in the bowel movements or urination. Physical Examination: -Constitutional: Cooperative. Not in acute distress . - Neurologic: Cranial nerve II to XII intact. No focal neurological deficits. - Psychatric: Alert & oriented x 3. Matching mood & appropriate affect. Judgment and insight intact. - Musculoskeletal: Cervical spine: Muscle bulk/ tone/ strength in the bilateral upper extremities normal Vertebral body tenderness to palpation over Spurling test positive Distraction test positive Facet loading test positive TTP Thoracic spine Muscle bulk / tone/ strength in the bilateral paraspinal muscles normal Vertebral body tender to palpation over Facet loading test positive TTP Lumbar spine: Motor bulk/ tone/ strength lower extremities , thigh and legs : 5/5 Deep tendon reflexes : Normal Knee Jerk. Normal Ankle Jerk . Vertebral body tenderness to palpation over L5 Desai Test positive Lumbar Facet Loading Test positive Straight Leg Raise: positive at 30 degrees right side/ left side Gaenslen's Test positive Sacral spine : Severe tenderness over the Sacroiliac joint: right side / left side Range of motion: Flexion of the lumbar spine <60 degrees Range of motion: Extension of the lumbar spine <20 degrees Gaenslen's Test positive right side / left side Nanci test: positive right side / left side Thigh Thrust Test positive right side / left side Sacral Thrust Test positive right side / left side Assessment and plan: Chronic LBP secondary to L5-S1 radiculopathy, spondylosis with facet arthropathy without myelopathy Recommendation of medication management. Chronic and current use of high-risk medication (Opioids). The patient was counseled about risk of opioid use, psychological risk associated with opioids and was orally counseled to not overuse , divert or sell medications. Pt is to store medication in a safe location. The patient is counseled against driving while using narcotic medications and also not to use alcohol or any illicit recreational drugs. Patient verbalized understanding that the lack of compliance will result in failure to renew narcotic prescription(s) as well as possible discharge from the clinic Diagnoses, prognosis and treatment options including but not limited to physical therapy, surgical interventions, interventional therapies and medication management including narcotics and adjuvant medication were discussed. All patient questions answered . Opiate/ narcotic agreement signed 09/26/24. UDS collected 11/21/24. MAPS reviewed and it was appropriate. Prescription refill for Tramadol 50mg #90 1 RF. All questions answered. I have spent less than 30 minutes on patient care today. Dr Parra was available by phone for the evaluation of this patient. The time was used to review the medical records including relevant urine studies and Prescription history (MAPs), review of the available imaging, evaluation and examination of the patient, coordination of care with the medical staff and if applicable referring physicians, as well as creation of the medical record - Pain Location Lower Back Non-Pharmacological Interventions: Heat, Ice, Inactivity PQRS Narrative: Smoking Status Former smoker Hx Alcohol Use (MH) No Home Medications: Ambulatory Orders lamoTRIgine [LaMICtal] 150 mg PO BID 09/12/23 Gabapentin [Neurontin] 100 mg PO TID PRN 04/02/24 Loratadine 10 mg PO DAILY PRN 04/02/24 Meloxicam [Mobic] 15 mg PO HS 04/02/24 Ondansetron Odt [Zofran Odt] 4 mg PO Q8HR PRN #10 tab 04/02/24 busPIRone HCL [Buspar] 30 mg PO BID 04/02/24 Meclizine [Antivert] 25 mg PO TID PRN #15 tab 04/15/24 Metoclopramide HCl [Reglan] 10 mg PO Q8HR PRN #15 tab 08/22/24 diazePAM [Valium] 5 mg PO DIRECTED #1 tab 08/30/24 Fish Oil/Dha/Epa [Fish Oil 1,200 mg Fish Oil] 1 each PO DAILY 09/11/24 traMADol HCL 50 mg PO TID PRN 30 Days #90 tab 11/21/24 Controlled Substance Measures - Controlled Substance Measures Is patient prescribed a controlled substance at discharge?: Yes If prescribed controlled substance>3 days was MAPS reviewed?: Yes
== END ==
LOC: PNWHC3 13:52
PROVIDERS: ATTEND Specialist
DX: M47.27 Other spondylosis with radiculopathy, lumbosacral region (principal); Z87.891 Personal history of nicotine dependence; Z91.048 Other nonmedicinal substance allergy status; Z91.018 Allergy to other foods; Z88.0 Allergy status to penicillin; Z88.8 Allergy status to other drugs, medicaments and biological substances
CPT/HCPCS: 80307; G0463; 99211